=== PATIENT | female | born 1980 | race American Indian/Alaskan Native ===

== ENCOUNTER 2024-06-02 22:20 | Emergency (ER) | payer OTHER ==
[~2024-06-02] VITALS: Ht 170.2 cm; Wt 90.0 kg
[~2024-06-02 22:20] MED LIST: BACTRIM DS TAB1 EACH PO; CALCIUM + D SO1 EACH PO; CALCIUM500 MG PO; CYCLOBENZAPRINE10 MG PO; FLEXERIL10 MG PO; FLONASE ALLERG9.9 ML NAS; FLONASE2 SPRAY; GENTAMICIN SULFA5 ML OPTH; HYDROCODON-ACE1 EAC8 PO; IBU800 MG PO; KEFLEX500 MG PO; LEVOTHYROXINE25 MC1 PO; METAMUCIL0.4 GM PO; MINERAL OIL1 ML PO; MIRALAX119 GM PO; MIRALAX17 GM PO; NAPROXEN500 MG PO; REGLAN10 MG PO; ROBAXIN500 MG PO; SENOKOT-S TABL1 EACH PO; TOBRADEX ST EYE5 ML OPTH; TYLENOL EXTRA500 MG PO; VICODIN HP 10-1 EAC1 PO; VITAMIN B-121000 MC3 PO; VITAMIN D-40010 MCG PO; VITAMIN D5000 UNIT PO
[2024-06-02] MEDS ORDERED: SODIUM CHLORIDE 0.9% 500 ML IV PRN (23:15)
[2024-06-02 23:37] LABS: BASOPHILS 0.4 % (0-2); HEMATOCRIT 29.8 % (35.0-50.0); HEMOGLOBIN 9.3 g/dL (12.0-18.0); LYMPHOCYTES 22.6 % (24-44); MCH 22.7 (27-36); MCHC 31.2 g/dl (30-36); MCV 72.9 fl (81-99); MONOCYTES 4.9 % (0-12); NEUTROPHILS 71.1 % (39-80); PLATELET COUNT 268 K/uL (140-440); RBC 4.09 M/ul (4.3-5.7); RDW 16.6 (10.5-15.0)
[2024-06-02 23:53] LABS: ALBUMIN 3.2 g/dL (3.4-5.0); ALBUMIN/GLOBULIN RATIO 0.89 (1.1-2.4); ANION GAP 9.3 (7-21); BILIRUBIN, TOTAL 0.3 ng/dL (0.2-1.0); BUN/CREATININE RATIO 11.86 (6.0-28.6); CALCIUM 8.6 mg/dL (8.5-10.1); CREATININE, SERUM 0.59 mg/dL (0.55-1.02); POTASSIUM 3.3 mmol/L (3.5-5.1); PROTEIN, TOTAL 6.8 g/dL (6.4-8.2)
[2024-06-03 00:14] LABS: BILIRUBIN, URINE NEGATIVE (negative); BLOOD/HGB, URINE NEGATIVE (Negative); KETONE, URINE NEGATIVE (Negative); LEUK ESTERASE, URINE NEGATIVE (negative); NITRITE, URINE NEGATIVE (negative); PH, URINE 7.5 (5-7)
[2024-06-03] MEDS ORDERED: PYRIDIUM200 MG PO (00:35)
[2024-06-03] MEDS ORDERED: OXYBUTYNIN CHLOR5 MG PO (00:36)
[2024-06-03] MEDS ORDERED: oxyBUTYnin chloride 5 MG TAB PO ONE (00:45)
[2024-06-03 01:08] VITALS: BP 118/66
[2024-06-03 06:04] LABS: AMPHETAMINES, URINE POSITIVE (NEGATIVE); BARBITURATES, URINE NEGATIVE (NEGATIVE)
[2024-06-03 06:05] LABS: BENZODIAZEPINE, URINE NEGATIVE (NEGATIVE); BUPRENORPHINE, URINE NEGATIVE (NEGATIVE); CANNABINOID, URINE POSITIVE (NEGATIVE); COCAINE, URINE NEGATIVE (NEGATIVE); ECSTASY, URINE NEGATIVE (NEGATIVE); FENTANYL, URINE POSITIVE (NEGATIVE); METHADONE, URINE NEGATIVE (NEGATIVE); OPIATES, URINE NEGATIVE (NEGATIVE); OXYCODONE, URINE NEGATIVE (NEGATIVE); PHENCYCLIDINE, URINE NEGATIVE (NEGATIVE)
== END 2024-06-03 01:05 | disposition home or self-care (01) ==
LOC: ED 22:20
PROVIDERS: Family Medicine
DX: R30.0 Dysuria (principal); R33.9 Retention of urine, unspecified; Z88.8 Allergy status to other drugs, medicaments and biological substances; Z79.899 Other long term (current) drug therapy
CPT/HCPCS: 36415; 51701; 51798; 80053; 80307; 81003; 85025; 99283-25; J7040

== ENCOUNTER 2024-10-09 17:05 | Inpatient (IN) | payer OTHER ==
[~2024-10-09] VITALS: Ht 170.2 cm; Wt 89.6 kg
[~2024-10-09 17:05] MED LIST changes: +OXYBUTYNIN CHLOR5 MG PO; +PYRIDIUM200 MG PO
[2024-10-09] MEDS ORDERED: ondansetron HCL 4 MG/2 ML VIAL IV ONE (18:45)
[2024-10-09 19:01] LABS: BASOPHILS 0.2 % (0-2); EOSINOPHILS 0.3 % (0-6); HEMATOCRIT 35.9 % (35.0-50.0); HEMOGLOBIN 11.6 g/dL (12.0-18.0); LYMPHOCYTES 20.5 % (24-44); MCH 22.8 (27-36); MCHC 32.3 g/dl (30-36); MCV 70.6 fl (81-99); MONOCYTES 8.1 % (0-12); NEUTROPHILS 70.9 % (39-80); PLATELET COUNT 304 K/uL (140-440); RBC 5.08 M/ul (4.3-5.7); RDW 19.7 (10.5-15.0)
[2024-10-09 19:18] LABS: ALBUMIN 3.3 g/dL (3.4-5.0); ALBUMIN/GLOBULIN RATIO 0.87 (1.1-2.4); ANION GAP 13.4 (7-21); BILIRUBIN, TOTAL 0.9 mg/dL (0.2-1.0); BUN/CREATININE RATIO 9.25 (6.0-28.6); CREATININE, SERUM 0.54 mg/dL (0.55-1.02); POTASSIUM 3.4 mmol/L (3.5-5.1); PROTEIN, TOTAL 7.1 g/dL (6.4-8.2)
[2024-10-09 19:22] LABS: BILIRUBIN, URINE NEGATIVE (negative); BLOOD/HGB, URINE NEGATIVE (Negative); KETONE, URINE TRACE (Negative); LEUK ESTERASE, URINE NEGATIVE (negative); NITRITE, URINE NEGATIVE (negative); PH, URINE 7.5 (5-7)
[2024-10-09] MEDS ORDERED: LACTATED RINGER'S 1,000 ML IV ONE (19:45)
[2024-10-09] MEDS ORDERED: KETOROLAC TROMETHAMINE 30 MG/ML VIAL IV ONE (19:45)
[2024-10-09] MEDS ORDERED: GLYCERIN 2 GM SUPP PR ONE (19:45)
[2024-10-09] MEDS ORDERED: FAMOTIDINE 20 MG/ 2 ML VIAL IV ONE (20:00)
[2024-10-09] MEDS ORDERED: LACTATED RINGER'S 1,000 ML IV SCH (21:30)
[2024-10-09] MEDS ORDERED: HYDROmorphone HCL 1 MG/ML SYR IV PRN (21:30)
[2024-10-09] MEDS ORDERED: MEROPENEM 2,000 MG in SODIUM CHLORIDE 0.9% 250 ML IV ONE (21:30)
[2024-10-09] MEDS ORDERED: MEROPENEM 1,000 MG VIAL IV ONE (21:45)
[2024-10-09 22:43] LABS: AMPHETAMINES, URINE POSITIVE (NEGATIVE); BARBITURATES, URINE NEGATIVE (NEGATIVE); BENZODIAZEPINE, URINE NEGATIVE (NEGATIVE); BUPRENORPHINE, URINE NEGATIVE (NEGATIVE); COCAINE, URINE NEGATIVE (NEGATIVE); ECSTASY, URINE POSITIVE (NEGATIVE); FENTANYL, URINE POSITIVE (NEGATIVE); OPIATES, URINE NEGATIVE (NEGATIVE); OXYCODONE, URINE NEGATIVE (NEGATIVE)
[2024-10-09] MEDS ORDERED: KETOROLAC TROMETHAMINE 30 MG/ML VIAL ONE (22:45)
[2024-10-09] MEDS ORDERED: propofoL 200 MG/20 ML VIAL ONE (22:45)
[2024-10-09] MEDS ORDERED: ondansetron HCL 4 MG/2 ML VIAL ONE (22:45)
[2024-10-09] MEDS ORDERED: DEXAMETHASONE SOD PHOS 4 MG/ML VIAL ONE (22:45)
[2024-10-09] MEDS ORDERED: fentaNYL citrate 100 MCG/2 ML VIAL ONE ×2 (22:46→23:16)
[2024-10-09] MEDS ORDERED: LIDOCAINE HCL 2% 5 ML SDV ONE (22:46)
[2024-10-09] MEDS ORDERED: SUCCINYLCHOLINE IN 0.9% NACL 200 MG/10 ML SYRINGE ONE (22:46)
[2024-10-09 22:56] LABS: CANNABINOID, URINE POSITIVE (NEGATIVE); METHADONE, URINE POSITIVE (NEGATIVE); PHENCYCLIDINE, URINE NEGATIVE (NEGATIVE)
[2024-10-09] MEDS ORDERED: ROCURONIUM BROMIDE 50 MG/5 ML SYR ONE (23:07)
[2024-10-10] VITALS (17 sets, daily range): BP systolic 123–166; BP diastolic 76–93
[2024-10-10] MEDS ORDERED: SEVOFLURANE 250 ML BTL ONE (00:23)
[2024-10-10] MEDS ORDERED: SODIUM CHLORIDE 0.9% 20 ML IV ONE ×2 (00:24→02:08)
[2024-10-10] MEDS ORDERED: HYDROmorphone HCL 2 MG/ML VIAL ONE (00:24)
[2024-10-10] MEDS ORDERED: ROCURONIUM BROMIDE 50 MG/5 ML SYR ONE (00:27)
[2024-10-10] MEDS ORDERED: LACTATED RINGER'S 1,000 ML IV ONE (00:44)
[2024-10-10] MEDS ORDERED: fentaNYL citrate 100 MCG/2 ML VIAL ONE (02:06)
[2024-10-10] MEDS ORDERED: SODIUM CHLORIDE 0.9% 40 ML IV ONE (02:07)
[2024-10-10] MEDS ORDERED: dexmedeTOMIDine HCl 200 MCG/2 ML VIAL ONE (02:07)
[2024-10-10] MEDS ORDERED: Ropivacaine HCl 0.5% 30 ML VIAL ONE (02:07)
[2024-10-10] MEDS ORDERED: DEXAMETHASONE SOD PHOS 4 MG/ML VIAL ONE (02:07)
[2024-10-10] MEDS ORDERED: SUGAMMADEX SODIUM 200 MG/2 ML ML ONE (02:46)
--- NOTE | 2024-10-10 03:11 | NUR ---
10/10/24 0311 Sheets,Marge 0254 PT ARRIVED TO PACU WITH ORAL AIRWAY AND 6L VIA MASK. RESP EVEN AND UNLABORED. 0307 PT STARTED SWALLOWING AND MOVED HER HEAD TO VERBAL STIMULI. PT FOLLOWED COMMANDS TO OPEN HER MOUTH AND ORAL AIRWAY AND O2 MASK REMOVED. PT TURNED HEAD TO SIDE AND EYES REMAIN CLOSED. RESP EVEN AND UNLABORED.
[2024-10-10] MEDS ORDERED: MIDAZOLAM HCL 2 MG/2 ML VIAL IV PRN (03:15)
[2024-10-10] MEDS ORDERED: KETOROLAC TROMETHAMINE 30 MG/ML VIAL IV PRN (03:15)
[2024-10-10] MEDS ORDERED: IBLOOD GLUCOSE TEST STRIP 1 EA TEST VI PRN (03:15)
[2024-10-10] MEDS ORDERED: fentaNYL citrate 50 MCG/ML SDV IV PRN (03:15)
[2024-10-10] MEDS ORDERED: ondansetron HCL 4 MG/2 ML VIAL IV PRN ×2 (03:15)
[2024-10-10] MEDS ORDERED: MORPHINE SULFATE 10 MG/ML VIAL IV PRN (03:15)
[2024-10-10] MEDS ORDERED: NALOXONE HCL 0.4 MG SYR IV PRN (03:15)
[2024-10-10] MEDS ORDERED: LACTATED RINGER'S 1,000 ML IV SCH (03:15)
[2024-10-10] MEDS ORDERED: LIDOCAINE 2% VISCOUS 6 ML SYR TOP ONE (03:30)
[2024-10-10] MEDS ORDERED: MIRALAX17 GM PO (04:05)
--- NOTE | 2024-10-10 05:19 | NUR ---
LATE ENTRY: PATIENT ARRIVED TO UNIT FROM PACU AT 03:30. PATIENT AO TO PERSON, PLACE, TIME AND SITUATION. VS CHARTED. REPORT RECEIVED FROM AIME GILMORE. CELESTINO DRAIN IN PLACE AND DRAINING SEROSANGUINOUS FLUID. MIDLINE INCISION INTACT WITH SMALL AMOUNT OF DRAINAGE TO INFERIOR PORTION OF SURGICAL DRESSING. STOMA APPEARS DARK RED. COLOSTOMY APPLIACE IN PLACE WITH SMALL AMOUNT OF SEROSANGUINOUS OUTPUT. PATIENT ORIENTED TO NURSING STAFF, ROOM AND CALL LIGHT FUNCTIONS. PATIENT ARRIVED TO UNIT AFEBRILE AND ON ROOM AIR.
[2024-10-10] MEDS ORDERED: SODIUM CHLORIDE 0.9% 100 ML IV ONE ×3 (05:30→18:54)
[2024-10-10 05:33] LABS: BASOPHILS 0.3 % (0-2); HEMATOCRIT 36.7 % (35.0-50.0); HEMOGLOBIN 11.7 g/dL (12.0-18.0); LYMPHOCYTES 6.9 % (24-44); MCH 22.8 (27-36); MCHC 31.9 g/dl (30-36); MCV 71.5 fl (81-99); MONOCYTES 5.8 % (0-12); PLATELET COUNT 276 K/uL (140-440); RBC 5.14 M/ul (4.3-5.7)
[2024-10-10 05:40] LABS: ALBUMIN 3.1 g/dL (3.4-5.0); ALBUMIN/GLOBULIN RATIO 0.82 (1.1-2.4); ANION GAP 11.7 (7-21); BILIRUBIN, TOTAL 0.8 mg/dL (0.2-1.0); BUN/CREATININE RATIO 12.12 (6.0-28.6); CALCIUM 8.5 mg/dL (8.5-10.1); CREATININE, SERUM 0.66 mg/dL (0.55-1.02); POTASSIUM 3.7 mmol/L (3.5-5.1); PROTEIN, TOTAL 6.9 g/dL (6.4-8.2)
[2024-10-10] MEDS ORDERED: MEROPENEM 500 MG in SODIUM CHLORIDE 0.9% 100 ML IV SCH (06:00)
[2024-10-10] MEDS ORDERED: MEROPENEM 1,000 MG in SODIUM CHLORIDE 0.9% 100 ML IV SCH (06:00)
--- NOTE | 2024-10-10 06:05 | NUR ---
PATIENT CONTINUES TO ENDORSE 9/10 PAIN IN ABDOMEN STATING "IT HURTS LIKE WHEN I CAME IN" PATIENT IS HOLLERING IN PAIN IN SPITE OF PHARMACOLOGICAL INTERVENTIONS. PATIENT APPEARS ANXIOUS AND HARD TO CONSOLE. CALL PLACED TO DR. SCOTT. ORDERS RECEIVED FOR THE FOLLOWING: CHANGE IV DILAUDID TO 0.5-1.0MG Q30 MIN PRN SEVERE PAIN, 4MG PO DILAUDID Q4H PRN AND GIVE 1MG IV ATIVAN X ONE DOSE. PATIENT ABLE TO FEEL COLD SENSATION OF ALCOHOL WIPE ON ABD IN ALL QUADRANTS. DR. SCOTT NOTIFIED.
[2024-10-10] MEDS ORDERED: HYDROmorphone HCL 4 MG TAB PO PRN (06:15)
[2024-10-10] MEDS ORDERED: LORazepam 2 MG/ML VIAL IV ONE (06:15)
[2024-10-10] MEDS ORDERED: HYDROmorphone HCL 1 MG/ML SYR IV PRN (06:15)
--- NOTE | 2024-10-10 06:25 | NUR ---
ATIVAN ADMINISTERED. PATIENT NOW RESTING WITH EYES CLOSED. PATIENT REMAINS ON RA WITH O2 SAT 97-99%.
--- NOTE | 2024-10-10 06:51 | NUR ---
PATIENT WOKE AND C/O OF 9/10 PAIN. PATIENT RESTLESS IN BED AND CRYING. MEDICATED WITH 1MG IV DILAUDID. RR14, SPO2 98% ON RA. CALL LIGHT IN REACH. GUSTAVO DRAIN TOTAL OUTPUT SINCE ARRIVAL TO UNIT: 175. URINE OUTPUT SINCE ARRIVAL TO UNIT: 750. URINE IS DARK YELLOW TO SALVADOR COLORED. CELIS REMAINS IN PLACE AND PATENT. EDUCATION PROVIDED ON NOT ATTEMPTED TO TURN AND LAY FULLY ON RIGHT SIDE D/T CELESTINO DRAIN IN PLACE. EDUCATION ALSO PROVIDED TO BE MINDFUL OF DRAIN AND CALL NURSING STAFF FOR ASSISTANCE. CALL LIGHT IN REACH. PATIENT RESTING WITH EYES CLOSED AT THIS TIME.
--- NOTE | 2024-10-10 07:45 | NUR ---
REPORT RECEIVED FROM NETWORK SYSTEMS CONSULTANT RN. PATIENT RESLTESS IN BED. MOANING WITH CONSTANT MOVEMENT OF UPPER AND LOWER EXTREMITIES. PATIENT MOVING HOB UP AND DOWN CONSTANTLY. RN IN ROOM TO DISCUSS POC AND PAIN MANAGMENT. RN GAVE ICE CHIPS AND SMALL SIPS OF WATER. PATIENT TOLLERATED WELL WITH NO ISSUES OR CONCERNS FOR SWALLOWING. PRN PO PAIN MEDICATIONS ADMINSTERED. MEDICATION SWALLOWED WELL WITH NO CONCERNS.
--- NOTE | 2024-10-10 08:05 | NUR ---
PATIENT ALERT AND ORIENTED TO PERSON, PLACE AND LOCATIONS. UNAWARE OF DATE BUT KNOWS CORRECT DATE WITHIN 2 WEEKS. SPO2 WNL ON ROOM AIR, RR WNL NO NOTED RESPIRATORY DISTRESS. HEART SOUNDS REGUALR, NORMAL SINUS RYTHYM NOTED. PATIENT CONITNUES TO BE RESTLESS IN BED. NOTED METHADONE ON URINE TOX. DISCUSSED WITH PATIENT METHADONE USAGE. PATIENT REPORTS SHE HAS BEEN TAKING A "HALF DOSE" FROM HER FRIEND FOR THE LAST FEW DAYS FOR HER SEVERE ABD PAIN/CONSTIPATION. PATIENT IS UNAWARE OF HOW LARGE A DOSE SHE WAS TAKING. PT ALSO REPORTS SHE HAD TAKEN FENTANYL IN THE LAST FEW DAYS TO HELP WITH THE PAIN/CONSTIPATION BUT IS UNAWARE OF THE DOSE. LUNGS CTA, BOWEL TONES ACITVE X 4 QUADRANTS. 2 LAP SITES WITH BANDAIDS IN PLACE APPEAR WNL. MIDLINE INCISION WITH DRESSING INTACT, NOTED SMALL AMOUNT OF DRAINAGE TO INFERIOR ASPECT OF DRESSING. CELESTINO DRAIN IN PLACE AND FUNCTIONING WNL.CELIS CATHERTER DRAINAING YELLOW URINE. NOTED EDMEA TO BLLE. SCD'S IN PLACE. IV SITES PATENT AND WNL. INF INSUING WITH NO ISSUES OR CONCERNS. VSS.
[2024-10-10] MEDS ORDERED: FAMOTIDINE 20 MG/ 2 ML VIAL IV SCH (09:00)
--- NOTE | 2024-10-10 09:00 | NUR ---
PATIENT WAXES AND WANES ON WAKING AND CALLING OUT/MOANING AND DRIFTING OFF TO SLEEP.
--- NOTE | 2024-10-10 09:44 | NUR ---
CALL LIGHT ANSWERED. PATIENT RESTLESS, MOVING HOB UP AND DOWN CONSTANTLY. MOANING AND GROANING. RN IN TO ASSESS PAIN. REPORTS PAIN IS A 8/10 TO LOWER ABDOMEN AND LOWER BACK. PRN ADMINSTERED. DRESSINGS RAMAIN CDI. DENIES ANY NASEA, REORTS SHE FEELS LIKE SHE HAS "GAS". ICE CHIPS PFFERED. NO FURTHER NEEDS. PATIENT SETTLING AT THIS TIME.
--- NOTE | 2024-10-10 10:45 | NUR ---
PATIENT RESTING IN BED WITH EYES CLOSED. RESPIRATIONS EVEN AND UNLABORED. PATIENT APPEARS TO BE COMFORTABLE AT THIS TIME. IVF INFUSING WNL. CALL LIGHT WITHIN REACH. BED ALARM IN PLACE.
--- NOTE | 2024-10-10 11:55 | NUR ---
PATIENT RESTING IN BED, REPORT PAIN LEVEL 6/10. PRN ADMINSTERED. ASSESSMENT OCMPLETED. MIDLINE INCISION REMAINS WNL NO NEW DRAINAGE NOTED. CELESTINO DRAIN EMPTIED, CELIS CATHERTER DRAINING YELLOW URINE. BOWEL TONES REMAINS ACTIVE. NEW COLOSTOMY WITH APPLIANCE IN PLACE, STOMA RED IN COLOR WNL. VSS. IV SITE REMAIN PATENT.
--- NOTE | 2024-10-10 13:00 | NUR ---
IN ROOM TO SEE PATIENT.
[2024-10-10] MEDS ORDERED: POLYETHYLENE GLYCOL 3350 1 PACKET PO SCH (13:50)
[2024-10-10] MEDS ORDERED: IBUPROFEN 600 MG TAB PO PRN (14:00)
[2024-10-10] MEDS ORDERED: ACETAMINOPHEN 500 MG TAB PO SCH (14:00)
--- NOTE | 2024-10-10 14:14 | HP ---
[facility] [address], [place] [address] Signed ADMISSION DATE: 10/09/2024 REASON FOR ADMISSION: Free intraperitoneal air, probable perforated ulcer. HISTORY OF PRESENT ILLNESS: This 43-year-old [place] woman has ongoing drug substance abuse issues including use of fentanyl and occasional use of marijuana. In the past 48 hours, she has had rather significant pain in the epigastric area. She presented to the emergency room, was thoroughly evaluated by Dr. Avelar. This included a CT scan of the abdomen, which shows moderate volume of pneumoperitoneum mostly in the right upper abdomen. There is some gas and thickened thinning of the gastric wall suggesting possible gastric ulcer perforation. She is admitted for further evaluation and care. The patient denies any prior history of actual ulcer or stomach surgery in any way. She does use fentanyl in a relatively routine way as well as smokes. Her surgical history does include hysterectomy, but she now has what sounds like pelvic relaxation issues with probable vaginal prolapse. Surgery is planned for that at some point. The patient does have substance abuse using fentanyl and marijuana as previously described. She recently used yesterday the fentanyl to control her pain. Additionally, the patient has had two pieces of pizza and part of a diet Coke while waiting in the emergency room, though she was advised against doing this and was not known to have done this by her attending nurses. SOCIAL HISTORY: She is accompanied by boyfriend. He was laying on the ground, deep and asleep right now. She has three children, all of them grown, the youngest 21 years of age. REVIEW OF SYSTEMS: She denies any shortness of breath or actual chest pain. She has had no hematemesis or blood per rectum. Denies prior history of ulceration. PHYSICAL EXAMINATION: GENERAL: A pleasant, fair complexion [place] woman who is quite uncomfortable and somewhat teary-eyed. HEENT: The mucous membranes are slightly moist. Trachea is midline. She has no crepitus in the neck. Electronically Signed By: NIKOLE SCOTT MD 10/10/24 1414 PATIENT NAME: SHAMA MERLOS HISTORY AND PHYSICAL DATE OF : 80 REPORT #: [id number] PHYSICIAN: NIKOLE SCOTT MD PCP: RON GONZALEZ MD REPORT IS CONFIDENTIAL AND NOT TO BE RELEASED WITHOUT AUTHORIZATION [facility] [address], [place] [address] Signed CHEST: Clear. HEART: Regular without murmur. ABDOMEN: Scaphoid. There is marked tenderness in epigastric area. There is no palpable mass. She has no ascites. Left lower abdomen is nontender at this time. LABORATORY STUDIES: Show white count of only 8.6, hematocrit is 35.9, platelets are 304,000. Chem profile shows potassium of 3.4, creatinine of 0.54. Liver enzymes are normal. Albumin is 3.3. Beta HCG is negative (recall patient has had hysterectomy as well). Urinalysis is essentially normal. The CT scan report has been reviewed and previously described. Personal review of the images show free intraperitoneal air with some gastric contents. The gallbladder appears normal. There is haziness in the area of the naya hepatis. I see no evidence of diverticular disease in the left lower abdomen. There is some free air in this area, however too. ASSESSMENT: The patient is at most risk of perforated gastric ulcer given her smoking, location of pain and so forth. It is surprising she does have a more elevated white count, though she is markedly tender on palpation. She does not have much of any tenderness in the left lower abdomen and therefore gastric ulcer or duodenal ulcer perforation is the most likely underlying diagnosis. I discussed the findings on CT scan and clinical examination and have recommended diagnostic laparoscopy and definitive management of whatever perforated viscus is identified. Most likely this would be a perforated pre-pyloric ulcer of the stomach, though other etiologies could be present including perforated diverticulitis (less likely) or perforated small bowel or stomach or other hollow viscus not foreseen at this point. The risk of bleeding, infection, need for open procedure, and so forth were all reviewed in detail. She understands, wished to proceed. Though she did not heed the direction of nurse and physician to avoid eating, she has had some food while under observation in the emergency room. I do not believe this would or should delay emergency intervention to provide definitive treatment of the underlying problem whatever its etiology. She has begun treatment with meropenem and IV fluids are running. We will plan to do this operation as soon as the team can arrive. It is now 10 p.m. Nikole Scott MD Electronically Signed By: NIKOLE SCOTT MD 10/10/24 1414 PATIENT NAME: SHAMA MERLOS HISTORY AND PHYSICAL DATE OF : [birth year] REPORT #: [id number] PHYSICIAN: NIKOLE SCOTT MD PCP: RON GONZALEZ MD REPORT IS CONFIDENTIAL AND NOT TO BE RELEASED WITHOUT AUTHORIZATION [address] [address] Signed /SUMMER /[id number] cc: MD Jonathan Colby MD Copies: RON GONZALEZ MD ~ Electronically Signed By: NIKOLE SCOTT MD 10/10/24 1414 PATIENT NAME: JENSSHAMARIZWANA BARRIENTOS HISTORY AND PHYSICAL DATE OF : 80 REPORT #: [id number] PHYSICIAN: NIKOLE SCOTT MD PCP: RON GONZALEZ MD REPORT IS CONFIDENTIAL AND NOT TO BE RELEASED WITHOUT AUTHORIZATION
--- NOTE | 2024-10-10 14:14 | OR ---
[facility] [address], [place] [address] Signed DATE OF OPERATION: 10/10/2024 SURGEON: Nikole Scott MD PREOPERATIVE DIAGNOSIS: Generalized peritonitis with free intra-abdominal air, source uncertain. POSTOPERATIVE DIAGNOSIS: Sigmoid perforation secondary to stercoral ulceration. PROCEDURES: 1. Extensive exploratory laparoscopy. 2. Open laparotomy with segmental colonic resection and end colostomy and Valdo's pouch. 3. Fecal disimpaction, intraoperative. 4. Splenic flexure mobilization. All this prolonged, complicated and difficult. ANESTHESIA: General endotracheal; Tennille White CRNA. INDICATION: This 43-year-old woman has numerous medical problems including obesity and incessant drug use. She presented to the emergency room this evening with generalized abdominal pain that had been going on for [address] Jonathan Avelar included a CT scan of the abdomen, which showed moderate amount of free intraperitoneal air. There was inflammatory change in the left lower abdomen as well as in the epigastric area. She has been fluid resuscitated and has been recommended to undergo laparoscopy and laparoscopic remedy of the problem if possible. The risk of bleeding, infection, need for bowel resection, need for ostomy, and other unforeseen complications was reviewed with her in detail prior to operation. Understanding that she wished to proceed. FINDINGS: On laparoscopy, there was no evidence of generalized peritoneal contamination. Extensive evaluation of the upper abdomen on the high probability that this represented peptic perforation was undertaken, but there was in fact no gastric or duodenal ulceration or perforation. The gallbladder was floppy and relatively normal as was the liver. The small bowel was run from the terminal ileum to the ligament of Treitz showing a jejunal diverticulum, but without perforation or sign of ischemia. Ultimately, laparoscopy did confirm an area of a microperforation of the sigmoid colon Electronically Signed By: NIKOLE SCOTT MD 10/10/24 1414 PATIENT NAME: SHAMA MERLOS OPERATIVE REPORT DATE OF : 80 REPORT #: [id number] PHYSICIAN: NIKOLE SCOTT MD PCP: RON ROWLAND MD REPORT IS CONFIDENTIAL AND NOT TO BE RELEASED WITHOUT AUTHORIZATION [facility] [address] [place], [place] [address] Signed and deserosalization that was extensive related to very hard stool ball (stercoral colitis). This necessitated segmental bowel resection. Given the stool burden proximally and distally, primary anastomosis was deemed inadvisable and decompression of extensive stool burden was undertaken (fecal disimpaction intraoperatively) so as to allow for resolution of her colonic problem anticipating takedown of the colostomy in the future. DESCRIPTION OF PROCEDURE: The patient was brought to the operating room, given a general endotracheal anesthetic. An orogastric tube was placed. A Castro catheter was additionally placed. The abdomen was prepared with chlorhexidine solution and draped sterilely. She does have a fair amount of abdominal obesity. An infraumbilical incision was made and using an open Mary cannula technique, the abdomen was entered and pneumoperitoneum was achieved to a level of 14 mmHg of carbon dioxide gas. Intra-abdominal inspection showed no sign of ascites or carcinomatosis nor gross contamination. Attention was turned first to the upper abdomen as that was considered the more likely site of free air. Irrigation was undertaken in the area of the pylorus and there was some turbid fluid in the area. Further manipulation showed incomplete evaluation and therefore two additional trocars were placed in the epigastric and right midclavicular line. With two-hand manipulation, the duodenum and surrounding structures could be more fully evaluated. There appeared to be no evidence of perforated duodenal or gastric ulcer. Irrigation was undertaken and insufflation through the orogastric tube in the upper abdomen undertaken to assess for enteric leak. There was none and good security of the integrity of the stomach and duodenum was noted. Mindful that her pneumoperitoneum was significant, identification of the site of perforation was essential and attention to the left lower quadrant and lower abdomen was undertaken. Initial examination showed no obvious gross collection of fluid or focus of purulence or anything of that sort. A suprapubic port was placed to allow for two-hand manipulation of the small bowel. The small bowel was examined with all due care from the terminal ileum proximally to the ligament of Treitz. The only finding noted was a jejunal diverticulum as well as a small antimesenteric tag of fat which may represent a remnant of a Meckel's diverticulum, but certainly no lesion to account for free air or inflammatory change. Specifically, the single jejunal diverticulum was well intact. Mindful that some source of perforation did occur to allow for free air to the extent that was noted on the CT, reinspection of the upper abdomen was undertaken again confirming no sign of problem. From an approach on the patients right side laparoscopic manipulation of the intra abdominal contents was undertaken with focus on the left colon and sigmoid. Ultimately it was found that a small microperforation with enteric staining was noted. The segment of colon corresponding to this was in the Electronically Signed By: NIKOLE SCOTT MD 10/10/24 1414 PATIENT NAME: SHAMA MERLOS OPERATIVE REPORT DATE OF : 80 REPORT #: [id number] PHYSICIAN: NIKOLE SCOTT MD PCP: RON ROLWAND MD REPORT IS CONFIDENTIAL AND NOT TO BE RELEASED WITHOUT AUTHORIZATION [facility] [address] [place], [place] [address] Signed sigmoid. Impressive linear deserosalization of the taenia libera area was noted as well. Manipulation of the colon revealed dense hard stool balls associated with this area almost certainly represented stercoral perforation. On the basis of her underlying microperforation of the sigmoid and the hard stool ball simple drainage was unlikely to beneficial, particularly given the extent of deserosalization of that segment of the colon. On that basis low midline laparotomy was performed with a 15 blade inferior to the umbilicus and later extended just above it, allowing for entry to the abdominal cavity. A Bookwalter retractor was used. Small bowel was packed to the right side of the abdomen and full evaluation of colon could be undertaken. The area in question with a microperforation was easily identified. Beneath it was a dense hard stool ball and deserosalization of the wall of the colon more proximally. Palpation within the rectum showed numerous hard stool balls as well. Elsewhere, the right colon and transverse colon had a thick doughy texture consistent with medium soft stool. It was unlikely that anything other than segmental resection of the perforated bowel would be successful. The white line of Toldt was mobilized using electrocautery and the mesentery corresponding to the mid left colon and sigmoid was incised with electrocautery. Sequential application of hemostats to the vascular pedicles was undertaken and they were secured with 0 silk ties. Rectal stool balls were milked in a retrograde fashion up to the area designated appropriate for resection, which was essentially the distal sigmoid. Antegrade milking of dense stool balls from the left colon was undertaken to be entrapped in the area for resection. A ROCHELLE stapling device was used to transect the mid descending colon as well as the rectosigmoid junction distally. The specimen was passed off the table. Photographs were taken. The colon that remained was completely viable in every way. It was unprepped bowel, but more importantly had a considerable amount of soft diana like stool in the right transverse colon and dense hard stool balls in the left colon and splenic flexure. The splenic flexure was mobilized with all due care using blunt electrocautery dissection. This was rather time consuming as it extended high up to the spleen. When the splenic flexure was fully mobilized, antegrate disimpaction of stool was undertaken. The stapled end of the left colon was incised and secured into a basin and stool balls and diana-like stool milked from the colon into the container. When as much stool as could be forced out was complete, a stapling device was used to resecure the left colon. Irrigation was undertaken throughout the abdominal cavity. Through right lower stab incision, a 7 mm flat Skip drain was placed in the depths of the pelvis. Irrigation was undertaken more fully. An area marked appropriate for end colostomy was designated on the left side of the abdomen. The skin was elevated and incised transversely with a 20 blade and the subcutaneous tissue Electronically Signed By: NIKOLE SCOTT MD 10/10/24 1414 PATIENT NAME: SHAMA MERLOS OPERATIVE REPORT DATE OF : 80 REPORT #: [id number] PHYSICIAN: NIKOLE SCOTT MD PCP: RON ROWLAND MD REPORT IS CONFIDENTIAL AND NOT TO BE RELEASED WITHOUT AUTHORIZATION [address] [address] Signed with electrocautery. A cruciate incision was made in t he rectus sheath, tunneling the colon through the rectus muscle proper. This was delivered with a Jerusalem clamp, taking special care to see that there was no twisting of the colon as it exited from the abdominal cavity. Irrigation was undertaken more fully. The small bowel returned to its normal position and omentum used to cover the enteric contents. The midline fascia was reapproximated with running bidirectional #1 PDS suture. Subcutaneous tissue copiously irrigated and skin closed with stapling device. The segment of colon withdrawn through the ostomy site. The end colostomy was then matured with interrupted 3-0 Vicryl suture. Excellent viability to the colostomy was noted. Digital examination showed the colon to exit in a somewhat tangential manner, but dominantly through the left rectus abdominis muscle. An ostomy appliance was applied. The drain was then applied to bulb suction. Acticoat dressings were applied to the midline incision areas. Drains attached to bulb suction. The patient was extubated in the operating room, taken to the recovery room in good condition having suffered no complication. Sponge, needle, and instrument counts reported as correct x3. The operation was prolonged, complicated, and difficult lasting 4 hours for the aforementioned reasons. MD PRASHANT Genao/PATTI /[id number] cc: Dr. Jonathan Rowland MD Copies: RON ROWLAND MD ~ Electronically Signed By: NIKOLE SCOTT MD 10/10/24 1414 PATIENT NAME: SHAMA MERLOS OPERATIVE REPORT DATE OF : 80 REPORT #: [id number] PHYSICIAN: NIKOLE SCOTT MD PCP: RON ROWLAND MD REPORT IS CONFIDENTIAL AND NOT TO BE RELEASED WITHOUT AUTHORIZATION
--- NOTE | 2024-10-10 14:33 | NUR ---
PATIENT ASSISTED FROM BED TO RECLINER WITH 1 PA ASSIST. PATIENT TOLLERATED WELL. CALL LIGHT WITHIN REACH.
--- NOTE | 2024-10-10 15:30 | NUR ---
PATIENT MOANING AND REPORTS PAIN LEVEL HAS INCREASED. PATIENT REQUESTING TO GET BACK INTO BED. RN EDUCATED PATIENT ON IMPORTANCE OF BEING OUT OF BED POST OP. PATIENT REQUESTING MOMRE PAIN MEDICATIONS. PRN ADMISNTERED. REQUESTING ICE CHIPS. ICE CHIPS GIVEN. CALL LIGHT WITHIN REACH.
--- NOTE | 2024-10-10 16:08 | NUR ---
FAMILY/FRIEND IN TO VISIT PATIENT AT THIS TIME.
--- NOTE | 2024-10-10 17:09 | NUR ---
PATIENT SITTING IN RECLINER. EATING DINNER. REPORTS PAIN 12/22. PRN ADMINSTERED. NO FURTHER NEEDS. CALL LIGHT WITHIN REACH.
--- NOTE | 2024-10-10 18:00 | NUR ---
PATIENT ASSISTED BACK INTO BED. AMBULATED AROUND ROOM. PATIENT DID NOT TOLLERATE WELL. PATIENT CELESTINO DRAIN REMAINS WNL, DRESSING TO ABD REMAINS CDI. BOWEL TONES ACTIVE. IV SITE REMAIN PATENT. PATIENT WITH NO FURTHER NEEDS. CALL LIGHT WITHIN REACH.
[2024-10-10] MEDS ORDERED: SEVOFLURANE 250 ML BTL INH ONE (18:04)
--- NOTE | 2024-10-10 19:51 | NUR ---
CARGO SERVICE SUPERVISOR PROVIDED ICE CHIPS AND JELLO TO PT.
--- NOTE | 2024-10-10 19:52 | NUR ---
REPORT RECEIVED FROM AIME GIFFORD. PATIENT RESTING IN BED WHILE WATCHING TV. C/O ABDOMINAL PAIN. FRESH ICE GIVEN.
--- NOTE | 2024-10-10 20:15 | NUR ---
PATIENT RATES PAIN 7/10 IN HER ABDOMEN. MEDICATED PER EMAR WITH SCHEDULED TYLENOL AND PRN TORADOL. BOTH IVS FLUSHED AND PATENT HOWEVER, LEFT AC IV COVERED WITH WASHCLOTH AND COBAN PATIENT CONTINUOUSLY BENDS ARM THUS CLAMPING OFF IVF. PATIENT IS ANXIOUS AND TEARFUL BUT PARTICIPATES IN ASSESSMEMT. CATH CARE COMPLETED. FACE WASHED. GUSTAVO DRAIN HAS SMALL AMOUNT OF SEROSAGUINOUS OUTPUT. CELIS DRAINING CLEAR YELLOW URINE. OSTOMY BAG NOTED TO ALSO HAVE A SMALL AMOUNT OF SEROSANGUINOUS OUTPUT. STOMA IS DARK RED.
--- NOTE | 2024-10-10 20:31 | NUR ---
CALL PLACED TO DR. SCOTT. ORDER RECEIVED TO MAKE PATIENT MED/SURG STATUS.
--- NOTE | 2024-10-10 21:23 | NUR ---
PATIENT HAS HAD MULTIPLE VISITORS NICOLLE. REQUESTED THAT VISITS STAY BRIEF TO ENCOURAGE REST. PATIENT REQUESTS AYLIN VIERA PROVIDED. CALL LIGHT IN REACH.
--- NOTE | 2024-10-10 21:34 | NUR ---
PATIENT RESTING IN BED WITH EYES CLOSED. RESPIRATIONS EVEN AND UNLABORED. FACIAL EXPRESSION APPEARS RELAXED. CALL LIGHT IN REACH.
--- NOTE | 2024-10-10 22:11 | NUR ---
PATIENT C/O CELIS CATHETER LEAKING. UNDER SHEET NOTED TO BE WET BUT DID NOT SMELL LIKE OR LOOK LIKE URINE. BALLOON TESTED AND REMAINS SEATED. LINENS CHANGED. PATIENT DID NOT TOLERATED TURNING WELL BUT DECLINED GETTING OOB. COMPLAINS OF 8/10 PAIN AFTER TURNING ACTIVITY. MEDICATED WITH 4MG MORPHINE PER EMAR. PLAN OF CARE REVIEWED AND EDUCATION PROVIDE ABOUT REMOVING CELIS CATHETER, CELIS CARE AND INCREASED ACTIVITY. NOTIFIED PATIENT THAT WE WILL GET HER OOB AROUND 0500. PATIENT STARTED CRYING BUT REASSURED THAT REMAINING ACTIVE AND GETTING OOB IS IMPERATIVE TO GETTING HER BOWELS MOVING AND FOR HEALING. PATIENT CONTIUED TO CRY BUT SAID "OK". CALL LIGHT IN REACH.
--- NOTE | 2024-10-10 22:39 | NUR ---
PATIENT CONTINUES TO RATE PAIN 8/10. MEDICATED PER EMAR WITH PRN DILAUDID. THIS RN SAT AT BEDSIDE WITH PATIENT TO DISCUSS STOMA AND OSTOMY APPLIANCE CARE. BAG AND APPLIANCE GIVEN AND DEMONSTRATED USE. PATIENT BECAME TEARFUL BUT ASKED QUESTIONS ON CARE. ENCOURAGED PATIENT TO FAMILIARIZE HERSELF WITH APPLIANCE AND ASK QUESTIONS THEY ARISE.
[2024-10-11] VITALS (7 sets, daily range): BP systolic 124–138; BP diastolic 68–94
[2024-10-11] MEDS ORDERED: SODIUM CHLORIDE 0.9% 100 ML IV ONE ×4 (00:05→18:19)
--- NOTE | 2024-10-11 00:33 | NUR ---
PATIENT RESTING WITH EYES CLOSED. RESPIRATIONS EVEN AND UNLABORED. APPEARS RELAXED, NO MOANING OR GRIMACING NOTED. SPO2 97-100% ON ROOM AIR. CALL LIGHT IN REACH. IVF AND ABX INFUSING WITHOUT DIFFICULTY.
--- NOTE | 2024-10-11 00:54 | NUR ---
CELIS BAG EMPTIED FOR 500ML CLEAR YELLOW URINE. GUSTAVO DRAIN REMAINS COMPRESSED AND NOTED TO HAVE A SMALL AMOUNT OF SEROSANGUINOUS DRAINAGE. ABX INFUSING THROUGH LEFT AC IV BUT PATIENT FREQUENTLY BENDS ARM AND OCCLUDES INFUSION. AC WRAPPED WITH WASHCLOTH AND ARM PLACED ON PILLOW SUPPORT. IV FLUSHES EASILY. PATIENT MOANS AND WHINES DURING INTERVENTION STATING "THIS IS ALL FUCKING BULLSHIT" BUT THEN CLOSES EYES AND APPEARS TO RETURN TO REST. CALL LIGHT AND PERSON ITEMS IN REACH.
--- NOTE | 2024-10-11 01:15 | NUR ---
PATIENT REPORTS FEELING CLAUSTROPHOBIC AND DEMANDS SCD SLEEVES BE REMOVED. EDUCATION PROVIDED ON SCD USE BUT PATIENT CONTINUED TO REFUSE BUT AGREEABLE TO JUST TAKEING A BREAK FROM THEM AT THIS TIME.
--- NOTE | 2024-10-11 01:32 | NUR ---
[facility] ARRIVED AND TOOK PATIENT.
--- NOTE | 2024-10-11 02:13 | NUR ---
PATIENT LYING IN BED RESTING BUT WAKES TO RN IN ROOM. WHEN ASKED ABOUT PAIN AFTER IV MORPHINE DOSE, PATIENT STATES "I DON'T KNOW, I THINK SO". PATIENT PARTICIPATED IN ASSESSMENT. REMAINS AO X3. CELESTINO DRAIN REMAINS COMPRESSED WITH SMALL AMOUNT OF SEROSANGUINOUS OUTPUT; OUTPUT DOES NOT APPEAR TO BE INCREASED FROM LAST ASSESSMENT. CELIS REMAINS PATENT AND DRAINING CLEAR YELLOW URINE. CALL LIGHT IN REACH.
--- NOTE | 2024-10-11 03:27 | NUR ---
PATIENT HEARD MOANING. THIS RN TO ROOM. PATIENT FOUND TO BE USING THE MIRROR IN THE BEDSIDE TABLE TO LOOK AT STOMA AND APPLIANCE. PATIENT ASKS QUESTIONS ABOUT CARE. SHE WAS VERY TEARFUL AND EXPRESSING SELF IMAGE CONCERNS. THIS RN SAT 1:1 WITH PATIENT ALLOWING HER TO EXPRESS HER FEARS, CONCERNS AND ANSWERING QUESTIONS. PATIENT ENDORSES 7/10 PAIN. MEDICATED WITH PRN PO DILAUDID AND MOTRIN. ENCOURAGED REST. CALL LIGHT IN REACH.
--- NOTE | 2024-10-11 05:07 | NUR ---
PATIENT RESTING WITH EYES CLOSED. RESPIRATIONS EVEN AND UNLABORED. O2 SAT 96% RA. NEW BAG OF LR HUNG AND INFUSING. CALL LIGHT IN REACH.
--- NOTE | 2024-10-11 06:06 | NUR ---
PATIENT WOKE TO NAME WHEN THIS RN IN ROOM. VS CHARTED. CELESTINO DRAIN EMPTIED FOR 30ML SANGIUNOUS OUTPUT. PATIENT OOBTC WITH 1 PERSON ASSIST. TOLERATED ACTIVITY WELL WITH MINIMAL COMPLAINT. LEGS ELEVATED IN CHAIR WITH PILLOW SUPPORT. PATIENT CLOSED EYES AND RESTING IN CHAIR WHILE THIS RN IN ROOM. BED LINENS CHANGED. IVF INFUSING. IV ABX HUNG AND INFUSING. CALL LIGHT IN REACH.
--- NOTE | 2024-10-11 07:29 | NUR ---
DR. SCOTT UPDATED ON PATIENT. ORDER RECEIVED FOR CBC AND CELIS CATHETER REMOVAL.
[2024-10-11 08:07] LABS: BASOPHILS 0.2 % (0-2); EOSINOPHILS 0.1 % (0-6); HEMATOCRIT 30.9 % (35.0-50.0); LYMPHOCYTES 23.2 % (24-44); MCH 22.9 (27-36); MCHC 32.4 g/dl (30-36); MCV 70.7 fl (81-99); MONOCYTES 5.4 % (0-12); NEUTROPHILS 71.1 % (39-80); PLATELET COUNT 260 K/uL (140-440); RBC 4.36 M/ul (4.3-5.7); RDW 20.3 (10.5-15.0)
--- NOTE | 2024-10-11 08:30 | NUR ---
Patient up ambulating in room with TERESO Barrett. Pt tolerates clear liquid tray for breakfast, c/o severe ABD pain with movement. Scheduled medications administered and PRN PO dilaudid at this time for 7/10 pain. Pt sitting up to chair. Assessment complete. VSS, on RA, afebrile. A+O, tearful. Lungs clear, HRR, bowel tones hypoactive. Midline incision C/D/I. Ostomy with dark red stoma noted, scant amount bloody output noted. Skip drain WNL, serosanguinous drainage. Pt has generalized edema to extremities. IV ABX and IVF infusing. Education regarding ostomy care provided, patient is receptive at this time.
--- NOTE | 2024-10-11 08:51 | NUR ---
PATIENT UP IN CHAIR FOR BREAKFAST. IN TO DO VITALS AND I&O'S. PATIENT AMBULATED IN ROOM FROM CHAIR TO DOOR AND BACK TO CHAIR, SBA. PATIENT NOW BACK TO SITTING UP IN CHAIR, REQUESTING PAIN MEDS, RN NOTIFIED. CALL LIGHT IN REACH. RN IN ROOM AT THIS TIME.
--- NOTE | 2024-10-11 09:15 | NUR ---
Pt back to bed at this time to rest, made plan for ambulation prior to lunch, patient is agreeable.
--- NOTE | 2024-10-11 10:30 | NUR ---
IV to L AC occluded, not patent, removed. New U/S 2.5in started in L upper arm by Avila sup. Pt requires IV morphine for pain control at this time. Castro cath removed.
--- NOTE | 2024-10-11 12:22 | NUR ---
Patient calling out from room, moaning. c/o severe ABD pain. 2mg morphine administered. IVF SL. IV ABX infusing. Pt up to BR for void. Full liquid tray delivered. Pt consolable with communication. Agreeable to POC.
--- NOTE | 2024-10-11 14:30 | NUR ---
Pt medicated for pain. Pt tearful with ambulation but agreeable to staff encouragement of walking to BR for void.
--- NOTE | 2024-10-11 15:30 | NUR ---
PATIENT UP TO BATHROOM AND BACK TO BED, SBA. CALL LIGHT IN REACH. NO FURTHER NEEDS AT THIS TIME.
--- NOTE | 2024-10-11 16:56 | NUR ---
PATIENT UP TO BATHROOM, SBA. PATIENT THEN AMBULTAED IN CCU VIGIL THEN BACK TO BED, SBA. CALL LIGHT IN REACH. NO FURTHER NEEDS AT THIS TIME.
--- NOTE | 2024-10-11 18:20 | NUR ---
PATIENT UP TO BATHROOM AND BACK TO BED, SBA. VITALS AND I&'S DONE AND CHARTED. PATIENT REQUESTING PAIN MEDS, RN NOTIFIED. CALL LIGHT IN REACH. NO FURTHER NEEDS AT THIS TIME.
--- NOTE | 2024-10-11 18:36 | NUR ---
Scheduled medications administered along with PRN motrin and PO dilaudid. Pt tearful with conversation and requiring consolation. IV ABX infusing. Pt ambulates to BR for small void. States never had f/u after being told her "bladder sling needed fixing". Pt provided with applesauce per request, lights dimmed and room tidied. Call light in reach.
--- NOTE | 2024-10-11 19:42 | NUR ---
REPORT RECEIVED FROM AIME LEW. PATIENT USED CALL LIGHT TO REQUEST ASSISTANCE UP TO BATHROOM. PATIENT VOIDED 300ML CLEAR YELLOW URINE. LEFT AC IV FLUSHED AND PATENT. IV ABX INFUSING. CALL LIGHT AND PERSON ITEMS IN REACH.
--- NOTE | 2024-10-11 21:06 | NUR ---
PATIENT MOVED TO MED SURG UNIT. REPORT GIVEN TO AIME FLOWERS.
--- NOTE | 2024-10-11 21:15 | NUR ---
ARRIVAL IN ROOM 115 FROM CCU TXF. VITALS, ASSESSMENT PERFORMED, ORIENTED TO FLOOR. PT REPORTS PAIN 01/21. CALL LIGHT IN REACH
--- NOTE | 2024-10-11 23:45 | NUR ---
GIVEN PO DILAUDID FOR PAIN 12/22. PT REPORTS PREVIOUS MORPHINE HELPED "A LITTLE" THOUGH STILL SIGNIFICANT. NO OTHER NEEDS FOR NOW CALL LIGHT INREACH
[2024-10-12] VITALS (10 sets, daily range): BP systolic 113–149; BP diastolic 65–84
[2024-10-12] MEDS ORDERED: MEROPENEM 500 MG VIAL ONE ×2 (00:14→05:02)
--- NOTE | 2024-10-12 00:42 | NUR ---
VITALS, GIVEN IV ABX. PT DENIES NEEDS AT THIS TIME, CALL LGIHT IN REACH
--- NOTE | 2024-10-12 01:34 | NUR ---
PT C/O SEVERE PAIN AFTER GETTING UP TO THE BATHROOM. GIVEN DALJIT TYLENOL AND PRN MOTRIN. NO OTHER NEEDS PRESENTLY, CALL LIGHT IN REACH
--- NOTE | 2024-10-12 02:16 | NUR ---
PT CRYING, REPORTS 7/10 PAIN AT DRAIN SITE. GIVEN MORPHINE 2MG, THEN DILAUDID PO A BIT AFTER. PT REPORTS NO IMPROVEMENT FROM MORPHINE. ALSO GIVEN ICE PACK ON DRAIN SITE. DRAIN SITE WELL APPEARING WITH SMALL AMOUNT OF DRAINAGE IN BULB. GUIDED PT THROUGH SKOKOMISH BREATHING. PT STATES SHE "DOESN'T FEEL GOOD, I HURT". PT EVENTUALLY COPING BETTER PAIN SUBSIDES. ASSISTED PT TO LAY ON SIDE. CALL LIGHT IN REACH
--- NOTE | 2024-10-12 04:24 | NUR ---
RESPONDED TO BEEPING IV, DISCONNECTED ABX. ASSISTED PT TO THE BATHROOM, THEN REMOVED MIDLINE DRESSING PER ORDER. YASMEEN INTACT. PT REPORTS PAIN IMPROVED FROM PREVIOUS. CALL LIGHT IN REACH
--- NOTE | 2024-10-12 06:17 | NUR ---
VITALS, AM MEDS. ASSISTED PT TO BATHROOM AND DELIVERED PAIN MEDICATION. PT EXPRESSING ANXIETY OVER GOING HOME WITH COLOSTOMY. VALIDATED FEELING ADN THAT THIS IS A LIFE CHANGE
--- NOTE | 2024-10-12 07:30 | NUR ---
REPORT FROM BETSY SALOMON.
--- NOTE | 2024-10-12 08:00 | NUR ---
pt called to say her iv was wet. assessed and may be leaking a small amt but doesnt appear infiltrated and is unpainful.
--- NOTE | 2024-10-12 08:40 | NUR ---
PATIENT IN BED AT THIS TIME. QUALITY RN ASSISTED PATIENT TO BATHROOM AND THEN BACK TO BED, HOURLY ROUNDS DONE AT THIS TIME. CALL LIGHT WITHIN REACH, NO FURTHER NEEDS.
--- NOTE | 2024-10-12 08:53 | NUR ---
MORNING ASSESSMENT IS COMPLETE. PATIENT GIVEN TYLENOL AND IBUPROFEN FOR 5/10 ABD PAIN. PATIENT AMBULATED TO BR WITH 1PA TO VOID, UP TO CHAIR FOR BREAKFAST. LINENS CHANGED. IV MERRUM IS INFUSING. GUSTAVO DRAIN CARE REVIEWED WITH PATIENT. PATIENT IS BURPING HER OSTOMY, IT IS DRAINING PINK TINGED FLUID. PATIENT IS LEANING BACK IN CHAIR. BP TAKEN, PATIENT REPORTS "FEELING WEIRD" "LIKE A PANIC ATTACK." BP IS 128/70 (84) PULSE IS 76. NO OTHER NEEDS AT THIS TIME.
[2024-10-12] MEDS ORDERED: FAMOTIDINE 20 MG TAB PO SCH (09:00)
--- NOTE | 2024-10-12 09:41 | NUR ---
PATIENT IN CHAIR AT THIS TIME. CRIMINAL RECORDS TECHNICIAN CHARTED VITALS AND I&O'S. CALL LIGHT WITHIN REACH, NO FURTHER NEEDS AT THIS TIME.
--- NOTE | 2024-10-12 10:38 | NUR ---
PATIENT ATE 50% OF BREAKFAST, UP TO BATHROOM TO VOID. PATIENT IS UP TO CHAIR, SALINE LOCKED. PATIENT GIVEN 4MG OF PO DILAUDID FOR 6/10 ABDOMINAL PAIN. PATIENT IS STEADY ON HER FEET TO BATHROOM, PATIENT IS PLANNING TO AMBULATE IN HALLWAY AFTER LUNCH. NO OTHER NEEDS AT THIS TIME.
--- NOTE | 2024-10-12 12:41 | NUR ---
PATIENT REPORTS ABD PAIN IS 5/10 OR LESS, UP TO BATHROOM TO VOID. IV MERRUM INFUSING FOR 3 HOURS. PATIENT ATE 50% OF LUNCH. PLAN TO HAVE PATIENT EMPTY GUSTAVO HERSELF AT 2PM.
--- NOTE | 2024-10-12 13:09 | NUR ---
PATIENT IN BED AT THIS TIME. LETTER OF CREDIT CLERK CHARTED HOURLY ROUNDS. CALL LIGHT WITHIN REACH, NO FURTHER NEEDS.
--- NOTE | 2024-10-12 13:23 | NUR ---
UR CLINICAL REVIEW: AVRIL (ENCOUNTER INACTIVE), MEETS INPT FOR UPPER GI BLEED CT POSITIVE FOR GAS, PNEUMOPERITONITIS AND LIKELY GASTRIC ULCER PERFORATION SURGICAL INTERVENTION NEEDED, LIQUID DIET, IV ANTIBIOTICS, IV ANALGESICS BASIC DMAP ([place] MEDICAID) INPT 10/09/2024 @ 2305 ORDER MATCHES REG NO AUTH REQUIRED PER MEDICAID RULE PLAN TO DC HOME WHEN MEDICALLY STABLE. 10/14/2024
--- NOTE | 2024-10-12 14:00 | NUR ---
Spoke with Sherrill. She cont. to be homeless. Stays at a friends in their basement on the floor. Per family, area is dirty and has garbage. Pt with a new colostomy. Pt is tearful when I visited and concerned about living with a "shit bag". Pt tearful and cries throughout our visit. Pt was homeless last admission, but was able to get assist for a hotel through [employer]. She cont. to use multiple drugs and was + on admission. Pts Aunt Sera called and is requesting pt go to a SNF on dc. Pt initial did not agree, but did agree if it was a short stay. We discussed pt would have to have a qualifing need. I will request PT/OT order from Dr. Chung and speak with him when he comes in. Chart ready to send to [facility] for ostomy supplies. Pt does say she was getting ready to move into her uncles house that is now empty. It needs to be cleaned out and have some remodeling. Family will be here this weekend, I suggested they might be able to help her. Pt is still not sure where she wants to go on dc. Will discuss with Dr. Chung.
--- NOTE | 2024-10-12 14:29 | NUR ---
PATIENT GIVEN SCHEDULED TYLENOL, CONTINUES TO RATE ABD PAIN 5/10 AND SAYS, "ITS NOT TOO BAD."
--- NOTE | 2024-10-12 14:32 | NUR ---
VISITED DURING SPIRITUAL PRAYER ROUNDS. PT LYING IN BED, TEARFULLY EMOTIONAL, STATES SITUATION FEELS OVERWHELMING, MENTIONED "POOP BAG." FACULTY ADMINISTRATOR PROVIDED SUPPORTIVE PRESENCE, HOSPITALITY, PRAYER, ANXIETY CONTAINMENT, ANTICIPATORY GUIDANCE, ENCOURAGED FOCUS ON PRESENT, FACILITATED INTERACTION WITH THERAPY ANIMAL. PT APPEARED CALMER, SMILING THOUGH STILL TEARFUL.
--- NOTE | 2024-10-12 14:48 | NUR ---
PATIENT SITTING UP IN BED AT THIS TIME TALKING ON PHONE. VITALS AND I&O'S DONE AND CHARTED. VISITOR NOW IN ROOM. CALL LIGHT IN REACH. NO FURTHER NEEDS AT THIS TIME.
--- NOTE | 2024-10-12 15:38 | NUR ---
PATIENT IS SITTING UP IN BED TO EAT SNACK. PATIENT IS PLANNING ON AMBULATING IN HALLWAY AT THIS TIME.
--- NOTE | 2024-10-12 16:10 | NUR ---
DR. SCOTT IN TO SEE PATIENT. LEFT OSTOMY APPLIANCE CHANGED, PATIENT AND FRIEND WATCHING APPLIANCE CHANGE QUESTIONS AND ANSWERS. PATIENT UP TO AMBULATE IN HALLWAY ONE LAP WITH FRIEND.
--- NOTE | 2024-10-12 18:12 | NUR ---
IV MERROPENUM INFUSING FOR 3 HOURS. PATIENT IS SLEEPING AFTER DINNER. PATIENT TOLERATED 50% OF REGULAR MEAL.
--- NOTE | 2024-10-12 18:34 | NUR ---
PATIENT IN BED RESTIG WITH EYES CLOSED, VISITOR IN ROOM. VITALS AND I&O'S DONE AND CHARTED. CALL LIGHT IN REACH. NO FURTHER NEEDS AT THIS TIME.
--- NOTE | 2024-10-12 19:29 | NUR ---
RECEIVED REPORT. PT RESTING IN BED WITH EYES CLOSED, RISE AND FALL OF CHEST NOTED. SIGNIFICANT OTHER IN ROOM RESTING ON COUCH. [facility]
--- NOTE | 2024-10-12 20:56 | NUR ---
VITALS, ASSESSMENT, EVENING MEDS. PT WAKES UP WITH 7/10 PAIN. GIVEN PO DILAUDID AND SCHEDULED TYLENOL. SUPPORTIVE BOYFRIEND IN ROOM. COLOSTOMY STOMA PINKER TODAY, SMALL AMOUNTS OF GAS. CALL LIGHT IN REACH
--- NOTE | 2024-10-12 21:42 | NUR ---
RESPONDED TO BEEPING IV. PT REPORTS PAIN IMPROVED FROM EARLIER. SIGNIFICANT OTHER NO LONGER AT BEDSIDE, STATES HE WILL BE BACK IN THE MORNING. PT WATCHING TV IN BED, NO OTHER NEEDS PRESENTLY. CALL LIGHT INREACH
--- NOTE | 2024-10-12 22:24 | NUR ---
PT AMBULATED IN HALLWAY 3 TIMES, THEN REQUESTED TO TAKE A SHOWER. ASSISTED PT WITH SHOWER SETUP INCLUDING WRAPPING IV AND GUSTAVO DRAIN AND PROVIDING SHOWER CHAIR. REPORTS PAIN IMPROVED FROM EARLIER. PT IN SHOWER, DEMONSTRATED SHOWER SAFETY CORD IF NEEDED.
--- NOTE | 2024-10-12 23:11 | NUR ---
PT UP IN HALLWAY AMBULATING. GIVEN PRN MOTRIN FOR SORENESS. PT EXPRESSES FEELING ANXIOUS, IT FEELS LIKE THE REALITY OF HER NEW COLOSTOMY IS 'HITTING HER'. 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 LISTENED, ADN VALIDATED FEELINGS OF OVERWHELM AND WORRY. IV MADELIN INITIATED. CALL LIGHT IN REACH
[2024-10-13] VITALS (11 sets, daily range): BP systolic 117–130; BP diastolic 54–85
--- NOTE | 2024-10-13 00:39 | NUR ---
RESPONDED TO BEEPING IV. PT STRAIGHTENED ARM. CALL LIGHT IN REACH
--- NOTE | 2024-10-13 02:48 | NUR ---
PT UP TO BATHROOM. NO NEEDS PRESENTLY, CALL LIGHT IN REACH
--- NOTE | 2024-10-13 04:16 | NUR ---
RESPONDED TO BEEPING IV, ADJUSTED ARM TO ALLOW PATENCY. ASSISTED TO BATHROOM AND GIVEN DILAUDID 5MG FOR 7/10 PAIN. NO OTEHR NEEDS, CALL LIGHT IN REACH
[2024-10-13 05:58] LABS: BASOPHILS 0.7 % (0-2); EOSINOPHILS 4.7 % (0-6); HEMATOCRIT 30.8 % (35.0-50.0); LYMPHOCYTES 35.6 % (24-44); MCH 23.2 (27-36); MCHC 32.6 g/dl (30-36); MCV 71.1 fl (81-99); MONOCYTES 5.3 % (0-12); NEUTROPHILS 53.7 % (39-80); PLATELET COUNT 300 K/uL (140-440); RBC 4.34 M/ul (4.3-5.7); RDW 20.2 (10.5-15.0)
--- NOTE | 2024-10-13 06:06 | NUR ---
A&OX4, PT REPORTS FEELING OVERWHELMED, AND BECAME TEARY A FEW TIMES ON SHIFT. PT AMBULATED INDEPENDENTLY IN HALLWAY SEVERAL LAPS. PT ALSO SHOWERED INDEPENDENTLY. PAIN MODERATLEY WELL MANAGED WITH PRN DILAUDID 4MG AND PRN MOTRIN. COLOSTOMY WITH SMALL AMOUNT OF GAS, NO SOLID OUTPUT YET. STOMA APPEARS PINK AND COLLINS. MIDLINE INCISION C/D/I. PT TOLERATING GENERAL DIET, EXCEPT SOMEWHAT LIMITED APPETITE. PLAN TO CONTINUE AMBULATION AND CONTINUE PAIN MANAGEMENT.
[2024-10-13 06:08] LABS: ANION GAP 11.4 (7-21); BUN/CREATININE RATIO 12.24 (6.0-28.6); CALCIUM 8.9 mg/dL (8.5-10.1); CREATININE, SERUM 0.49 mg/dL (0.55-1.02); POTASSIUM 3.4 mmol/L (3.5-5.1)
--- NOTE | 2024-10-13 07:48 | NUR ---
Hourly RAounding. Board has been updated and call light placed within reach, no request from patient at this time
--- NOTE | 2024-10-13 08:30 | NUR ---
Patient resting in bed, easily wakes to verbal stimuli. Patient is alert and oriented x4, no acute distress. Patient intermittently emotional regarding her abdominal scarring per her report. Abdominal incision has megan, open to room air. GUSTAVO to rlq, small amount of serosang drainage in bulb. Stoma is beefy red, no output noted, patient reports she is passing flatus.
[2024-10-13] MEDS ORDERED: MEROPENEM 500 MG in SODIUM CHLORIDE 0.9% 100 ML IV SCH (09:00)
--- NOTE | 2024-10-13 09:14 | NUR ---
Admin dilaudid 4mg po at this time per pt request for reported 5/10 incisional pain.
--- NOTE | 2024-10-13 09:39 | NUR ---
Hourly Rounding. Patient says shes tired today, and that she plans on ambulating today in the hallways. No request from patient at this time.
--- NOTE | 2024-10-13 10:41 | NUR ---
Admin morphine 4mg iv at this time for reports of 7/10 incisional pain. IV abx continue to infuse. Patient denies further needs, call light within reach. Patient ambulated in hallway, x2 laps.
--- NOTE | 2024-10-13 12:55 | NUR ---
Patient sitting up in chair, alert/oriented x3, no acute distress. Patient just ambulated in hallway, tolerated well. Patient denies needs at this time, personal supplies and call light within reach.
--- NOTE | 2024-10-13 14:00 | NUR ---
Spoke with Tamela. It remains unclear where she wants to go on DC. I spoke with Dr. Chung and she is not ready at this time for dc. Chart was sent to Sona from [facility]. I have not received a reply. Orders were sent to [facility] for pts ostomy supplies. They did call and notify her today. They will not send supplies until she leaves the hospital. I asked her when they call her back ti [place] 24 [place]. We will send a few days of supplies with her. I will call them on dc and let them know. Pt is having supplies shipped to the [facility] as she has a mail box there.
[2024-10-13] MEDS ORDERED: MAGNESIUM HYDROXIDE 30 ML UDC PO SCH (14:15)
--- NOTE | 2024-10-13 14:53 | NUR ---
PATIENT GIVEN SCHEDULED TYLENOL FOR 4/10 ABD PAIN. PATIENT GIVEN SCHEDULED MOM.
--- NOTE | 2024-10-13 15:00 | NUR ---
Admin mortrin 600mg po for 5/10 abdominal pain. Patient sitting up in chair eating a snack. No further needs, call light within reach.
--- NOTE | 2024-10-13 15:29 | NUR ---
Hourly rounding. Patient is ambulating in the moreno. She appears to be in a good mood. She says she feels gassy sometimes, nurse has been notified. No request from patient at this time
--- NOTE | 2024-10-13 19:31 | NUR ---
REPORT RECIEVED FROM DAY SHIFT RN. PT LYING IN BED RESTING WITH EYES CLOSED. RESPIRATIONS EVEN. CALL LIGHT IN REACH.
--- NOTE | 2024-10-13 21:18 | NUR ---
PATIENT TOOK SHOWER INDEPENTLY. PATIENT IS SITTING UP IN THE CHAIR WHEN THIS CARTON FILLING MACHINE OPERATOR LEFT THE ROOM. BED LINEN CHANGED. V/S AND I&O'S COMPLETED. BATHROOM WIPED DRY AFTER PATIENT'S SHOWERED. USED BLANKETS AND GARBAGE PICKED UP. ROOM TIDIED.
--- NOTE | 2024-10-13 21:31 | NUR ---
EVENING ASSESSMENT COMPLETE. SCHEDULED MEDS ADMIN PER EMAR. IV ABX INFUSING WNL. PT REPORTS ABD PAIN /10. SCHEDULED TYLENOL GIVEN. NO C/O NAUSEA. BOWEL TONES ACTIVE. ABD SOFT. MIDLINE INCISION WELL APPROXIMATED WITH YASMEEN INTACT. NO REDNESS OR DRAINAGE NOTED. GUSTAVO RLQ WITH SEROSANG DRAINAGE. OSTOMY WITH NO DRAINAGE. PT REPORTS GAS IN OSTOMY BAG. SNACK PROVIDED. PT DENIES QUESTIONS OR CONCERNS. CALL LIGHT IN REACH.
--- NOTE | 2024-10-13 23:39 | NUR ---
PT RESTING IN BED WITH EYES CLOSED. RESPIRATIONS EVEN. CALL LIGHT IN REACH.
[2024-10-14] VITALS (7 sets, daily range): BP systolic 120–140; BP diastolic 68–84
--- NOTE | 2024-10-14 02:07 | NUR ---
PT UP AMB VIGIL INDEPENDENTLY. GAIT STEADY. BACK TO ROOM. REPORTS GUSTAVO INCISIONAL SITE PAIN 4/10 AND OCCASIONAL CRAMPING PAIN. PRN FOR PAIN ADMIN PER EMAR. ICE PACK PROVIDED FOR GUSTAVO SITE. ABD ASSESSMENT UNCHANGED. NO FURTHER NEEDS AT THIS TIME. CALL LIGHT IN REACH.
--- NOTE | 2024-10-14 03:25 | NUR ---
PT AMB VIGIL INDEPENDENTLY. EDUARDO WELL. GAIT STEADY.
--- NOTE | 2024-10-14 06:53 | NUR ---
PT REPORTS ABD PAIN 09/21. PRN FOR PAIN ADMIN PER EMAR. PT REPORTS FEELINGS OF URINARY RETENTION. BLADDER SCAN DONE WITH NO RETENTION NOTED. NO FURTHER NEEDS AT THIS TIME. CALL LIGHT IN REACH.
--- NOTE | 2024-10-14 07:46 | NUR ---
Hourly Rounding. Board has been updated and call light has beenplaced within reach. No request from patient at this time
--- NOTE | 2024-10-14 08:59 | NUR ---
Admin dilaudid 4mg po for reports of 5/10 abdmominal pain.
--- NOTE | 2024-10-14 09:56 | NUR ---
UR CONCURRENT REVIEW: AVRIL(ENCOUNTER INACTIVE)- DOES NOT MEET STAGE 2 GL FOR DISCHARGE DUE TO NO OUTPUT VIA COLOSTOMY WITH NEED FOR MONITORING ODS [facility] INPT 10/09/24 @ 2456 ORDER MATCHES REG DISCHARGE TO HOME WHEN STABLE 10/16/24
--- NOTE | 2024-10-14 10:10 | NUR ---
Spoke with Sherrill. No concerns. Cont. to wait to hear from [facility] if they will accept this pt. Sherrill vascillat between placement and going home on dc.
--- NOTE | 2024-10-14 11:03 | NUR ---
Patient ambulating in hallway, even gait, alec well.
--- NOTE | 2024-10-14 11:07 | NUR ---
Hourly Rounding. Patient is walking laps around the nurse station. She reports being gassy but no report of having a Bowel Movement. No request from patient at this time
--- NOTE | 2024-10-14 12:38 | NUR ---
Patient ambulating with her sister, tolerating well.
--- NOTE | 2024-10-14 12:39 | NUR ---
Patient awake, alert and oriented x4, no acute distress. Patient walking frequently. Abdominal incision has megan, open to room air. GUSTAVO intact/patent to RLQ, small amount of serosang drainage noted in closed bulb. Stoma to LLQ is beefy red, no notable outpt, pt passing flatus. Active bowel tones noted x4 quadrants. Patient tolerating diet well.
--- NOTE | 2024-10-14 14:37 | NUR ---
Dr. Chung at bedside to see patient. Scheduled abx started at this time. Patient reports 5/10 abdominal pain, admin dilaudid 4mg po and ibuprofen 600mg po with a snack.
[2024-10-14] MEDS ORDERED: FLUOXETINE HCL 20 MG CAP PO SCH (14:46)
[2024-10-14] MEDS ORDERED: hydrOXYzine pamoate 25 MG CAP PO PRN (15:00)
--- NOTE | 2024-10-14 15:18 | NUR ---
Vistaril 25mg po admin at this time for anxiety.
--- NOTE | 2024-10-14 15:52 | NUR ---
Spoke with Sherrill. Updated I received a response from Bisi from [facility]. They are unable to accept her due to her drug use. Pt is tearful, she does state she spoke with Dr. Chung and he started her on a antidepressant. We discussed a plan for when pt discharges. She does not want to try another SNF. She plans on returning to where she has been staying. She states she will need to get the physical address. She does agree to for education for colostomy care.
--- NOTE | 2024-10-14 16:39 | NUR ---
PATIENT WAS IN HER BED AT THIS TIME, WAS HAVING MAJOR STOMACH/OSTOMY PAIN. TERESO NOTIFIED THE RN THU WHO HAD JUST GIVEN THE PATIENT HER PAIN MEDS. SHE SUGGESTED A HOT PACK FOR THE PAIN WHICH I GOT FOR THE PATIENT AND SEEMS TO BE HELPING. TOOLROOM MACHINIST ALSO GOT FRESH ICE WATER AND BLANKET FOR PATIENT. CALL LIGHT WITH IN REACH AND NOTHING ELSE NEEDED AT THIS TIME.
--- NOTE | 2024-10-14 18:28 | NUR ---
PATIENT IN BED AT THIS TIME. MANUAL ARTS TEACHER CHARTED VITALS AND I&O'S. CALL LIGHT WITHIN REACH, NO FURTHER NEEDS AT THIS TIME.
--- NOTE | 2024-10-14 19:29 | NUR ---
REPORT RECEIVED FROM DAYSHIFT RN. PATIENT RESTING WITH EYES CLOSED, RESP EVEN AND UNLABORED. PATIENT LAYING ON LEFT SIDE, NO NEEDS IDENTIFIED, CALL LIGHT IN REACH.
--- NOTE | 2024-10-14 19:52 | NUR ---
aunt zane boyer [phone] called and asked for pt update, pt provided verbal okay w/ giving update to aunt zane. update provided. primary rn chang and becky both made aware.
--- NOTE | 2024-10-14 19:54 | NUR ---
PT C/O ABD PAIN AT INCISION 10/22. MEDICATED W/ PRN PO DILAUDID AND ROUTINE TYLENOL PER EMAR. NO OTHER NEEDS AT THIS TIME.
--- NOTE | 2024-10-14 20:31 | NUR ---
SCHEDULED MED ADMINISTERED, INTERIOR WALL ASSEMBLER AND AIME VILLANUEVA IN ROOM TO ASSIST PATIENT UP TO SHOWER. ASSESSMENT COMPLETED, VS OBTAINED AND RECORDED.
--- NOTE | 2024-10-14 20:40 | NUR ---
PT WANTED A SHOWER. RAYON CONER AND RN SET UP PT FOR SHOWER AND COVERED IV AND GUSTAVO DRAIN SITES. PT ABLE TO SHOWER INDEPENDENTLY. BED LINENS CHANGED AND PT GIVNE CLEAN GOWN. PT STATES NO FURTHER NEEDS AT THIS TIME AND IS BACK IN BED. CALL LIGHT WITHIN REACH.
--- NOTE | 2024-10-14 22:00 | NUR ---
PATIENT REPORTS LEAKING FROM OSTOMY. OSTOMY DRESSING CHANGED, SKIN PROTECTANT APPLIED, PATIENT TOLERATED WELL. NO FURTHER NEEDS IDENTIFIED, CALL LIGHT IN REACH.
--- NOTE | 2024-10-14 23:05 | NUR ---
PATIENT RESTING ON RIGHT SIDE, REPORTS PAIN HAS BEEN CONSISTENT. GIVEN PRN MEDICATION FOR ANXIETY PER REQUEST. NO FURTHER NEEDS IDENTIFIED, CALL LIGHT IN REACH.
[2024-10-15] VITALS (10 sets, daily range): BP systolic 101–145; BP diastolic 58–95
--- NOTE | 2024-10-15 01:25 | NUR ---
charles at front desk manager called rn station and informed this rn that friend zuleika ([phone]) called and has some "restorationist stuff" to bring to pt but cannot leave it with pt as it is cermony related. friend is a reported heavy truck mechanic and just came back into town. primary rn made aware and rounded on pt, pt currently sleeping in bed-friend updated by front desk manager and plans to let pt continue to sleep and return with belongings later this morning after breakfast. primary rn made aware.
--- NOTE | 2024-10-15 02:00 | NUR ---
MIDLINE ABD SURGICAL SITE WNL, WELL APPROXIMATED WITH NO DRAINAGE. OSTOMY WNL, NO CHANGES NOTED. GUSTAVO DRAIN SITE DRESSING C/D/I. NO CHANGES NOTED.
--- NOTE | 2024-10-15 02:04 | NUR ---
SCHEDULED MEDS ADMIN PER ORDER. PATIENT PROVIDED WITH WARM PACK, AND WARM BLANKETS. DENIES OTHER NEEDS, CALL LIGHT IN REACH.
--- NOTE | 2024-10-15 04:09 | NUR ---
PATIENT RESTING WITH EYES CLOSED, RESP EVEN AND UNLABORED. NO NEEDS IDENTIFIED, CALL LIGHT IN REACH.
--- NOTE | 2024-10-15 05:32 | NUR ---
FEDERAL APPELLATE LAW CLERK OBTAINED VITALS AND I&O. PT STATES NO NEEDS AT THIS TIME. CALL LIGHT WITHIN REACH.
--- NOTE | 2024-10-15 06:40 | NUR ---
GUSTAVO DRAIN EMPTIED. DRESSING FELL OFF, NEW DRESSING APPLIED. SMALL BM NOTED IN OSTOMY BAG. PATIENT CONTINUES TO REST, DENIES ANY NEEDS. CALL LIGHT IN REACH.
--- NOTE | 2024-10-15 07:34 | NUR ---
MORNING REPORT RECIEVED FROM AIME MENDEZ. PT LAYING IN BED WITH EYES CLOSED CHEST RISE EQUAL BILAT. DURING MORNING REPORT PT REPORTED GAS PAIN. PT DID HAVE SMALL OUTPUT IN OSTOMY. PT HAS CALL LIGHT IN REACH.
--- NOTE | 2024-10-15 07:50 | NUR ---
PT RESTING IN BED. RR EVEN AND UNLABORED. PT PROVIDED WARM WASH RAG. PT PROVIDED ICE WATER, APPLE JUICE, AND HEAT PACK PER PT REQ. PT STATES SHE WILL GET UP TO CHAIR INDEP WHEN READY. PT STARTS TO MOAN IN PAIN. RN NOTIFIED. CALL LIGHT IN REACH.
--- NOTE | 2024-10-15 09:20 | NUR ---
pt resting in bed. vitals and i's and o's complete. pt blinds opened. pt states she will get up in a little to eat breakfast. pt provided warm pack and blanket per request. pt ostomy checked and there is not sufficent stool to empty ostomy. pt denies needs at this time. call light in reach
--- NOTE | 2024-10-15 09:33 | PATH ---
[facility] [address] [facility] [place], [place] [address] Signed SPECIMEN(S): A SIGMOID COLON SPECIMEN SOURCE: A. SIGMOID COLON CLINICAL HISTORY: Abdominal pain, possible perforation. Divertic FINAL PATHOLOGIC DIAGNOSIS: Sigmoid colon, segmental resection: - Histologically unremarkable colonic mucosa and surrounding muscular layers and serosa. - No definitive diverticula identified in the sections examined. - Negative for inflammation, ischemia, dysplasia or malignancy. - Viable margins of resection. NA MICROSCOPIC EXAMINATION: Histologic sections of all submitted blocks are examined by light microscopy. These findings, together with the gross examination, support the pathologic diagnosis. GROSS DESCRIPTION: The specimen, labeled and designated "MegantoribioEllen, sigmoid colon per requisition," is received in formalin and consists of a 25.6 cm in length by 7 cm in circumference segment of previously open unoriented colon with moderate amount of attached pericolonic fat. The serosal surface is esparza-pink and smooth. The mucosa is esparza-pink with intact mucosal folds. There are no apparent diverticuli or areas of perforation. There are no masses or polyps. The pericolonic fat is yellow lobulated and unremarkable with no apparent abscess formation. Copy Messenger sections are submitted as follows: 10/14/2024: A second look over the specimen reveals a possible diverticuli present. There is no perforation. A section is submitted in cassette A4 per Dr. Rebolledo's request. Cassette Summary: (A1) unoriented margin #1 (A2) unoriented margin #2 (A3) mucosa AA (under the direct supervision of a pathologist) PATIENT NAME: SHAMA MERLOS PATHOLOGY DATE OF : 80 REPORT #: [id number] PHYSICIAN: GREGORIO COOK PCP: RON GONZALEZ MD REPORT IS CONFIDENTIAL AND NOT TO BE RELEASED WITHOUT AUTHORIZATION [facility] [address] [place], [place] [address] Signed The Gross Description was prepared using a voice recognition system. The report was reviewed for accuracy; however, sound-alike word errors, addition and/or deletions may occur. If there is any question about this report, please contact Client Services. ADDITIONAL NOTES: Immunohistochemical and/or in situ hybridization studies if performed in this case included appropriate positive controls that reacted as expected. This test was developed and its performance characteristics determined by [email or web address]. It has not been cleared or approved by the U.S. Food and Drug Administration. The FDA has determined that such clearance or approval is not necessary. This test is used for clinical purposes. It should not be regarded as investigational or for research. [email or web address] is certified under the Clinical Laboratory Improvement Amendments of 1988 (CLIA) as qualified to perform high complexity clinical laboratory testing. PERFORMING LABORATORY: Technical component was performed by [email or web address], [address] [place] [id number] (CLIA# [id number]). Professional interpretation was performed by [facility] - [facility], [address] [place] [address] (CLIA#: [id number]). Diagnostician: Michael Rebolledo MD Pathologist Electronically Signed 10/15/2024 Copies: ~ PATIENT NAME: SHAMA MERLOS PATHOLOGY DATE OF : 80 REPORT #: [id number] PHYSICIAN: GREGORIO PATHOLOGY PCP: RON GONZALEZ MD REPORT IS CONFIDENTIAL AND NOT TO BE RELEASED WITHOUT AUTHORIZATION
--- NOTE | 2024-10-15 09:50 | NUR ---
PT SEEN BY MD SCOTT. PT SITTING UP IN CHAIR, PT GUSTAVO DRAIN IN PLACE WITH DRESSING CDI, OSTOMY HAS SMALL ABOUT OF BROWN OUTPUT. PT DOES STATE SHE IS ANXIOUS AND WAS GIVEN PRN VISTRIL. PT WALKED A LAP AROUND UNIT AND RETURNED TO BED. PT HAS NO OTHER CONCERNS AT THIS TIME. CALL LIGHT IN REACH.
--- NOTE | 2024-10-15 09:59 | NUR ---
PT AMBULATING IN HALLS AROUND NURSES STATION. PT HAS A STEADY GAIT AND IS AMBULATING INDEPENDTLY WELL.
--- NOTE | 2024-10-15 10:49 | NUR ---
PT NOT AVAILABLE FOR VISIT. PROVIDED PRAYER.
--- NOTE | 2024-10-15 11:10 | NUR ---
pt resting in bed. meal tray cleared. pt still requesting to be in bed. pt denies any needs at this time. call light in reach.
--- NOTE | 2024-10-15 11:11 | NUR ---
WAS ABLE TO OBTAIN HOME ADDRESS FOR PATIENT. WILL NEED [facility] AT TIME OF DISCHARGE. [address]ESS [id number] [facility]. NO FUTHER CM NEEDS AT THIS TIME.
--- NOTE | 2024-10-15 11:47 | NUR ---
A HOT PACK WAS APPLIED TO PATIENT'S ABDOMEN AND A WARM BLANKET WAS GIVEN. CALL LIGHT AND PERSONAL ITEMS ARE WITHIN REACH. FRIEND IN THE ROOM VISITING. OSTOMY BAG WAS CHECKED AND HAD VERY LITTLE OUTPUT.
--- NOTE | 2024-10-15 13:00 | NUR ---
PT IS LAYING IN BED WITH EYES CLOSED CHEST RISE EQUAL BILAT. PT HAS CALL LIGHT IN REACH.
--- NOTE | 2024-10-15 14:08 | NUR ---
PT GIVEN TYLONOL, PT IS STILL EMOTIONAL AND AXIOUS. PT STATES SHE IS GOING TO WALK A LAP. PT HAS NO OTHER COCERNS AT THIS TIME.
--- NOTE | 2024-10-15 15:13 | NUR ---
PT LAYING IN BED, PT ANXIETY HAS DECREASED AFTER GOING ON A WALK AROUND THE FLOOR. PT HAS NO PAIN AT THIS TIME AND HAS HAD SMALL AMOUNTS OF NEW OUTPUT IN OSTOMY BAG. PT HAS CALL LIGHT IN REACH.
--- NOTE | 2024-10-15 16:18 | NUR ---
PT AMBULATING THE HALLS. PT DID HAS A SMALL AMOUNT OF EMESIS, DUE TO ANXIETY WHEN FAMILY SHOWED UP. PT WAS RETURNED TO ROOM VIA WHEEL CHAIR AND DENIED ANY FEELING OF NAUSEA AFTER EMESIS. PT RETURNED TO AMBULATING THE HALLS AFTER FAMILY LEFT AND DENIES NAUSEA. PT HAS NO PAIN BUT REQUESTED SOMETHING FOR ANXIETY. PT HAS NO OTHER CONCERNS AT THIS TIME.
--- NOTE | 2024-10-15 17:37 | NUR ---
PT CONTINUES TO AMBULATE THE HALLS. PT IS CURRENTLY SITTING AT EDGE OF BED IN ROOM WITH NO ANXIETY AT THIS TIME. PT GUSTAVO DRAIN INTACT AND IN PLACE. PT HAS NO CONCERNS AT THIS TIME CALL LIGHT IN REACH.
--- NOTE | 2024-10-15 19:30 | NUR ---
PATIENT RESTING IN BED, TALKING WITH FAMILY. DENIES NEEDS, CALL LIGHT IN REACH.
--- NOTE | 2024-10-15 20:49 | NUR ---
TIME STUDY STATISTICIAN OBTAINED VITALS AND I&O. ICE WATER REFILLED AND PT STATES NO FURTHER NEEDS AT THIS TIME. CALL LIGHT WITHIN REACH.
--- NOTE | 2024-10-15 21:25 | NUR ---
ASSESSMENT COMPLETED, OSTOMY DRESSING NOT FLESH WITH SKIN, DRESSING CHANGED, SKIN CLEANED. BM NOTED IN BAG. GUSTAVO DRAIN EMPTIED. PATIENT DECLINES NEEDS. CALL LIGHT IN REACH.
--- NOTE | 2024-10-15 23:23 | NUR ---
PATIENT RESTING WITH EYES CLOSED, RESP EVEN AND UNLABORED. NO NEEDS IDENTIFIED, CALL LIGHT IN REACH.
--- NOTE | 2024-10-16 00:19 | NUR ---
PATIENT RESTING WITH EYES CLOSED, RESP EVEN AND UNLABORED. NO NEEDS IDENTIFIED. CALL LIGHT IN REACH.
--- NOTE | 2024-10-16 02:35 | NUR ---
IN RM TO GIVE pt SCHEDULED MEDS. pt WAS UP WALKING LAPS IN THE HALLWAY. pt DENIES ANY OTHER NEEDS AT THIS TIME. CALL LIGHT WITHIN REACH.
--- NOTE | 2024-10-16 03:22 | NUR ---
PATIENT REQUESTED PRN MEDICATION FOR ANXIETY, ADMIN PER REQUEST. PATIENT REQUESTED BATHING WIPES, PROVIDED PER REQUEST. DENIES NEED OF ANY ASSISTANCE. PRIOR TO THIS, PATIENT WALKED MULTIPLE LAPS IN THE HALLWAY WITH EVEN GAIT. FRESH WATER PROVIDED. DENIES OTHER NEEDS CALL LIGHT IN REACH
--- NOTE | 2024-10-16 03:25 | NUR ---
COLOSTOMY DRESSING INTACT, GUSTAVO DRAIN REMAINS IN PLACE, BOTH WNL. GAS NOTED IN COLOSTOMY BAG.
[2024-10-16 06:05] VITALS: BP 118/74
--- NOTE | 2024-10-16 06:09 | NUR ---
COLLECTION SYSTEMS ADMINISTRATOR OBTAINED VITALS AND I&O. PT UP TO AMBULATE HALLWAY. PT STATES NO FURTHER NEEDS AT THIS TIME. CALL LIGHT WITHIN REACH.
--- NOTE | 2024-10-16 06:15 | NUR ---
PATIENT WALKING LAPS AROUND UNIT WITH EVEN GAIT. DENIES ANY NEEDS
[2024-10-16 06:16] VITALS: BP 118/74
--- NOTE | 2024-10-16 07:38 | NUR ---
Patient ambulating in the hallway, tolerating well. Patient denies needs.
--- NOTE | 2024-10-16 08:54 | NUR ---
PATIENT HAS BEEN UP AND AMBULATING THREE TIMES [facility] SHIFT CHANGE. THEY REPORTED FEELING GOOD AND IN BRIGHT SPIRITS. REQUESTED APPLE SAUCE AND ORANGE JUICE. CALL LIGHT AND PERSONAL ITEMS ARE WITHIN REACH. NO OTHER CARES WERE REQUESTED.
--- NOTE | 2024-10-16 09:00 | NUR ---
INTO SEE PATIENT. SHE SAID SHE IS FEELING MUCH BETTER. SHE IS GOING TO STAY WITH HER AUNT YOAN FOR AWHILE DURING HER RECOVERY. SHE STILL NEEDS A RIDE AT TIME OF DISCHARGE. NO FUTHER CM NEEDS AT THIS TIME.
[2024-10-16 09:17] VITALS: BP 125/70
--- NOTE | 2024-10-16 09:40 | NUR ---
VISITED WITH PT WHILE WALKING IN HALLWAY. PT APPEARED TO BE IN OVERALL GOOD SPIRITS, MUCH IMPROVED FROM PREVIOUS VISIT, TALKED OF HERNAN AT PROSPECT OF DISCHARGE, ABILITY TO GET OUT OF BED. PATTERNMAKER APPRENTICE WOOD PROVIDED SUPPORTIVE PRESENCE, PRAYER.
[2024-10-16 09:58] VITALS: BP 125/70
--- NOTE | 2024-10-16 10:00 | NUR ---
Patient reports tolerating diet well, no nausea. Abdominal incision is closed, well approx with megan. GUSTAVO to RLQ-scant serosang drainage noted. Beefy red stoma noted, no stool in bag-Patient reports self burping bag. No current needs, personal supplies and call light within reach.
[2024-10-16] MEDS ORDERED: IBUPROFEN600 MG PO (13:11)
[2024-10-16] MEDS ORDERED: ACETAMINOPHEN500 MG PO (13:11)
[2024-10-16] MEDS ORDERED: HYDROXYZINE PAM25 MG PO (13:12)
[2024-10-16] MEDS ORDERED: FLUOXETINE HCL20 MG PO (13:12)
[2024-10-16] MEDS ORDERED: HEALTHYLAX17 GM PO (13:13)
[2024-10-16] MEDS ORDERED: FAMOTIDINE20 MG PO (13:13)
[2024-10-16] MEDS ORDERED: MILK OF MA400 MG/5 M PO (13:13)
--- NOTE | 2024-10-16 13:24 | NUR ---
VISTARIL 25MG PO ADMIN FOR REPORTS OF ANXIETY.
--- NOTE | 2024-10-18 12:32 | DS ---
[facility] [address] [place], [place] [address] Signed ADMISSION DATE: 10/09/2024 DISCHARGE DATE: 10/16/2024 REASON FOR ADMISSION: Free intraperitoneal air, perforated viscus (ultimately found to be perforated stercoral colitis). HISTORY OF PRESENT ILLNESS: This 43-year-old Malaysian woman is undergoing substance abuse issues including use of fentanyl and occasional use of marijuana. In the preceding 48 hours, she had rather significant pain in the epigastric area and presented to the emergency room and thoroughly evaluated by Dr. Avelar. This included a CT scan of the abdomen showing moderate volume of pneumoperitoneum mostly in the right upper abdomen. There was some gas and thickening of the gastric wall suggesting possible gastric ulcer perforation. There is no evidence of diverticulosis per se. Surgical history does include hysterectomy and now pelvic relaxation issues with probable vaginal cuff prolapse. She has had persistent and recurrent substance abuse including fentanyl and marijuana. She is admitted for further evaluation and care. PERTINENT PHYSICAL EXAMINATION: GENERAL: Pleasant, fair complexion Malaysian woman who is quite uncomfortable and rather anxious. HEENT: Mucous membranes are slightly moist. NECK: Trachea is midline. CHEST: Clear. HEART: Regular without murmur. ABDOMEN: Scaphoid. There is marked tenderness in the epigastric area. There is no palpable mass. She has no ascites. Left lower abdomen is nontender at this time. LABORATORY STUDIES: White count was only 8.6, hematocrit 35.9, platelets 304,000. Chem profile showed potassium of 3.4, creatinine 0.54. Liver enzymes normal. Albumin 3.3. Beta HCG negative (the patient does have hysterectomy after all). Urinalysis was normal. HOSPITAL COURSE: The patient was fluid resuscitated and given broad-spectrum antibiotics. She is considered likely to have perforated gastric ulcer given her smoking history and location of tenderness and CT scan findings. She was taken promptly to operation at approximately midnight where she underwent laparoscopy. Generalized peritonitis with free intraperitoneal air was noted. Extensive laparoscopic evaluation showed no evidence of perforated duodenal or gastric ulcer. She was found indeed to have serosal Electronically Signed By: NIKOLE SCOTT MD 10/18/24 1232 PATIENT NAME: SHAMA MERLOS DISCHARGE SUMMARY DATE OF : 80 REPORT #: [id number] PHYSICIAN: NIKOLE SCOTT MD PCP: RON ROWLAND MD REPORT IS CONFIDENTIAL AND NOT TO BE RELEASED WITHOUT AUTHORIZATION [facility] [address] [place], [place] [address] Signed separation related to hard stool in the sigmoid colon and a very small, but real full-thickness perforation of the colon. This would be considered a perforated stercoral colitis. Given the extent of stool burden in the colon on the left side, rectum and elsewhere open operation was undertaken. Through a lower midline incision, rock hard stool balls were withdrawn from the rectum into the sigmoid, splenic flexure mobilization accomplished and multiple areas of hard stool ball were milked into the sigmoid and left colon allowing for the segmental resection in continuity with the perforated area. There was no diverticulitis to speak of but the perforation was real and documented by laparoscopic photos. Remaining stool which was less rock-like in the more proximal colon was milked out of the resected and divided left colon. Given the stool burden that remained for passage, it was deemed unwise to perform primary anastomosis even if more proximal diversion was to be accomplished (loop ileostomy). On that basis, she did have an end-colostomy and placement of drain in the pelvis. The rectal stump was secured to the pelvic sidewall for future reference for takedown of the colostomy. Postoperatively, she had much improvement as might be expected. The drain showed no noxious fluid. She did have a fair amount of anxiety for which she was treated with hydroxyzine with excellent benefit and started on Prozac as well. In due course, the colostomy began working and by the day of discharge, she is ambulating well, tolerating a regular diet, has minimal incisional pain and has a good ability of management of the colostomy for now. The drain that was placed was removed prior to discharge. The overall plan is to do takedown of the colostomy in approximately two months or so depending on her clinical course. Clearance of the remaining stool from the colon will be an ongoing endeavor with the use of MiraLAX on a daily basis and continued use of milk of magnesia as necessary also. Additionally, she will be maintained with Prozac on a daily basis and hydroxyzine on an episodic basis. She is recommended to shower on a routine basis and will be seeing the wound care clinic for ostomy assessment and evaluation on a weekly basis. I will remove her megan at the next opportunity. DISCHARGE MEDICATIONS: Will include: 1. Motrin 600 mg p.o. q.6 hours as needed for pain, #30. 2. Tylenol 1000 mg p.o. q.6 hours as needed for pain, #30, refill one. 3. Prozac, Fluoxetine 20 mg p.o. daily, #30, refill three. 4. Hydroxyzine pamoate 25 mg capsule p.o. q.6 hours as needed for anxiety, #60, refill three. 5. Magnesium hydroxide, milk of magnesia 30 mL p.o. daily as needed for constipation. 6. MiraLAX 17 g powder packet daily and every day and to avoid missing any doses, #30, Electronically Signed By: NIKOLE SCOTT MD 10/18/24 1232 PATIENT NAME: SHAMA MERLOS DISCHARGE SUMMARY DATE OF : 80 REPORT #: [id number] PHYSICIAN: NIKOLE SCOTT MD PCP: RON ROWLAND MD REPORT IS CONFIDENTIAL AND NOT TO BE RELEASED WITHOUT AUTHORIZATION [facility] [address] [place], [place] [address] Signed refill 12. 7. Famotidine 20 mg p.o. q.12 hours. DISCHARGE DIAGNOSES: 1. Free intraperitoneal air related to small perforation of sigmoid colon from stercoral perforation, status post laparoscopy with peritoneal lavage and open sigmoid resection with end colostomy and Valdo's pouch. 2. Underlying anxiety disorder. 3. Substance abuse, fentanyl and marijuana. 4. History of uterine prolapse requiring hysterectomy and subsequent vaginal prolapse pending repair. 5. Chronic constipation leading to stercoral colitis with focal perforation. MD PRASHANT Genao/PATTI /[id number] cc: Dr. Jonathan Rowland MD Copies: RON ROWLAND MD ~ Electronically Signed By: NIKOLE SCOTT MD 10/18/24 1232 PATIENT NAME: SHAMA MERLOS DISCHARGE SUMMARY DATE OF : 80 REPORT #: [id number] PHYSICIAN: NIKOLE SCOTT MD PCP: RON ROWLAND MD REPORT IS CONFIDENTIAL AND NOT TO BE RELEASED WITHOUT AUTHORIZATION
== END 2024-10-16 13:55 | disposition home or self-care (01) | DRG 344 ==
LOC: ED 17:05 → MS 23:05 → CCU 23:05 → MS 10-10 03:19 → ED 10-10 03:19 → CCU 10-10 03:19 → MS 10-11 21:04
PROVIDERS: Emergency Medicine; Internal Medicine; ADMIT Surgery; ATTEND Surgery
PROC: 0DSN0ZZ Reposition Sigmoid Colon, Open Approach (ICD-10-PCS; principal; 2024-10-10)
DX: K52.9 Noninfective gastroenteritis and colitis, unspecified (principal); K63.1 Perforation of intestine (nontraumatic); F41.9 Anxiety disorder, unspecified; F11.10 Opioid abuse, uncomplicated; E66.9 Obesity, unspecified; K57.10 Diverticulosis of small intestine without perforation or abscess without bleeding; N81.10 Cystocele, unspecified; K66.8 Other specified disorders of peritoneum; F12.10 Cannabis abuse, uncomplicated; K59.09 Other constipation; D64.9 Anemia, unspecified; Z98.51 Tubal ligation status; Z90.710 Acquired absence of both cervix and uterus; Z98.890 Other specified postprocedural states; Z88.8 Allergy status to other drugs, medicaments and biological substances
CPT/HCPCS: 00790; 36415; 74177; 76942; 80048; 80053; 80307; 81003; 83690; 83735; 84703; 85025; 88307; 96375; 97161; 97165; 97530; 99285-25; A9270; J0330; J1100; J1171; J1885; J2003; J2060; J2185; J2270; J2405; J2704; J2795; J3010; J3490; J7050; J7121; Q0177; Q9967

== ENCOUNTER 2024-11-06 15:01 | Emergency (ER) | payer OTHER ==
[~2024-11-06] VITALS: Ht 170.2 cm; Wt 93.2 kg
[~2024-11-06 15:01] MED LIST changes: +ACETAMINOPHEN500 MG PO; +FAMOTIDINE20 MG PO; +FLUOXETINE HCL20 MG PO; +HEALTHYLAX17 GM PO; +HYDROXYZINE PAM25 MG PO; +IBUPROFEN600 MG PO; +MILK OF MA400 MG/5 M PO
--- OUTSIDE RECORDS SUMMARY | 2024-11-06 15:07 | XMS ---
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 Mumtaz has no Care Guidelines for this patient. [facility] (12 MO[address] [facility] NOTE: Visits indicate total known visits. ED/C VISIT TRACKING (12 MO.) [facility] COMPLAINT: - LEG SWELLING 10/09/2024 17:06 [facility] [place] TYPE: Emergency COMPLAINT: - ABDOMINAL PAIN 06/02/2024 22:21 [facility] [place] TYPE: Emergency COMPLAINT: - POSS UTI DIAGNOSES: - Allergy status to other drugs, medicaments and biological substances - Dysuria - Other snf (current) drug therapy - Retention of urine, unspecified 04/11/2024 11:36 [facility] [place] TYPE: Emergency COMPLAINT: - LT EYE PAIN DIAGNOSES: - Allergy status to other drugs, medicaments and biological substances - Exposure to other specified factors, initial encounter - Injury of conjunctiva and corneal abrasion without foreign body, left eye, initial encounter - Other snf (current) drug therapy - Unspecified injury of left eye and orbit, initial encounter INPATIENT VISIT TRACKING (12 MO.) 10/09/2024 23:05 [facility] [place] TYPE: Medical Surgical COMPLAINT: - PEFORATED VISCOUS DIAGNOSES: - Acquired absence of both cervix and uterus - Acquired absence of both cervix and uterus - Allergy status to other drugs, medicaments and biological substances - Allergy status to other drugs, medicaments and biological substances - Anemia, unspecified - Anemia, unspecified - Anxiety disorder, unspecified - Anxiety disorder, unspecified - Cannabis abuse, uncomplicated - Cannabis abuse, uncomplicated - Cystocele, unspecified - Cystocele, unspecified - Diverticulosis of small intestine without perforation or abscess without bleeding - Diverticulosis of small intestine without perforation or abscess without bleeding - Noninfective gastroenteritis and colitis, unspecified - Noninfective gastroenteritis and colitis, unspecified - Obesity, unspecified - Obesity, unspecified - Opioid abuse, uncomplicated - Opioid abuse, uncomplicated - Other constipation - Other constipation - Other specified disorders of peritoneum - Other specified disorders of peritoneum - Other specified postprocedural states - Other specified postprocedural states - Perforation of intestine (nontraumatic) - Tubal ligation status - Tubal ligation status 04/01/2024 06:00 [facility] [place] TYPE: Medical Surgical COMPLAINT: - TVH,A P,SLING DIAGNOSES: - Acute posthemorrhagic anemia - Allergy status to other drugs, medicaments and biological substances - Complete uterovaginal prolapse - Homelessness unspecified - Mixed incontinence - Other constipation - Tubal ligation status [email or web address]
[2024-11-06] MEDS ORDERED: POTASSIUM CHLO10 MEQ PO (16:37)
[2024-11-06] MEDS ORDERED: LASIX20 MG PO (16:37)
[2024-11-06 16:40] VITALS: BP 115/57
== END 2024-11-06 16:42 | disposition home or self-care (01) ==
LOC: ED 15:01
DX: R60.0 Localized edema (principal); Z79.899 Other long term (current) drug therapy; Z88.8 Allergy status to other drugs, medicaments and biological substances
CPT/HCPCS: 93970; 99284-25

== ENCOUNTER 2025-01-14 19:57 | Emergency (ER) | payer OTHER ==
[~2025-01-14] VITALS: Ht 170.2 cm; Wt 86.0 kg
[~2025-01-14 19:57] MED LIST changes: +LASIX20 MG PO; +POTASSIUM CHLO10 MEQ PO
[2025-01-14] MEDS ORDERED: LACTATED RINGER'S 1,000 ML IV ONE (20:30)
[2025-01-14 20:34] LABS: BASOPHILS 0.5 % (0.1-1.2); EOSINOPHILS 3.9 % (0.7-5.8); LYMPHOCYTES 44.4 % (19.3-51.7); MCH 22.8 PG (25.6-32.2); MCHC 30.2 g/dL (32.2-35.5); MCV 75.6 fL (79.4-94.8); MONOCYTES 6.3 % (4.7-12.5); NEUTROPHILS 44.7 % (34.0-71.1); RBC 4.51 M/uL (3.93-5.22)
[2025-01-14 20:50] LABS: ALT (SGPT) 26.0 U/L (14-59); AST (SGOT) 30.0 U/L (15-37); GLOMERULAR FILTRATION RATE,EST 111.0 mL/min (>60); PROTEIN, TOTAL 7.2 g/dL (6.4-8.2); UREA NITROGEN 9.0 mg/dL (7-18)
[2025-01-14 22:18] VITALS: BP 119/66
== END 2025-01-14 22:20 | disposition home or self-care (01) ==
LOC: ED 19:57
PROVIDERS: Internal Medicine
DX: K94.09 Other complications of colostomy (principal); G89.18 Other acute postprocedural pain; Z88.8 Allergy status to other drugs, medicaments and biological substances; Z79.899 Other long term (current) drug therapy; Z79.2 Long term (current) use of antibiotics
CPT/HCPCS: 36415; 74177; 80053; 83690; 85025; 99284-25; J7121; Q9967

== ENCOUNTER 2025-03-09 13:52 | Day surgery (SDC) | payer OTHER ==
[~2025-03-09] VITALS: Ht 170.2 cm; Wt 86.6 kg
[~2025-03-09 13:52] MED LIST changes: +IBLOOD GLUCOSE TEST STRIP 1 EA TEST VI PRN; +LACTATED RINGER'S 1,000 ML IV SCH; +LIDOCAINE HCL 1% 5 ML SDV INJ ONE; +MIDAZOLAM HCL 5 MG/5 ML VIAL IV PRN; +MIDAZOLAM HCL 5 MG/5 ML VIAL ONE; +fentaNYL citrate 100 MCG/2 ML VIAL IV PRN; +fentaNYL citrate 100 MCG/2 ML VIAL ONE
[2025-03-09] MEDS ORDERED: BUPRENORPHINE-1 EACH IV/IM (14:07)
[2025-03-09] MEDS ORDERED: MIRALAX119 GM PO (14:07)
[2025-03-09 14:14] VITALS: BP 106/62
--- NOTE | 2025-03-09 15:17 | NUR ---
03/09/25 1517 Mary Talamantes HOB IS ELEVATED. PATIENT DENIES PAIN. ICED WATER IS GIVEN.
[2025-03-09 15:52] VITALS: BP 109/79
[2025-03-09 16:49] VITALS: BP 110/69
--- NOTE | 2025-03-09 16:50 | NUR ---
PATIENT WAKES TO MY VOICE. SHE TAKES DRINKS OF WATER AND IS TALKING WITH ME. SHE DOES WELL WITH DRINKING.
--- NOTE | 2025-03-09 16:52 | NUR ---
DISCHARGE INSTRUCTIONS ARE REVIEWED WITH PATIENT. SHE VERBALIZES UNDERSTANDING.
--- NOTE | 2025-03-09 16:58 | NUR ---
PATIENT REPOSITIONS HERSELF ON THE EDGE OF HER BED, WITH HER FEET DEPENDENT. SHE DOES WELL WITH THAT. SHE AMBULATES TO THE BATHROOM AND IS INDEPENDENT WITH HER CARES THERE.
--- NOTE | 2025-03-09 17:00 | NUR ---
PATIENT IS GETTING DRESSED BEHIND THE CURTAIN. SHE VERBALIZES UNDERSTANDING OF SAFETY PRECAUTIONS.
--- NOTE | 2025-03-09 17:11 | NUR ---
PATIENT IS DRESSED, TRANSFERS TO AND THEN TO PERSONAL VEHICLE AND TOLERATES THAT WELL.
--- NOTE | 2025-03-13 14:10 | OR ---
[facility] [address], [place] [address] Signed DATE OF OPERATION: 03/09/2025 SURGEON: Nikole Scott MD PREOPERATIVE DIAGNOSES: 1. History of emergent sigmoid resection for perforated stercoral ulceration on October 10, 2024. 2. Status post sigmoid resection with Valdo's procedure. POSTOPERATIVE DIAGNOSES: 1. Proximal colon without sign of lesion. 2. Rectal remnant 18 cm to include low portion of sigmoid. 3. Small polyp at 16 cm (excised). PROCEDURES: 1. Total colonoscopy to cecum via left colostomy origin. 2. Flexible proctoscopy with cold morcellation polypectomy. ANESTHESIA: Intravenous IV fentanyl 150 mcg and Versed 5 mg. INDICATION: This 44-year-old Citizen Of [place] woman presented with emergency findings of perforated colon in the sigmoid related to stercoral ulceration. The patient had profound constipation related to ongoing opiate abuse problems at that time. She required a Valdo's procedure (sigmoid resection with over-sew of rectosigmoid stump and end colostomy). This was all performed on October 10, 2024. She has recovered well from that and has maintained sobriety with the drug program and doing quite well. No longer dependent on opiate medication. Consideration is made for takedown of the colostomy at this point. So as to be certain there is no proximal lesion that would need to be accounted for or to modify intended takedown of the colostomy, colonoscopy and flexible proctoscopy have been recommended. The risk of bleeding, infection, and perforation were reviewed with her. She understands and wished to proceed. FINDINGS: The colon proximal to the colostomy related to the descending colon showed no evidence of polyps or neoplasm. The prep was not great but is certainly adequate for the purpose at hand. As regards the rectal stump, it extended to 18 cm by flexible sigmoidoscopy. There was an adenomatous polyp at approximately 16 cm which was excised completely. There were no contraindications to planned reanastomosis noted. Electronically Signed By: NIKOLE SCOTT MD 03/13/25 1410 PATIENT NAME: SHAMA MERLOS OPERATIVE REPORT DATE OF : 80 REPORT #: [id number] PHYSICIAN: NIKOLE SCOTT MD PCP: RON ROWLAND MD REPORT IS CONFIDENTIAL AND NOT TO BE RELEASED WITHOUT AUTHORIZATION [facility] [address] [place] [id number] Signed DESCRIPTION OF PROCEDURE: The patient was brought to the endoscopy suite and placed in a semirecumbent position, given intravenous sedation to the point of slurred speech and nystagmus. The ostomy appliance was removed and digital examination of the ostomy showed it to be well healed and intact. An Olympus video colonoscope was passed into the ostomy site and inflated proximally throughout the colon ultimately intubating the cecum itself. There was no sign of bulky stool but somewhat thick gelatinous covering. Irrigation was undertaken. There was no sign of lesion to contraindicate takedown of the colostomy, certainly no polyps, colitis, stricture or other problem. The scope was withdrawn and plans made for flexible sigmoidoscopy/proctoscopy. With the legs in frog-legged position with the assistance of the nurse (Nivia) digital rectal examination was undertaken allowing for introduction of the flexible colonoscope. The rectal stump was impressively well prepared, having had as a preparation approach to Fleet enemas. Scope was passed to about 16 cm where an adenomatous polyp was noted, this was excised with cold morcellation technique. The scope was further advanced to the end of the sigmoid/rectal stump, which was measured at approximately 18 cm from the anal verge. The scope was then withdrawal . There was no sign of abnormality specifically no diversion, colitis, diverticula in the proximal portion, only the small polyp noted. The scope was removed. The patient was taken to recovery room in good condition. CONCLUDING DIAGNOSIS: No lesion to contraindicate takedown of colostomy in the near future. PLAN: She will call our office, we will make arrangements to do so. MD PRASHANT Genao/SUMMERL /[id number] Electronically Signed By: NIKOLE SCOTT MD 03/13/25 1410 PATIENT NAME: SHAMA MERLOS OPERATIVE REPORT DATE OF : 80 REPORT #: [id number] PHYSICIAN: NIKOLE SCOTT MD PCP: RON ROWLAND MD REPORT IS CONFIDENTIAL AND NOT TO BE RELEASED WITHOUT AUTHORIZATION [address] [address] Signed cc: Dr. Rowland [facility] Copies: ~ Electronically Signed By: NIKOLE SCOTT MD 03/13/25 1410 PATIENT NAME: BENITA MERLOSQuiana BARRIENTOS OPERATIVE REPORT DATE OF : 80 REPORT #: [id number] PHYSICIAN: NIKOLE SCOTT MD PCP: RON ROWLAND MD REPORT IS CONFIDENTIAL AND NOT TO BE RELEASED WITHOUT AUTHORIZATION
== END 2025-03-09 17:06 | disposition home or self-care (01) ==
LOC: DS 13:52
PROVIDERS: ATTEND Surgery
PROC: 0DBN8ZX Excision of Sigmoid Colon, Via Natural or Artificial Opening Endoscopic, Diagnostic (ICD-10-PCS; 2025-03-09)
PROC: 0DJD8ZZ Inspection of Lower Intestinal Tract, Via Natural or Artificial Opening Endoscopic (ICD-10-PCS; principal; 2025-03-09 15:00)
DX: K63.5 Polyp of colon (principal); Z93.3 Colostomy status; Z90.49 Acquired absence of other specified parts of digestive tract; Z88.8 Allergy status to other drugs, medicaments and biological substances
CPT/HCPCS: 88305; G0500; J2250; J3010; J7121

== ENCOUNTER 2025-04-09 09:38 | Inpatient (IN) | payer OTHER ==
[~2025-04-09] VITALS: Ht 170.2 cm; Wt 86.8 kg
--- OUTSIDE RECORDS SUMMARY | ~2025-04-09 | XMS | Continuity of Care Document ---
Demographics + + + | Address | [address] | | | [place] [address] | + + + | Preferred Language | Unknown | + + + | Marital Status | | + + + | Pentecostalism Affiliation | Unknown | + + + | Race | or | + + + | Ethnic Group | Not or | + + + Author + + + | Author | [facility] | + + + | Organization | [facility] | + + + | Address | [address] | | | [place] [address] | + + + | Phone | | + + + Care Team Providers + + + + | Care Finished Goods Planner Name | Role | Phone | + [...] | (no date) | Buprenorphine HCl/Naloxone | [facility] | | | HCl | [facility] | + + + + | (no date) | SENNOSIDES/DOCUSATE SODIUM | [facility] | | | | [facility] | + + + + | (no date) | SENNOSIDES/DOCUSATE SODIUM | [facility] | | | | [facility] | + + + + | (no date) | ACETAMINOPHEN | [facility] | | | | [facility] | + + + + | (no date) | ACETAMINOPHEN | [facility] | | | | [facility] | + + + + | (no date) | Ibuprofen | [facility] | | | | [facility] | + + + + | (no date) | Ibuprofen | [facility] | | | | [facility] | + + + + | (no date) | Cyanocobalamin (Vitamin | [facility] | | | B-12) | [facility] | + + + + | (no date) | Cyanocobalamin (Vitamin | [facility] | | | B-12) | [facility] | + + + + | (no date) | POLYETHYLENE GLYCOL 3350 | [facility] | | | | [facility] | + + + + | (no date) | POLYETHYLENE GLYCOL 3350 | [facility] | | | | [facility] | + + + + Problems + + + + | date | description | facility | + + + + | 2025-01-14 00:00 | Abdominal pain | [facility] | | | | [facility] | + + + + | 2025-01-14 00:00 | Abdominal pain | [facility] | | | | [facility] | + + + + | 2025-02-22 00:00 | Patient left without being | [facility] | | | seen | [facility] | + + + + | 2025-02-22 00:00 | Patient left without being | [facility] | | | seen | [facility] | + + + + Procedures + + + + | date | description | facility | + + + + | 2025-03-09 00:00 | Colonoscopy with biopsy of | [facility] | | | colon | [facility] | + + + + | 2025-03-09 00:00 | Colonoscopy with biopsy of | [facility] | | | colon | [facility] | + + + + Results/Labs [...]
[~2025-04-09 09:38] MED LIST changes: +BUPRENORPHINE-1 EACH IV/IM; -IBLOOD GLUCOSE TEST STRIP 1 EA TEST VI PRN; -LACTATED RINGER'S 1,000 ML IV SCH; -LIDOCAINE HCL 1% 5 ML SDV INJ ONE; -MIDAZOLAM HCL 5 MG/5 ML VIAL IV PRN; -MIDAZOLAM HCL 5 MG/5 ML VIAL ONE; +SUBLOCADE100 MG/0.5 SUB-Q; -fentaNYL citrate 100 MCG/2 ML VIAL IV PRN; -fentaNYL citrate 100 MCG/2 ML VIAL ONE
[2025-04-13] VITALS (9 sets, daily range): BP systolic 107–128; BP diastolic 60–88
[2025-04-13] MEDS ORDERED: LACTATED RINGER'S 1,000 ML IV SCH ×2 (05:00→12:15)
[2025-04-13] MEDS ORDERED: HEParin SOD (PORCINE) 5,000 UNIT/ML SDV SUB-Q SCH (07:00)
[2025-04-13] MEDS ORDERED: IBLOOD GLUCOSE TEST STRIP 1 EA TEST VI PRN ×2 (07:00→10:45)
[2025-04-13] MEDS ORDERED: CEFAZOLIN SODIUM 2 GM in SODIUM CHLORIDE 0.9% 100 ML IV SCH ×2 (07:00→14:00)
[2025-04-13] MEDS ORDERED: LIDOCAINE HCL 1% 5 ML SDV INJ ONE (07:00)
[2025-04-13] MEDS ORDERED: SUGAMMADEX SODIUM 200 MG/2 ML ML ONE (07:08)
[2025-04-13] MEDS ORDERED: ROCURONIUM BROMIDE 50 MG/5 ML SYR ONE ×2 (07:08→09:03)
[2025-04-13] MEDS ORDERED: KETOROLAC TROMETHAMINE 30 MG/ML VIAL ONE (07:08)
[2025-04-13] MEDS ORDERED: LIDOCAINE HCL 2% 5 ML SDV ONE (07:08)
[2025-04-13] MEDS ORDERED: DEXAMETHASONE SOD PHOS 4 MG/ML VIAL ONE ×2 (07:08→08:18)
[2025-04-13] MEDS ORDERED: LIDOCAINE HCL 1% 30 ML SDV ONE (07:08)
[2025-04-13] MEDS ORDERED: KETAMINE in NS 50 MG/5 ML SYR ONE (07:09)
[2025-04-13] MEDS ORDERED: fentaNYL citrate 100 MCG/2 ML VIAL ONE (07:11)
[2025-04-13] MEDS ORDERED: MIDAZOLAM HCL 2 MG/2 ML VIAL ONE (07:11)
[2025-04-13] MEDS ORDERED: ACETAMINOPHEN 1,000 MG/100 ML VIAL ONE (07:13)
--- NOTE | 2025-04-13 07:57 | NUR ---
VISITED DURING SPIRITUAL CARE ROUNDS. PT SUPPORTED BY AUNT ADRIANA IN ROOM. BOTH IN OVERALL GOOD SPIRITS; NO IMMEDIATE NEEDS. ENGINEERING ASSOCIATE PROVIDED SUPPORTIVE PRESENCE, HOSPITALITY, PRAYER, FACILITATED INTERACTION WITH THERAPY ANIMAL. PT AND AUNT EXPRESSED GRATITUDE; FAMILY SOURCE OF STRENGTH.
[2025-04-13] MEDS ORDERED: Ropivacaine HCl 0.5% 30 ML VIAL ONE (08:16)
[2025-04-13] MEDS ORDERED: SODIUM CHLORIDE 0.9% 60 ML IV ONE (08:16)
[2025-04-13] MEDS ORDERED: LACTATED RINGER'S 1,000 ML IV ONE (08:34)
[2025-04-13] MEDS ORDERED: SODIUM CHLORIDE 0.9% 20 ML IV ONE (10:00)
[2025-04-13] MEDS ORDERED: SEVOFLURANE 250 ML BTL INH ONE (10:15)
[2025-04-13] MEDS ORDERED: MIDAZOLAM HCL 2 MG/2 ML VIAL IV PRN (10:45)
[2025-04-13] MEDS ORDERED: NALOXONE HCL 0.4 MG SYR IV PRN (10:45)
[2025-04-13] MEDS ORDERED: fentaNYL citrate 50 MCG/ML SDV IV PRN (10:45)
[2025-04-13] MEDS ORDERED: HYDROmorphone HCL 1 MG/ML SYR IV PRN (10:45)
--- NOTE | 2025-04-13 11:56 | NUR ---
04/13/25 Sharlene6 Vianey Marrero 1141-PATIENT ARRIVED TO PACU ON 6L MASK NONAROUSABLE ORAL AIRWAY IN PLACE RR EVEN. SR HR 60'S. IVF INFUSING. DRESSING TO MIDLINE INCISION INTACT. OLD OSTOMY SITE HAS DRAINAGE ON DRESSING. GUSTAVO DRAIN TO LLQ SANGUINOUS DRAINAGE. CELIS CATHETER DRAINING YELLOW URINE.
[2025-04-13] MEDS ORDERED: FAMOTIDINE 20 MG/ 2 ML VIAL IV SCH (12:08)
[2025-04-13] MEDS ORDERED: KETOROLAC TROMETHAMINE 30 MG/ML VIAL IV PRN (12:15)
[2025-04-13] MEDS ORDERED: LIDOCAINE 2% VISCOUS 6 ML SYR TOP ONE (12:15)
[2025-04-13] MEDS ORDERED: MORPHINE SULFATE 10 MG/ML VIAL IV PRN (12:15)
--- NOTE | 2025-04-13 12:58 | NUR ---
Pt arrived to the room at about 1249 hours, report received from [facility] CARE AND HOME HEALTH AIDES TEACHER. Pt is drowsy, responds to voice, mumbles a few words, then falls back to sleep. VS obtained and are stable with room air sats at 98%. Noted a silver dollar sized area of shadowing on the left lower quadrant dressing from old ostomy site. Side rails up x4, call light in reach. Castro catheter draining. IV Site is patent. IVF started at ordered rate per emar. White board updated. Pt provided with iced water but has not yet attempted to eat or drink anything. When asked, she states she isn't having any pain.
--- NOTE | 2025-04-13 13:10 | NUR ---
BIDSIDE REPORT RECEIVED FROM AIME MCNAMARA. PT RESTS IN BED WITH EYES CLOSED, RESP EVEN AND UNLABORED, CPOX IN PLACE, PT SPO2 99% ON RA.
--- NOTE | 2025-04-13 13:20 | NUR ---
PT RESTS IN BED WITH EYES CLOSES, ROUSES TO VOICE, DROWSY. SCD'S IN PLACE TO BLE, CPOX IN PLACE, PT SPO2 99% ON RA. IV IN LFA C/D/I, NO REDNESS OR SWELLING NOTED. LR INFUSING AT 85 ML/HR. LUNGS CLEAR, HRR, BT HYPOACTIVE X4 QUADRANTS. ABDOMEN SOFT. LUQ DRESSING INTACT WITH MODERATE SANGUINEOUS SHADOWING. RUQ DRESSING C/D/I. CELESTINO DRAIN EXITING LEFT ABDOMEN, BULD DECOMPRESSED, SEROSANGUINEOUS DRAINAGE NOTED. CELIS CATHETER IN PLACE, SECURED TO RLE, DRAINS CLEAR YELLOW URINE TO GRAVITY. CALL LIGHT IN REACH, BED IN LOW POSITION, RAILS UP X4. NO REQUESTS AT THIS TIME.
--- NOTE | 2025-04-13 14:09 | NUR ---
PT CONTINUES TO REST WITH EYES CLOSED, RESP EVEN AND UNLABORED, VSS. PT ROUSES EASILY TO VERBAL STIMULI. DRESSINGS TO ABDOMEN REMAIN INTACT. NO NEW DRAINAGE NOTED. CELESTINO DRAIN BULD REMAINS DECOMPRESSED. NO REQUESTS AT THIS TIME.
[2025-04-13] MEDS ORDERED: FAMOTIDINE 20 MG/ 2 ML VIAL ONE (14:14)
--- NOTE | 2025-04-13 14:45 | NUR ---
IN TO SEE PATIENT. ASLEEP. ALLOWED TO REST AT THIS TIME.
--- NOTE | 2025-04-13 14:59 | NUR ---
PT CONTINUES TO REST IN BED WITH EYES CLOSED, RESP EVEN AND UNLABORED, ROUSES EASILY TO VERBAL STIMULI. NO REQUESTS AT THIS TIME. VSS. CELIS CATHETER CONTINUES TO DRAIN CLEAR YELLOW URINE TO GRAVITY. LR INFUSING AT 85 ML/HR, IV SITE INTACT, NO REDNESS, SWELLING OR LEAKING NOTED. SCDS TO BLE. CPOX IN PLACE. DRESSING TO ABDOMEN REMAIN INTACT, NO NEW DRAINAGE NOTED. CELESTINO DRAIN BULB COMPRESSED. CALL LIGHT IN REACH.
--- NOTE | 2025-04-13 16:04 | NUR ---
PT RESTS IN BED WITH EYES CLOSED, RESP EVEN AND UNLABORED, ROUSES EASILY TO VOICE. VSS. VISITORS X2 AT BEDSIDE. CALL LIGHT IN REACH. DRESSING TO ABDOMEN REMAIN INTACT, NO NEW DRAINAGE. CELESTINO DRAIN BULB DECOMPRESSED. CELIS DRAINS CLEAR YELLOW URINE. NO REQUESTS AT THIS TIME.
--- NOTE | 2025-04-13 16:56 | NUR ---
PT USES CALL LIGHT, REPORTS 9/10 CRAMPING ABDOMINAL PAIN, TORADOL AND MORPHINE RECEIVED, SEE EMAR. VSS. CLEAR LIQUID DINNER TRAY APPRIVES. IS AT BEDSIDE. EDUCATION ON IS USE PROVIDED, PT RETURN DEMONSTRATES, VERBALIZES UNDERSTANDING. CELESTINO DRAIN EMPTIED, 25 MLS OF SEROSANGUINEOUS DRAINAGE NOTED. BULB DECROMPRESSED. NO NEW DRAINAGE NOTED ON ABDOMINAL DRESSINGS.
--- NOTE | 2025-04-13 17:59 | NUR ---
PATIENT IN BED RESTING AT THIS TIME. OUTPUT CHARTED. PATIENT STILL WORKING ON CLEAR LIQUID TRAY. CALL LIGHT IN REACH. NO FURTHER NEEDS AT THIS TIME.
--- NOTE | 2025-04-13 18:43 | NUR ---
PT RESTS IN BED WITH EYES CLOSED, RESP EVEN AND UNLABORED, CPOX SPO2 97% ON RA. CALL LIGHT IN REACH.
--- NOTE | 2025-04-13 19:23 | NUR ---
Awake, room air, cpox on at bedside, IVF infusing w/o problems. Pt on clear liquids. tolerating well, c/o mild abd discomfort but denies need for pain meds. SCD's in place, sitting up position in bed
--- NOTE | 2025-04-13 20:14 | NUR ---
Pt awake at times, drowsy others, on room air, post op CPOX ginny t bedside, sats WNL, Cooperative with vitals and assessments. lungs clear, IS at bedside, return demonstration done X3 while doing assessments. Abd tender, soft very faint bowel tones, denies passing gas, mid abd dressing opticot CDI and second surgical dressing L Mid flank/abd with old drainage, Deven tube dressing, deven tube with small amount of ss drainge. f/c patent, pericare done, drining small amount clear yellow urine at this time. SCD's on. helped with repositioning in bed. Tolerated well. c/o abd pain, medicated with Morphine 6mg IV, tolerating Jello and clear liquids small amounts, no c/o NV Alert and oriented, pleasant and cooperative.
--- NOTE | 2025-04-13 20:40 | EKG ---
[facility] [address] [place], [place] [address] Signed Normal sinus rhythm Normal ECG No previous ECGs available Confirmed by MAURA SOLIMAN MD ([id number]) on 04/13/2025 8:40:23 PM Electronically Signed By: MAURA SOLIMAN 04/13/252039 PATIENT NAME: BENITA MERLOSI FLOYD Electrocardiogram DATE OF : 80 PHYSICIAN: MAURA SOLIMAN REPORT #: [id number] REPORT IS CONFIDENTIAL AND NOT TO BE RELEASED WITHOUT AUTHORIZATION
--- NOTE | 2025-04-13 22:08 | NUR ---
Pt more awake, alert and oriented. Up to edge of bed and walked to BR door and back, 2PA, tolerated fair, Back to bed with assist. abd dressing no changes, not passing gas, CPOX at bedside, IVf and IV abx infusing w/o problems. f/c patent, brake tube with ss drainage. SCDS in place. pillow for abd in place. Alarms on for safety, reassured and efforts praised, cooperative
--- NOTE | 2025-04-13 22:22 | NUR ---
Crying, medicated with morphine 6mg IV 03/24 abd pain, reassured, Fresh jello and cranberry juice given on request. Denies n/v
--- NOTE | 2025-04-13 23:20 | NUR ---
Resting, eyes closed, no distress, on room air, CPOx at bedside. IVF infusing w/o miguelina, f/c patent. Bed alrm in place
[2025-04-14] VITALS (9 sets, daily range): BP systolic 106–120; BP diastolic 55–70
--- NOTE | 2025-04-14 02:00 | NUR ---
AWAKENS EASILY, NO C/O ABD PAIN, DENIES PASSING GAS. ICE TO ABD AREA. JELLO GIVEN ON REQUEST
--- NOTE | 2025-04-14 03:47 | NUR ---
awake, crying, turned and repositioned. Medicated with Toradol IV. f/c patent. Skip tube patent. IVF infusing w/o problems.ice chips and jello given on request
[2025-04-14 05:42] LABS: BASOPHILS 0.1 % (0.1-1.2); EOSINOPHILS 0 % (0.7-5.8); LYMPHOCYTES 16.8 % (19.3-51.7); MCH 25.0 PG (25.6-32.2); MCHC 32.3 g/dL (32.2-35.5); MCV 77.5 fL (79.4-94.8); MONOCYTES 7.3 % (4.7-12.5); NEUTROPHILS 75.6 % (34.0-71.1); RBC 4.08 M/uL (3.93-5.22)
[2025-04-14 05:51] LABS: GLOMERULAR FILTRATION RATE,EST 116.0 mL/min (>60); UREA NITROGEN 8.0 mg/dL (7-18)
--- NOTE | 2025-04-14 06:42 | NUR ---
Resting, eyes closed, awakens easily, IVF/IV abx infusing w/o problems. cooperative, abd soft tnder, not passing gas, dressings no changes. Skip tube patent draining SS drainage, total of 40cc this shift. f/c draining dark yellow urine. QS.
--- NOTE | 2025-04-14 07:13 | NUR ---
VERBAL REPORT RECEIVED FROM ELLA RN, PT RESTS IN BED WITH EYES CLOSED, RESP EVEN AND UNLABORED, CPOX IN PLACE SPO2 98% ON RA.
--- NOTE | 2025-04-14 09:21 | NUR ---
UR CLINICAL REVIEW: MCG-PER MCG REVIEW MEETS INPT FOR GEN TRICE GRG FOR TAKEDOWN OF COLOSTOMY WITH NEED FOR IV PAIN CONTROL, MONITORING AND SERIAL LABS BASIC DMAP INPT 04/13/25 @ 1210 ORDER MATCHES REG DISCHARGE TO HOME WHEN STABLE MD ANTICIPATE GREATER THAN 2 MN. 04/15/25 DC
--- NOTE | 2025-04-14 09:46 | NUR ---
CELESTINO DRAIN EMPTIED, 10 MLS OF SEROSANGUINEOUS DRAINAGE NOTED. CELIS CARE PROVIDED. PT UP TO RECLINER WITH 1PA, TOLERATES THIS FAIR WITH MOANING AND CRYING. REQUESTS PAIN MEDICATION. CALL LIGHT IN REACH, BLE ELEVATED, BELONGINGS IN REACH.
--- NOTE | 2025-04-14 10:04 | NUR ---
PT RECEIVES MORPHINE FOR ABDOMINAL PAIN [facility], SEE EMAR.
--- NOTE | 2025-04-14 10:45 | NUR ---
RECEIVED CALL FROM Americo MILAN RN. PATIENT'S ELECTRICITY WAS SHUT OFF AT HOME AND SHE IS CONCERNED ABOUT NOT HAVING POWER. UPON ENTERING ROOM, PATIENT IS UP IN RECLINER, TEARFUL. STATES HER ROOMMATE RECENTLY MOVED OUT AND WAS SUPPOSED TO PAY THE POWER BILL BUT HAS NOT PAID AND IT IS CURRENTLY $400. STATES SHE THINKS SHE HAS IS HANDLED AT THE MOMENT, SHE ABLE TO GET A HOLD OF SOMEONE TO PAY THE BILL. DID DISCUSS [employer] RESOURCE FOR ASSISTANCE IF NEEDED, PHONE NUMBER PROVIDED. DEMOGRAPHICS VERIFIED. PATIENT LIVES IN HOUSE. ALONE AT THE MOMENT. HOWEVER SHE STATES SHE HAS A COUPLE OF "BUDDIES" TO COME STAY WITH HER WHEN SHE RETURNS HOME. SHE PLANS ON HAVING ASSISTANCE DURING HER SURGICAL RECOVERY. 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 HAS NO DME. DOES HAVE FOOD STAMPS AND DOES NOT NEED ASSISTANCE TO PAY FOR MEDS BECAUSE MEDICAID AND [employer] COVER THE COST. STATES SHE CURRENTLY HAS NO OTHER CM NEEDS. PLANS TO RETURN HOME WHEN MEDICALLY READY.
--- NOTE | 2025-04-14 10:53 | NUR ---
VISITED DURING SPIRITUAL CARE ROUNDS. PT APPEARED TO BE SLEEPING. DID NOT DISTURB. PROVIDED PRAYER.
--- NOTE | 2025-04-14 12:31 | NUR ---
PATIENT HAD 50% OF CLEAR LUNCH, MOVED SELF BACK TO BED. PATIENT TOLERATED ACTIVITY WELL.
--- NOTE | 2025-04-14 12:52 | NUR ---
PT RECEIVES TORADOL AND MORPHINE FOR ABDOMINAL PAIN, SEE EMAR. PT RESTS IN BED, AWAKE AND ALERT, WATCHES TV AND VISITS WITH HER AUNT IN ROOM. CALL LIGHT IN REACH, NO REQUESTS AT THIS TIME.
--- NOTE | 2025-04-14 13:31 | NUR ---
HOURLY ROUNDING, PATIENT VISITING WITH AUNT. NO REQUEST FROMPATIENT. CALL LIGHT PLACED WITHIN REACH
--- NOTE | 2025-04-14 13:56 | OR ---
[facility] [address], [place] [address] Signed DATE OF OPERATION: 04/13/2025 SURGEON: Nikole Scott MD PREOPERATIVE DIAGNOSES: 1. History of stercoral perforation of sigmoid colon, status post Valdo's procedure September 30, 2024 (sigmoid resection with end colostomy and rectal stump). 2. Ongoing substance abuse. POSTOPERATIVE DIAGNOSES: 1. History of stercoral perforation of sigmoid colon, status post Valdo's procedure September 30, 2024 (sigmoid resection with end colostomy and rectal stump). 2. Ongoing substance abuse. PROCEDURES: 1. Takedown of end LEFT colostomy with end-to-end colocolostomy. 2. Excision of colostomy site left abdomen and repair of abdominal wall. 3. Partial colectomy. ANESTHESIA: General endotracheal; Tennille Cindy, MANAGER EQUIPMENT and TAP block postoperatively. INDICATION: This 44-year-old woman has a longstanding history of substance abuse and last September in particular had a fair amount of fentanyl as part of her abused substances and had profound constipation ultimately developing a stercoral perforation of sigmoid colon. On September 30, 2024, she underwent emergency Valdo's procedure including sigmoid resection, end colostomy and over-sewing of the distal colonic segment. She has recovered fully from that and now is in a drug program, though she still episodically uses illicit drugs as well. She has undergone bowel prep and now to undergo takedown of the colostomy, which may include partial colectomy. The risk of bleeding, infection, anastomotic failure, and other unforeseen complications was reviewed with her in detail. She understands and wished to proceed. FINDINGS: There were very few intraabdominal adhesions, though there were considerable number of adhesions in relation to the end colostomy and omental adhesions. Once freed up, the end-to-end colocolostomy was undertaken in a hand-sewn technique with reapproximation of the mesentery. The left ovary and tube were intact and normal. There was a clip like device in the subperitoneal space on the left pelvic peritoneum, which was suggestive, Electronically Signed By: NIKOLE SCOTT MD 04/14/25 1356 PATIENT NAME: SHAMA MERLOS OPERATIVE REPORT DATE OF : 80 REPORT #: [id number] PHYSICIAN: NIKOLE SCOTT MD PCP: RON ROWLAND MD REPORT IS CONFIDENTIAL AND NOT TO BE RELEASED WITHOUT AUTHORIZATION [facility] [address] [place] [id number] Signed though nondiagnostic, of a tube clip, though I am not certain what it was, it was left in situ that was certainly not around the tube itself. There were no other findings of concern. She tolerated procedure well. DESCRIPTION OF PROCEDURE: The patient was brought to the operating room, given a general endotracheal anesthetic. She had undergone a complete bowel prep and preoperative antibiotics had been given as well. A Castro catheter was placed. Sequential compression device stockings were used and heparin subcutaneously administered. The ostomy appliance was removed. The abdomen was prepared with chlorhexidine solution and draped sterilely. An Ioban dressing was applied over the abdominal wall including the ostomy site itself. The previous infraumbilical incision was made and dissection was carried through the subcutaneous tissue with electrocautery. The midline fascia was incised and the abdomen entered. An incision was taken a bit around the umbilicus allowing for good access to the abdomen. There was no sign of inflammatory process at this point. There were dense omental adhesions to the exit site of the colostomy. Long sutures designating the end of the remaining colon were easily identified. The small bowel was packed to the right side of the abdomen after application of Bookwalter retractor isolating the colonic segments well. The more proximal colon emanating to the abdominal wall was taken down with meticulous care using sharp and electrocautery dissection freeing the omentum from that colonic segment. A 60 mm ROCHELLE stapling device was used to transect the colon near the abdominal wall itself. The redundant colon was secured in the upper abdomen. Attention was turned towards the distal segment. There did remain some small amount of sigmoid colon. This was dissected free from surrounding soft tissue and a segment of colon isolated away from the remaining portion. The right angle bowel clamp was applied to this area. The proximal end of the colon had a segment excised after freeing it entirely, but preserving its blood supply. An end-to-end colocolostomy then was undertaken in a two-layer technique of interrupted 3-0 silk suture. The mesenteric defect was reapproximated with interrupted 3-0 silk suture as well. After the anastomosis, gloves and gowns were changed. Irrigation undertaken into abdominal cavity. Through a left lower quadrant stab incision, a 7 mm flat Skip drain was placed in the depths of the pelvis. The uterus and left adnexal structures were identified as normal. There was a metallic clip like implement that was in the subperitoneal space. It was left in situ. It was definitely not surrounding the tube. Plans were then made for closure. Isolating laparotomy packs and Bookwalter instruments were removed and complete instrument and glove and gown change for new product protocol for closure of the wounds employed. The midline fascia was reapproximated with running bidirectional #1 PDS suture. Subcutaneous tissue was irrigated and skin closed with running subcuticular 3-0 Vicryl. Steri-Strips were applied as was a medium size Acticoat dressing. Ioban was removed and Electronically Signed By: NIKOLE SCOTT MD 04/14/25 1356 PATIENT NAME: SHAMA MERLOS OPERATIVE REPORT DATE OF : 80 REPORT #: [id number] PHYSICIAN: NIKOLE SCOTT MD PCP: RON ROWLAND MD REPORT IS CONFIDENTIAL AND NOT TO BE RELEASED WITHOUT AUTHORIZATION [facility] [address], [place] [address] Signed attention turned towards the remaining ostomy site. Electrocautery was used to incise the skin around the colostomy site and on traction, it was dissected free from the subcutaneous space ultimately intubating once again the peritoneal cavity. The peritoneal layer was isolated from the overlying muscle and secured with running #1 PDS suture. The muscular layers were reapproximated with interrupted #1 PDS as well. Irrigation was undertaken copiously. The subcutaneous space was left only minimally reapproximated with a single 3-0 Vicryl including the subcutaneous tissue and the dermis. This would allow for egress of fluid. An Acticoat dressing was applied to that area as well. The drain was attached to bulb suction. The patient then underwent TAP block anesthesia bilaterally. She was ultimately taken to recovery room in good condition having suffered no complications. Sponge, needle, and instrument counts were reported as correct x3. MD PRASHANT Genao/SUMMERL /[id number] cc: Ron Rowland MD Copies: RON ROWLAND MD ~ Electronically Signed By: NIKOLE SCOTT MD 04/14/25 1356 PATIENT NAME: SHAMA MERLOS OPERATIVE REPORT DATE OF : 80 REPORT #: [id number] PHYSICIAN: NIKOLE SCOTT MD PCP: RON ROWLAND MD REPORT IS CONFIDENTIAL AND NOT TO BE RELEASED WITHOUT AUTHORIZATION
--- NOTE | 2025-04-14 15:28 | NUR ---
HOURLY ROUNDING. PATIENT TAKING A NAP. NO REQUEST FROM PATIENT AT THIS TIME.
--- NOTE | 2025-04-14 17:26 | NUR ---
PT RECEIVES MORPHINE FOR PAIN MANAGEMENT PRIOR TO AMBULATION. IV TO SL, NO REDNESS, SWELLING OR LEAKING NOTED. DRESSING C/D/I. CPOX REMOVED. 25MLS OF SEROSANGUINEOUS DRAINAGE COLLECTED FROM CELESTINO DRAIN, BULB DECOMPRESSED. DRESSINGS TO ABDOMEN REMAIN C/D/I, NO NEW DRAINAGE NOTED. PT AMBULATES IN HALLWAY WITH DAJANEE, TREE CUTTER, STEADY GAIT.
--- NOTE | 2025-04-14 17:30 | NUR ---
PT COMPLETES TWO LAPS AROUND THE NURSES STATION, TOLERATES THIS WELL. PT BACK TO ROOM 116, SITS UP IN RECLINER. CALL LIGHT IN REACH. DINNER TRAY IN REACH, NO REQUESTS AT THIS TIME.
--- NOTE | 2025-04-14 18:30 | NUR ---
PATIENT ATE 90% OF FULL LIQUID DINNER WHILE UP TO CHAIR. PATIENT BACK TO BED, SCDS ARE ON. NO OTHER NEEDS AT THIS TIME.
--- NOTE | 2025-04-14 19:55 | NUR ---
PATIENT RESTING IN BED, DENIES NEEDS AT THIS TIME. CALL LIGHT IN REACH.
--- NOTE | 2025-04-14 21:27 | NUR ---
PATIENT LAYING IN BED. VITAL SIGNS AND I&OS WERE DONE. PATIENTS CALL LIGHT IS WITHIN REACH AND NO FURTHER NEEDS AT THIS TIME.
--- NOTE | 2025-04-14 21:50 | NUR ---
PATIENT RESTING IN BED. SCHEDULED MEDICATION ADMINISTERED PER ORDER. ASSESSMENT COMPLETE. IV FLUSHES WNL. PATIENT DENIES FURTHER NEEDS. CALL LIGHT IN REACH.
[2025-04-15] VITALS (9 sets, daily range): BP systolic 113–127; BP diastolic 53–74
--- NOTE | 2025-04-15 01:10 | NUR ---
THIS RN HELPED pt WALK 2 LAPS AROUND MED/SURG. pt HAD ONE ARM AROUND RN SHOULDER. pt DENIES ANY DIZINESS. pt DENIES ANY OTHER NEEDS AT THIS TIME. CALL LIGHT WITHIN REACH.
--- NOTE | 2025-04-15 01:27 | NUR ---
ROUNDING ON PATIENT. PATIENT CRYING IN BED. PATIENT STATING THAT SHE WANTS TO WALK. PATIENT AMBULATED 2 LAPS AROUND MED-SURG FLOOR. PATIENT STATED "SONIA WILL REALLY LOVE TO SEE THAT I WALKED". PATIENT BACK TO BED. PATIENT REPORTING 9/10 ABD PAIN. PRN PAIN MEDICATION ADMINISTERED. NO NEW DRAINAGE ON ABD DRESSINGS AND GUSTAVO DRAIN HAS MINIMAL DRAINAGE NOTED. BOWEL TONES ACTIVE. PATIENT HAS NO FURTHER NEEDS. BED ALARM ON. CALL LIGHT IN REACH.
--- NOTE | 2025-04-15 02:28 | NUR ---
PATIENT RESTING IN BED ON BACK WITH EYES CLOSED. RESPIRATIONS EVEN AND UNLABORED. CALL LIGHT IN REACH.
--- NOTE | 2025-04-15 04:20 | NUR ---
PATIENT RESTING IN BED ON BACK WITH EYES CLOSED. RESPIRATIONS EVEN AND UNLABORED. CALL LIGHT IN REACH.
--- NOTE | 2025-04-15 05:30 | NUR ---
PATIENT RESTING IN BED REPORTING PAIN. PRN PAIN MEDICATION ADMINISTERED. VS AND I&Os OBTAINED AND RECORDED. PATIENT DENIES FURTHER NEEDS AT THIS TIME. CALL LIGHT IN REACH.
--- NOTE | 2025-04-15 06:52 | NUR ---
pt WALKED 2 LAPS WITH THIS RN AROUND MED/SURG. pt DENIES ANY DIZINESS. pt BACK TO THE BED. pt DENIES ANY OTHER NEEDS AT THIS TIME. CALL LIGHT WITHIN REACH.
--- NOTE | 2025-04-15 08:08 | NUR ---
PATIENT IN CHAIR AT THIS TIME. COLLAR SHAPER OPERATOR CHARTED HOURLY ROUNDS. CALL LIGHT WITHIN REACH, NO FURTHER NEEDS.
--- NOTE | 2025-04-15 08:21 | NUR ---
sitting up in chair, eating, cooperative with vitals, medicated with MS 6mg IV. IVF infusing w/o problems, f/c in place
--- NOTE | 2025-04-15 08:39 | NUR ---
PATIENT IN CHAIR AT THIS TIME. HEAT TREAT OPERATOR CHANGED PATIENTS LINENS. CALL LIGHT WITHIN REACH, NO FURTHER NEEDS.
--- NOTE | 2025-04-15 09:20 | NUR ---
INTO SEE PATIENT. PATIENT STATES SHE IS SORE FROM SURGERY BUT FEELING ALRIGHT. SHE STATES THAT HER POWER IS EXPECTED TO BE TURNED ON TODAY AT SOME POINT. SHE HAS FRIENDS AND FAMILY AT HER HOUSE WAITING FOR WHEN SHE DISCHARGES. NO FUTHER CM NEEDS AT THIS TIME.
--- NOTE | 2025-04-15 10:04 | NUR ---
VISITED DURING SPIRITUAL CARE ROUNDS. PT APPEARED TO BE IN OVERALL GOOD SPIRITS, NO IMMEDIATE NEEDS. LIFE EDUCATOR PROVIDED SUPPORTIVE PRESENCE, HOSPITALITY, PRAYER. PT EXPRESSED GRATITUDE, HOPE.
--- NOTE | 2025-04-15 10:23 | PATH ---
[facility] [address], [place] [address] Signed SPECIMEN(S): A PORTION OF SIGMOID SPECIMEN(S): B COLOSTOMY SITE SPECIMEN SOURCE: A. PORTION OF SIGMOID B. COLOSTOMY SITE CLINICAL HISTORY: History perforation with colostomy FINAL PATHOLOGIC DIAGNOSIS: A. Portion of sigmoid per requisition, Part A per container: - Segment of large bowel with adventitial and serosal adhesions and patchy chronic inflammation - Negative for atypia or malignant neoplasm B. Colostomy site per requisition part B per container: - Skin and large bowel with adventitial fibrosis and adhesions; consistent with ostomy - Negative for atypia or malignant neoplasm BB MICROSCOPIC EXAMINATION: Histologic sections of all submitted blocks are examined by light microscopy. These findings, together with the gross examination, support the pathologic diagnosis. GROSS DESCRIPTION: A. The specimen, labeled and designated "Jimbo Uribe., portion of sigmoid per requisition, Part A per container," is received in formalin and consists of a 3 x 1.5 x 1.5 cm portion of colon with moderate amount of attached yellow lobulated adipose. 1 margin is opened while the opposing margin is sutured and stapled closed.. The serosal surface is esparza-pink and smooth. The mucosa is esparza-pink with intact mucosal folds. There are no discrete masses or polyps. Canal Equipment Maintenance Supervisor sections are submitted as follows: Cassette Summary: (A1) open margin (A2) close margin (A3) mucosa B. The specimen, labeled and designated "[place], K., colostomy site per requisition part B per container," is received in formalin and consists of a PATIENT NAME: SHAMA URIBE PATHOLOGY DATE OF : 80 REPORT #: [id number] PHYSICIAN: GREGORIO COOK PCP: RON GONZALEZ MD REPORT IS CONFIDENTIAL AND NOT TO BE RELEASED WITHOUT AUTHORIZATION [facility] [address], [place] [address] Signed 5.3 x 3.3 x 3.2 cm segment of bowel with a 3.2 x 2.8 cm ostomy site. There is scant amount of surrounding esparza skin. The serosal surface is esparza-pink with moderate amount of attached yellow lobulated adipose. The opposing margin is open but otherwise unremarkable. The mucosa is esparza-pink with intact mucosal folds. There are no discrete masses or polyps. Canal Equipment Maintenance Supervisor sections are submitted as follows: Cassette Summary: (B1) ostomy site, perpendicular (B2) margin, shaved AA (under the direct supervision of a pathologist) The Gross Description was prepared using a voice recognition system. The report was reviewed for accuracy; however, sound-alike word errors, addition and/or deletions may occur. If there is any question about this report, please contact Client Services. ADDITIONAL NOTES: Immunohistochemical and/or in situ hybridization studies if performed in this case included appropriate positive controls that reacted as expected. This test was developed and its performance characteristics determined by [facility]. It has not been cleared or approved by the U.S. Food and Drug Administration. The FDA has determined that such clearance or approval is not necessary. This test is used for clinical purposes. It should not be regarded as investigational or for research. [facility] is certified under the Clinical Laboratory Improvement Amendments of 1988 (CLIA) as qualified to perform high complexity clinical laboratory testing. PERFORMING LABORATORY: Technical component was performed by [facility], [address] [place] [id number] (CLIA# [id number]). Professional interpretation was performed by [facility] - [address] [place] [id number] (CLIA#: [id number]). Diagnostician: Ahsan Lo MD Pathologist Electronically Signed 04/15/2025 PATIENT NAME: SHAMA URIBE PATHOLOGY DATE OF : 80 REPORT #: [id number] PHYSICIAN: [facility] PCP: RON GONZALEZ MD REPORT IS CONFIDENTIAL AND NOT TO BE RELEASED WITHOUT AUTHORIZATION
--- NOTE | 2025-04-15 10:48 | NUR ---
Pt walked around nursing stations x3 and back to bed, tolerated well. On room air, abd soft tender, denies passing gas. dressing with old drainage. f/c patent. c/o abd pain medicated with morsphine 6mg
--- NOTE | 2025-04-15 10:55 | NUR ---
MED REC COMPLETE
--- NOTE | 2025-04-15 12:23 | NUR ---
Pt in bed, resting, eyes closed, was medicated earlie with good pain relief. IVF infusing w/o problems. f/c patent
--- NOTE | 2025-04-15 12:52 | NUR ---
c/o abd pain. GUSTAVO and old stoma dressing was removed by . midline incision with steri strips in place, old drainiage. CDI. and tender. KIKO, not passing gas yet. Medicated with Toradol IV. reassured. on low fiber now.
--- NOTE | 2025-04-15 13:21 | NUR ---
DC REVIEW: IV FLUIDS, INCREASE TO LOW FIBER DIET, NO BOWEL FUNCTION YET RETURNED. NEED TO CONTINUE TO MONITOR RETURN OF NORMAL BOWEL FUNCTION PLANS TO DC TO HOME WITH FRIENDS ASSISTING WHEN READY ADD: UNCLEAR, PENDING RETURN OF NORMAL BOWEL FUNCTION
--- NOTE | 2025-04-15 15:03 | NUR ---
REFERRED BY MEDICAL STAFF WHO INDICATED PT HAD REQUESTED VISIT FROM THERAPY ANIMAL. PT IN BED, OVERALL HAPPY WITH PROGRESS, STATED FEELING GOOD, DETERMINED TO WORK TOWARDS RECOVERY. HONING MACHINE OPERATOR SEMIAUTOMATIC PROVIDED SUPPORTIVE PRESENCE, FACILITATED INTERACTION WITH THERAPY ANIMAL. PT EXPRESSED GRATITUDE.
--- NOTE | 2025-04-15 17:33 | NUR ---
up in chair eating, walked earlier, c/o abd pain, medicated with Morphine 6mg IV
--- NOTE | 2025-04-15 17:52 | NUR ---
PATIENT IN BED AT THIS TIME. OPTOELECTRONICS ENGINEER CHARTED VITALS AND I&O'S, OPTOELECTRONICS ENGINEER ALSO PROVIDED CATHETER CARE. CALL [facility] WITHIN REACH, NO FURTHER NEEDS.
--- NOTE | 2025-04-15 18:51 | NUR ---
RESTING, EYS CLOSED, NO FURTHER C/O PAIN. HAS AMBULATED HALLWAYS SEVERAL TIMES, TOLERATED WELL, ON ROOM AIR, IVF INFUSING W/O PROBLEMS. SLIGHT SS DRAINAGE FROM UMBILICAL AREA SS IN PLACE. NO DC FROM OLD CELESTINO OR OSTOMY SITES. F/C PATENT. EDEMA TO LE , ELEVATED.
--- NOTE | 2025-04-15 19:36 | NUR ---
REPORT RECEIVED FROM DAY SHIFT RN. PATIENT RESTING IN BED. DENIES NEEDS AT THIS TIME. CALL LIGHT IN REACH.
--- NOTE | 2025-04-15 20:30 | NUR ---
CALL LIGHT ANSWERED. PATIENT REPORTS ABD PAIN. PRN PAIN MEDICATION ADMINISTERED. SCHEDULED MEDICATION ADMINISTERED. ASSESSMENT COMPLETE. MINIMAL DRY DRAINAGE NOTED ON ABD INCISIONS. CELIS CATH CARE COMPLETED INDEPENDENTLY BY PATIENT. PATIENT DENIES FURTHER NEEDS AT THIS TIME. CALL LIGHT IN REACH.
--- NOTE | 2025-04-15 20:35 | NUR ---
PATIENT AMBULATED 2 LAPS AROUND THE VIGIL USING MINIMAL SBA. PATIENT BACK TO BED. EDUARDO BELINDA.
--- NOTE | 2025-04-15 20:44 | NUR ---
pt RECENTLY COMPLETED AMBULATING X2 LAPS IN HALLWAY, TOLERATED WELL. VS AND I&O'S COMPLETE, pT HAS FRESH ICE WATER AT BEDSIDE, CALL LIGHT AND PERSONAL BELONGINGS IN REACH. SIG OTHER AT BEDSIDE.
--- NOTE | 2025-04-15 21:35 | NUR ---
THIS RN ROUNDING ON PATIENT. SEROSANGUINEOUS DRAINAGE NOTED TO DISTAL END OF MIDLINE INCISION. DRAINAGE NOTED TO GOWN, SATURATED APPROXIMATELY THE SIZE OF A PAPER PLATE. NEW GOWN PLACED. ABD SOFT TO TOUCH. NO NEW PAIN REPORTED. BOTTOM 2-3 STERI STRIPS SATURATED. ABD PAD PLACED FOR ANY NEW DRAINAGE. ATTEMPTED TO UPDATE MD SCOTT VIA CELLPHONE AND HOME PHONE AND UNABLE TO LEAVE VOICEMAIL BECAUSE PHONE CONTINUED TO RING. CEMENT MASON AWARE. 0 - WOUND CARE NURSE/HOUSE FLOAT MOHSEN IN TO SEE PATIENT. NO NEW DRAINAGE NOTED AT THIS TIME. ABD PAD REMAINS IN PLACE.
--- NOTE | 2025-04-15 22:29 | NUR ---
pt CALLED TO RM FOR IV ALARMING. THIS RN FINISHED pt IV ABX LINE. pt DENIES ANY OTHER NEEDS AT THIS TIME. CALL LIGHT WITHIN REACH.
[2025-04-16] VITALS (8 sets, daily range): BP systolic 112–119; BP diastolic 67–80
--- NOTE | 2025-04-16 00:13 | NUR ---
PATIENT RESTING IN BED, WATCHING HER PHONE. DENIES NEEDS AT THIS TIME. CALL LIGHT IN REACH.
--- NOTE | 2025-04-16 00:22 | NUR ---
NEW BAG IV FLUID INFUSING PER ORDER. NO FURTHER NEEDS. CALL LIGHT IN REACH.
--- NOTE | 2025-04-16 02:16 | NUR ---
ROUNDING ON PATIENT. PATIENT REQUESTING TO WALK HALLWAY. PATIENT WALKED 3 LAPS INDEPENDENTLY AROUND VIGIL. PATIENT BACK TO BED. PATIENT REPORTS 7/10 ABD PAIN. PRN PAIN MEDICATION ADMINISTERED. PATIENT DENIES FURTHER NEEDS AT THIS TIME. CALL LIGHT IN REACH.
--- NOTE | 2025-04-16 03:29 | NUR ---
PATIENT RESTING IN BED. DENIES NEEDS AT THIS TIME. CALL LIGHT IN REACH.
--- NOTE | 2025-04-16 05:43 | NUR ---
PATIENT RESTING IN BED WITH EYES CLOSED. VS AND I&Os OBTAINED AND RECORDED. SCHEDULED MEDICATION ADMINISTERED. PATIENT REPORTS 01/21 ABD PAIN. PRN PAIN MEDICATION ADMINISTERED PER PATIENT REQUEST. PATIENT DENIES FURTHER NEEDS AT THIS TIME. CALL LIGHT IN REACH.
--- NOTE | 2025-04-16 06:27 | NUR ---
MD SCOTT CALLED VIA TELEPHONE REGARDING PATIENTS MIDLINE INCISION FROM EARLIER IN THE EVENING. NO NEW ORDERS AT THIS TIME.
--- NOTE | 2025-04-16 07:34 | NUR ---
RECIEVED REPORT FROM KAY SALOMON. PT IS SITTING IN BED WITH EYES OPEN, RR EVEN AND UNLABORED. CALL LIGHT AND PERSONAL BELONGINGS ARE WITHIN REACH.
--- NOTE | 2025-04-16 08:26 | NUR ---
PATIENT TRANSFERED TO RECLINER WITH ASSIST, PROVIDED PATIENT WITH EDUCATION OF SPLINTING WITH PILLOW. PATIENT RATED PAIN 7/10 ON PAIN SCALE, REPORTS PAIN SHARP WHEN GETTING UP, AND THEN AT REST 5/10 ON PAIN SCALE, CONSTANT. PATIENT REQUESTING PAIN MEDICATION. PLANS TO AMBULATE IN VIGIL AFTER BREAKFAST. REPORTED ALTERATION IN COMFORT AND REQUEST FOR PAIN MEDICATION TO PRIMARY NURSE. CALL LIGHT WITHIN REACH. PROVIDED WARM BLANKET. NO OTHER NEEDS AT THIS TIME.
[2025-04-16] MEDS ORDERED: IBUPROFEN 600 MG TAB PO PRN (08:30)
[2025-04-16] MEDS ORDERED: FAMOTIDINE 20 MG TAB PO SCH (09:00)
--- NOTE | 2025-04-16 09:00 | NUR ---
PT SITTING UP IN CHAIR BY WINDOW. FULL ASSESSMENT COMPLETE AND DOCUMENTED IN CHART. DEPENDENT EDEMA NOTED TO BLE. CARDIAC WITH NORMAL S1, S2. LUNGS CLEAR THROUGHOUT. PT ON ROOM AIR. BOWEL TONES ARE ACTIVE. DRESSING TO ABDOMINAL MIDLINE INCISION WITH NO NEW DRAINAGE. CELIS CATHETER REMOVED AT THIS TIME. NO C/O NAUSEA. PT REPORTED 6/10 PAIN IN ABDOMEN AND LOWER BACK. PRN PAIN MEDICATIONS ADMINISTERED PER THE EMAR. PT IS NOW AMBULATING IN THE HALLWAY WITH [facility] CONCEPT ARTIST.
--- NOTE | 2025-04-16 09:33 | NUR ---
PT AMBULATING IN VIGIL WITH [facility] STUDENT NURSE AT THIS TIME.
--- NOTE | 2025-04-16 09:56 | NUR ---
INTO SEE PATIENT. PATIENT WITH PRIMARY RN. PATIENT STATES SHE HAS NO CM NEEDS AT THIS TIME.
--- NOTE | 2025-04-16 10:30 | NUR ---
PATIENT IS LYING IN BED WITH HOB ELEVATED AND TALKING ON THE PHONE. CALL LIGHT AND PERSONAL BELONGINGS ARE WITHIN REACH.
--- NOTE | 2025-04-16 10:38 | NUR ---
VISITED DURING SPIRITUAL CARE ROUNDS. PT APPEARED TO BE SLEEPING. DID NOT DISTURB. PROVIDED PRAYER.
--- NOTE | 2025-04-16 11:34 | NUR ---
TERESO CLARK, IN ROOM VISITING WITH PT AND BRAIDING PT'S HAIR. PT DENIES ANY NEEDS AT THIS TIME. CALL LIGHT AND PERSONAL BELONGINGS ARE WITHIN REACH.
--- NOTE | 2025-04-16 12:18 | NUR ---
PT SITTING UP IN BED, EATING LUNCH. CALL LIGHT AND PERSONAL BELONGINGS ARE WITHIN REACH.
--- NOTE | 2025-04-16 13:04 | NUR ---
PATIENT IS IN BED AT THIS TIME, INSURANCE ADJUSTOR ASSISTED PATIENT WITH BED BATH, INSURANCE ADJUSTOR CHARTED VITALS AND I&O'S, CALL LIGHT WITH INREACH AND NOTHING ELSE NEEDED AT THIS TIME.
--- NOTE | 2025-04-16 13:41 | NUR ---
PT IN BED WITH EYES CLOSED. RR EVEN AND UNLABORED. CALL LIGHT AND PERSONAL BELONGINGS ARE WITHIN REACH.
--- NOTE | 2025-04-16 14:10 | NUR ---
PT CALLED REPORTING A BOWEL MOVEMENT. THIS RN AND DEONDRE RN IN ROOM TO ASSIST PT. FRESH BRIEF AND BARRIER CREAM APPLIED. VS AND INTAKE AND OUTPUT VALUES TAKEN AND DOCUMENTED IN CHART. CELIS CARE COMPLETE AT THIS TIME. PT STATED NO FURTHER NEEDS. CALL LIGHT AND PERSONAL BELONGINGS WITHIN REACH.
--- NOTE | 2025-04-16 14:20 | NUR ---
PT AMBULATING THE HALLWAY AT THIS TIME.
--- NOTE | 2025-04-16 14:27 | NUR ---
PATIENT IN BED AT THIS TIME. PATIENT AND THIS PANEL FLOW MACHINE OPERATOR WALKED 3 LAPS AROUND HALLS. CALL LIGHT WITHIN REACH, NO FURTHER NEEDS.
--- NOTE | 2025-04-16 15:25 | NUR ---
PT VISITING WITH FAMILY IN ROOM. CALL LIGHT AND PERSONAL BELONGINGS WITHIN REACH.
--- NOTE | 2025-04-16 16:30 | NUR ---
PT SITTING IN BED WITH HEAD ELEVATED. PT REPORTS 5/10 PAIN, NOT REQUESTING MEDICATIONS AT THIS TIME. BOWEL TONES ACTIVE IN ALL FOUR QUADRANTS. IV DRESSING CLEAN DRY AND INTACT. NO SIGNS OF SWELLING, WARMTH, OR REDNESS. MIDLINE ABDOMINAL INCISION WITH NO NEW DRAINAGE - DRESSING DRY AND INTACT. PT NOW AMBULATING IN HALLWAY WITH TERESO TOLEDO.
--- NOTE | 2025-04-16 17:19 | NUR ---
ABD PAD ON TOP OF THE MIDLINE ABDOMINAL INCISION WITH MODERATE AMOUNT OF SEROSANGUINEOUS DRAINAGE NOTED. THIS RN CHANGED THE ABD PAD AND APPLIED NEW TAPE. PATIENT IS NOW AMBULATING TO THE BATHROOM WITH AIME MORALEZ. THIS RN CALLED . DID NOT ANSWER.
--- NOTE | 2025-04-16 18:03 | NUR ---
PT SITTING IN BED, TALKING WITH VISITORS. CALL LIGHT AND PERSONAL BELONGINGS ARE WITHIN REACH.
--- NOTE | 2025-04-16 18:32 | NUR ---
CALLED REGARDING THE MIDLINE ABDOMINAL ABD PAD BEING CHANGED. MD UNAVAILABLE AT THIS TIME.
--- NOTE | 2025-04-16 19:43 | NUR ---
REPORT RECEIVED FROM DAY SHIFT RN. PATIENT RESTING IN BED. DENIES NEEDS AT THIS TIME. CALL LIGHT IN REACH.
--- NOTE | 2025-04-16 21:20 | NUR ---
ANSWERED PATIENT CALL LIGHT FOR OUTPUT AND REQUESTED AMBULATE AROUND THE UNIT. PATIENT WALKS WITH STEADY GAIT, SCHEDULED MEDICATION GIVEN, TAKEN WITHOUT DIFFICULTY. PATIENT DENIES ANY OTHER NEEDS AT THIS TIME.
--- NOTE | 2025-04-16 22:23 | NUR ---
PATIENT AMBULATED 4 LAPS INDEPENDENTLY AROUND UNIT. PATIENT BACK TO BED AND REQUESTING PAIN MEDICATION. PRN PAIN MEDICATION ADMINISTERED. SMALL DRAINAGE NOTED ON MIDLINE INCISION, ABD PAD IN PLACE. PATIENT DENIES FURTHER NEEDS AT THIS TIME. BOWEL TONES ACTIVE. CALL LIGHT IN REACH.
--- NOTE | 2025-04-16 23:07 | NUR ---
PATIENT AMBULATED 5 LAPS AROUND THE HALLWAY. PATIENT EDUARDO WELL. PATIENT BACK TO BED. NO FURTHER NEEDS. CALL LIGHT IN REACH.
[2025-04-17] VITALS (10 sets, daily range): BP systolic 107–122; BP diastolic 59–71
--- NOTE | 2025-04-17 00:13 | NUR ---
PATIENT RESTING IN BED ON BACK. DENIES NEEDS AT THIS TIME. CALL LIGHT IN REACH. RESPIRATIONS EVEN AND UNLABORED.
--- NOTE | 2025-04-17 02:14 | NUR ---
ROUNDED ON PATIENT, LAYING ON BACK IN BED, RESTING WITH EYES CLOSED, AUDIBLE SNORING, REPSIRATIONS EVEN AND UNLABORED. NO NEEDS IDENTIFIED AT THIS TIME, CALL LIGHT IN REACH.
--- NOTE | 2025-04-17 04:30 | NUR ---
PATIENT RESTING IN BED. REQUESTING PRN PAIN MEDICATION. PRN PAIN MEDICATION ADMINISTERED. VS AND I&Os OBTAINED AND RECORDED. ABD INCISIONS C/D/I WITH MINIMAL DRY DRAINAGE. PATIENT DENIES FURTHER NEEDS AT THIS TIME. CALL LIGHT IN REACH.
--- NOTE | 2025-04-17 05:01 | NUR ---
ROUNDED ON PATIENT, LAYING IN BED WITH EYES OPEN, REQUESTING PRN PAIN MEDS FOR 5/10 PAIN. MORTIN GIVEN PER EMAR ORDER, VITALS AND I&O'S DOCUMENTED. PATIENT DENIES ANY FURTHER NEEDS AT THIS TIME. CALL LIGHT IN REACH.
--- NOTE | 2025-04-17 06:18 | NUR ---
ROUNDED ON PATIENT, SLEEPING ON BACK IN BED, EYES CLOSED, AUDIBLE SNORING, RESPIRATIONS EVEN AND UNLABORED, NO NEEDS IDENTIFIED AT THIS TIME, CALL LIGHT IN REACH.
--- NOTE | 2025-04-17 07:05 | NUR ---
RECIEVED REPORT FROM AIME VILLANUEVA, AND AIME ELDER. PT IS LAYING IN BED WITH EYES CLOSED. HOB IS ELEVATED AND RR IS EVEN AND UNLABORED. CALL LIGHT AND PERSONAL BELONGINGS ARE WITHIN REACH.
--- NOTE | 2025-04-17 07:43 | NUR ---
PATIENT WAS PROVIDED WITH A WARM WASH CLOTH AND BRUSHED TEETH. BEDDING WAS CHANGED. PATIENT WAS ASSISTED TO THE BATHROOM. PATIENT IS AMBULATING IN HALLS.
--- NOTE | 2025-04-17 08:23 | NUR ---
PT SITTING UP IN CHAIR WITH BREAKFAST TRAY. PT STATES THAT PAIN IS 5/10 AND IS NOT REQUESTING ANY PAIN MEDICATION AT THIS TIME. PT STATES SHE IS HAVING SOME NAUSEA DUE TO EATING BREAKFAST BUT IS NOT REQUESTING NAUSEA MEDICATION AT THIS TIME. FULL ASSESSMENT COMPLETE AND DOCUMENTED IN CHART. DEPENDENT EDEMA NOTED TO BLE. ABD PAD ON MIDLINE INCISION NOTED TO HAVE SEROSANGINEOUS DRAINAGE AND TWO STERI STRIPS HAD FALLEN OFF. FRESH ABD PAD APPLIED. MORNING MEDICATION ADMINISTERED PER THE EMAR. PT DENIES ANY NEEDS AT THIS TIME. CALL LIGHT AND PERSONAL BELONGINGS ARE WITHIN REACH.
--- NOTE | 2025-04-17 09:07 | NUR ---
PT RESTING IN BED WITH EYES CLOSED. RR EVEN AND UNLABORED. CALL LIGHT AND PERSONAL BELONGINGS ARE WITHIN REACH.
--- NOTE | 2025-04-17 09:24 | NUR ---
PATIENT LAYING IN BED. VITAL SIGNS AND I&OS WERE DONE. PATIENTS CALL LIGHT IS WITHIN REACH AND NO FURTHER NEEDS AT THIS TIME.
--- NOTE | 2025-04-17 10:13 | NUR ---
PATIENT IS LYING IN BED WITH HOB ELEVATED. PATIENT WITH EYES OPEN AND RESPIRATIONS ARE EVEN AND UNLABORED. PATIENT REPORTS GOING TO THE BATHROOM AT THIS TIME. PATIENT STATED NOT NEEDING ANY HELP. CALL LIGHT AND PERSONAL BELONGINGS ARE WITHIN REACH.
--- NOTE | 2025-04-17 11:27 | NUR ---
PT SITTING UP IN BED TALKING ON PHONE. CALL LIGHT AND PERSONAL BELONGINGS ARE WITHIN REACH.
--- NOTE | 2025-04-17 11:43 | NUR ---
PT AMBULATING HALLS AT THIS TIME.
--- NOTE | 2025-04-17 12:30 | NUR ---
PT BACK IN BED AFTER FINISHING LUNCH. CALL LIGHT AND PERSONAL BELONGINGS WITHIN REACH. FRESH SOCKS PROVIDED PER PT REQUEST. TERESO GARDNER, PROVIDED PT WITH FRESH ICE WATER. NO FURTHER NEEDS.
--- NOTE | 2025-04-17 14:18 | NUR ---
PT AMBULATING VIGIL AT THIS TIME.
--- NOTE | 2025-04-17 15:10 | NUR ---
THIS RN ROUNDED WITH AT THIS TIME.
[2025-04-17] MEDS ORDERED: POLYETHYLENE GLYCOL 3350 1 PACKET PO SCH (15:22)
[2025-04-17] MEDS ORDERED: MAGNESIUM HYDROXIDE 30 ML UDC PO ONE (15:30)
--- NOTE | 2025-04-17 16:24 | NUR ---
PT RESTING IN BED WITH EYES CLOSED. RR EVEN AND UNLABORED. CALL LIGHT AND PERSONAL BELONGINGS ARE WITHIN REACH.
--- NOTE | 2025-04-17 17:17 | NUR ---
PT CALLED REQUESTING AIME MENDOSA AND THIS RN'S PRESENCE. UPON ENTERING ROOM, PT WAS TEARFUL IN BED, EXPRESSING CONCERNS REGARDING DRAINAGE FROM MIDLINE INCISION. PT STATED THAT IN ADDITION TO THAT, SHE JUST "WASN'T FEELING GOOD." SMALL AMOUNT OF SEROSANGINEOUS DRAINAGE NOTED TO PT'S GOWN AND TO THE UMBILICUS. FRESH GOWN PROVIDED TO PT. FOLDED ABD PAD PLACED OVER UMBILICUS TO CATCH DRAINAGE. VS AND INTAKE AND OUTPUT VALUES TAKEN AND DOCUMENTED IN CHART. PT REQUESTING TO NOT TAKE HER SHOWER AT THIS TIME. CALL LIGHT AND PERSONAL BELONGINGS ARE WITHIN REACH.
--- NOTE | 2025-04-17 17:42 | NUR ---
PATIENT REQUESTED SHOWER AFTER DINNER. PATIENT WAS OFFERED SHOWER AFTER DINNER BUT DECLINED DUE TO BEING TIRED. PATIENT IS GOING TO CALL WHEN READY FOR SHOWER.
--- NOTE | 2025-04-17 18:08 | NUR ---
PT IN BED, TALKING ON PHONE. CALL LIGHT AND PERSONAL BELONGINGS ARE WITHIN REACH.
--- NOTE | 2025-04-17 21:16 | NUR ---
PATIENT IN BED AFTER HER SHOWER. TERESO BUCHANAN HELPED TO DRY ANY WET SPOTS ON THE FLOOR AFTER HER SHOWER TO PROVIDE PATIENT SAFETY. TERESO BUCHANAN CONVERSATED WITH PAATIENT IN THE ROOM. WHEN INTERACTION WAS OVER PATIENT WAS LEFT WITH CALL LIGHT WITHIN REACH, NO FURTHER NEEDS.
--- NOTE | 2025-04-17 21:27 | NUR ---
Patient showered this evening, she tolerated well independently. Patient denies passing of stool thus far. Admin ibuporfen 600mg po with a snack for reported 6/10 abdominal pain. Patient encouraged to rest, fresh water provided.
--- NOTE | 2025-04-17 22:35 | NUR ---
Inferior abdominal wound site is draining small amounts of serosang drainage. Pau pad placed in underwear to catch drainage. Per dayshift report, wound site has been leaking. Patient ambulated in hallway as well, even gait noted.
[2025-04-18] VITALS (10 sets, daily range): BP systolic 109–124; BP diastolic 55–72
--- NOTE | 2025-04-18 01:50 | NUR ---
Patient awake ambulating in hallway, no needs per pt report.
--- NOTE | 2025-04-18 03:46 | NUR ---
PT AMB IN VIGIL INDEPENDENTLY. AT NURSES STATION TO REPORTS ABD/HEADACHE PAIN. PRN FOR PAIN ADMIN PER EMAR. PRIMARY RN AWARE.
--- NOTE | 2025-04-18 07:00 | NUR ---
REPORT RECEIVED FROM COMMANDER POLICE RESERVES AIME ANDINO. PATIENT IS LYING IN BED WITH EYES CLOSED AND RESPIRATIONS ARE EVEN AND UNLABORED. CALL LIGHT AND PERSONAL BELONGINGS ARE WITHIN REACH.
--- NOTE | 2025-04-18 08:59 | NUR ---
hourly rounding. patient asked for a new gown, gown was given. no further request from patient
--- NOTE | 2025-04-18 09:24 | NUR ---
PATIENT IS LYING IN BED ON HER LEFT SIDE WITH EYES OPEN AND RESPIRATIONS ARE EVEN AND UNLABORED. PATIENT IS WATCHING TV ON HER PHONE. CALL LIGHT AND PERSONAL BELONGINGS ARE WITHIN REACH.
--- NOTE | 2025-04-18 10:00 | NUR ---
PATIENT IS AMBULATING IN THE HALLWAY INDEPENDENTLY AT THIS TIME.
--- NOTE | 2025-04-18 11:13 | NUR ---
PATIENT IS SITTING UPRIGHT IN THE CHAIR. PATIENT WITH EYES OPEN AND RESPIRATIONS ARE EVEN AND UNLABORED. I CARE CARDS PROVIDED TO THE PATIENT PER PATIENT REQUEST. TERESO MAYORGA IS IN THE ROOM AND CHANGING THE BED LINENS AT THIS TIME. PATIENT STATED NO FURTHER NEEDS AT THIS TIME. CALL LIGHT AND PERSONAL BELONGINGS ARE WITHIN REACH.
--- NOTE | 2025-04-18 11:14 | NUR ---
HOURLY ROUNDING.PATIENT WALKING LAPS AROUND THE NURSE STATION. PATIENT REQUEST BABY WIPES, WIPES GIVEN. NO FURTHER REQUEST FROM PATIENT
--- NOTE | 2025-04-18 12:21 | NUR ---
PATIENT IS LYING IN BED WITH EYES OPEN AND RESPIRATIONS ARE EVEN AND UNLABORED. PATIENT STATED NO FURTHER NEEDS AT THIS TIME. CALL LIGHT AND PERSONAL BELONGINGS ARE WITHIN REACH.
--- NOTE | 2025-04-18 13:08 | NUR ---
PATIENT IS LYING IN BED WITH HOB ELEVATED. PATIENT WITH EYES OPEN AND IS EATING LUNCH. PATIENT IS SPEAKING WITH TWO VISITORS WHO ARE IN THE ROOM. CALL LIGHT AND PERSONAL BELONGINGS ARE WITHIN REACH.
--- NOTE | 2025-04-18 13:12 | NUR ---
HOURLY ROUNDING. PATIENT VISITING WITH FAMILY, NO REQUEST AT THIS TIME
--- NOTE | 2025-04-18 15:09 | NUR ---
PATIENT IS AMBULATING IN THE HALLWAY AT THIS TIME. PATIENT IS TOLERATING WELL.
--- NOTE | 2025-04-18 16:14 | NUR ---
PATIENT IS LYING IN BED ON HER RIGHT SIDE WITH EYES OPEN AND RESPIRATIONS ARE EVEN AND UNLABORED. PATIENT REPORTED PAIN 4/10 IN THE ABDOMEN. PATIENT IS WATCHING SOMETHING ON HER PHONE. PATIENT STATED NO FURTHER NEEDS AT THIS TIME. CALL LIGHT AND PERSONAL BELONGINGS ARE WITHIN REACH.
--- NOTE | 2025-04-18 16:43 | NUR ---
PT TOOK A PARTIAL SHOWER, SHE URINATED A LITTLE SHE TRIED TO GET TO THE TOILET. SO PARTIAL SHOWER, GOWN CHANGE, NEW SOCKS AND WILD CARE. THIS LINUX KERNEL DEVELOPER CLEANED UP THE BATHROOM FOLLOWING PT'S SHOWER. ALSO EMPTIED TRASH AND CLEANED UP THE PT'S ROOM. CALL LIGHT WITHIN REACH, AND FRESH ICE WATER ON TABLE WITHIN REACH OF PT. PT REPORTS NEEDING NOTHING MORE AT THIS TIME.
--- NOTE | 2025-04-18 17:04 | NUR ---
PATIENT IS AMBULATING IN THE HALLWAY INDEPENDENTLY AT THIS TIME. PATIENT IS TOLERATING WELL.
--- NOTE | 2025-04-18 17:54 | NUR ---
HOURLY ROUNDING. PATIENT SLEEPING IN BED, WOKE PATIENT FOR VITALS. NO REQUEST AT THIS TIME FOR PATIENT. CALL LIGHT HAS BEEN PLACED WITHIN REACH
--- NOTE | 2025-04-18 18:01 | NUR ---
PATIENT IS LYING IN BED ON HER RIGHT SIDE WITH EYES CLOSED AND RESPIRATIONS ARE EVEN AND UNLABORED. CALL LIGHT AND PERSONAL BELONGINGS ARE WITHIN REACH.
--- NOTE | 2025-04-18 18:35 | NUR ---
PATIENT IS AMBULATING IN THE HALLWAY INDEPENDENTLY AT THIS TIME.
--- NOTE | 2025-04-18 20:00 | NUR ---
Patient awake, alert and oriented x3, no acute distress. Patient reports tolerable pain, no nausea, she is passing flatus but no bm yet. Patient walking in hallway frequently. No current needs, call light within reach.
--- NOTE | 2025-04-18 20:55 | NUR ---
Admin ibuprofen 600mg po for reports of 4/10 abdominal pain.
--- NOTE | 2025-04-18 20:56 | NUR ---
VITALS DONE, PATIENT SITTING IN BED AND ABLE TO MAKE NEEDS KNOWN.
--- NOTE | 2025-04-18 23:13 | NUR ---
Patient resting in bed, eyes closed, respirations even and non labored.
[2025-04-19] VITALS (10 sets, daily range): BP systolic 110–132; BP diastolic 69–82
--- NOTE | 2025-04-19 00:15 | NUR ---
REPORT RECIEVED FROM AIME ANDINO. PATIENT RESTING IN BED ON HER RIGHT SIDE WITH HER EYES CLOSED. EVEN AND UNLABORED RESPIRATIONS NOTED. CALL LIGHT AND PERSONAL BELONGINGS ARE WITHIN REACH.
--- NOTE | 2025-04-19 02:23 | NUR ---
PATIENT RESTING IN BED ON HER BACK WITH HER EYES CLOSED. EVEN AND UNLABORED RESPIRATIONS NOTED. CALL LIGHT AND PERSONAL BELONGINGS ARE WITHIN REACH.
--- NOTE | 2025-04-19 04:32 | NUR ---
PATIENT RESTING IN BED ON HER BACK WITH HER EYES CLOSED AND HER MOUTH OPEN. EVEN AND UNLABORED RESPIRATIONS NOTED. CALL LIGHT AND PERSONAL BELONGINGS ARE WTIHIN REACH.
--- NOTE | 2025-04-19 05:30 | NUR ---
PATIENT RESTING IN BED WITH HER EYES CLOSED. EVEN AND UNLABORED RESPIRATIONS NOTED. CALL LIGHT AND PERSONAL BELONGINGS ARE WITHIN REACH.
--- NOTE | 2025-04-19 06:15 | NUR ---
PATIENT RESTING IN BED WITH HER EYES CLOSED. EVEN AND UNLABORED RESPIRATIONS NOTED. CALL LIGHT AND PERSONAL BELONGINGS ARE WITHIN REACH.
--- NOTE | 2025-04-19 06:40 | NUR ---
PATIENT UP WALKING THE HALLS AND REQUESTING HOT WATER. HOT WATER PROVIDED FOR PATIENT'S TEA. PATIENT'S WOUND ASSESSED. LUQ (OLD OSTOMY SITE) NOTED TO BE SLIGHTLY OPEN. SCANT DRAINAGE NOTED, BLEEDING CONTROLLED. DR SCOTT NOTIFIED, MD STATES "NO STERI STRIPS, LEAVE IT OPEN, LET IT DRAIN IF IT WANTS TO DRAIN". ALSO STATES PATIENT IS STILL OKAY TO SHOWER AND RN'S OKAY TO CLEANSE WOUND NEEDED. MD WITH NO FURTHER ORDER AT THIS TIME. CALL ENDED. PATIENT'S WOUNDS CLEANSED WITH WOUND CLEANSER AND GAUZE. PATIENT WITHOUT FURTHER NEEDS AT THIS TIME. CALL LIGHT AND PERSONAL BELONGINGS ARE WITHIN REACH.
--- NOTE | 2025-04-19 07:35 | NUR ---
PT AWAKE AND INTERACTIVE AT TIME OF SHIFT REPORT. UP AMBULATING THE ROOM INDEPENDANTLY. DENIES PAIN OR DISCOMFORTS. FRESH H20 AND PERSONAL CARE ITEMS PROVIDED
--- NOTE | 2025-04-19 07:59 | NUR ---
HOURLY ROUNDING. BOARD HAS BEEN UPDATED, PATIENT WAS IN RECLINER CHAIR. NO REQUEST PATIENT WALKINGLAPS AROUND THE NURSE STATION. PATIENT IS WALKING INDEPENDENTLY. NO REQUEST FROM PATIENT AT THIS TIME
--- NOTE | 2025-04-19 08:01 | NUR ---
UR CONCURRENT CLINICAL REVIEW: MCG-PER MCG REVIEW MEETS INPT FOR GEN TRICE GRG FOR TAKEDOWN OF COLOSTOMY WITH MONITORING AND SERIAL LABS MONITOR BOWEL FUNCTION BASIC DMAP INPT 04/13/25 @ 1210 ORDER MATCHES [facility] DC TO HOME TODAY 04/24/2025
--- NOTE | 2025-04-19 08:09 | NUR ---
PT UP AMBULATING LAPS IN THE VIGIL STATES SHE IS ANXIOUS FOR HER BOWELS TO MOVE AND HER TO BE DC'D. PT REPORTS PASSING GAS FEELS LIKE "THINGS ARE WORKING" DENIES DISCOMFORT AGREES SHE IS READY FOR MORNING MEAL
--- NOTE | 2025-04-19 09:02 | NUR ---
HOURLY ROUNDING. PATIENT WALKING LAPS HOPING TO HAVE BM NO SUCESS ON BM YET. VITALS COMPLETE, CALL LIGHT PLACED WITHIN REACH
--- NOTE | 2025-04-19 10:17 | NUR ---
DC SUPERCHARGER MECHANIC NOTIFIED OF PT CONCERNS OF POWER CUT OFF AND NEED OF SHORT TERM DISABILTY IF AVAILABLE. SHE IS GOING IN TO ASSIST PT WITH CONTACTS AND REPORTS SHE ALREADY CALLED THE [facility]
--- NOTE | 2025-04-19 10:47 | NUR ---
DC BANQUET LINE COOK RETURNS TO THE ROOM TO DISCUSS ASSIST AND SUPPLY INFORMATION FOR PT. ALL QUESTIONS ANSWERED
--- NOTE | 2025-04-19 10:49 | NUR ---
INTO TO SEE PATIENT. PATIENT TEARFUL ABOUT HER ELECTRICITY BEING SHUT OFF. SHE STATED IT WAS SUPPOSED TO BE TURNED ON LAST WEEK. SHE STATES "THE [employer] [employer] LOST HER LEASE AGREEMENT AND THATS WHY THEY WILL NOT TURN IT BACK ON." CALLED [facility] LET HER KNOW SHE HAD BEEN HOSPITALIZED THEY SAID THEY WOULD REACH BACK OUT TO HER AND SPEAK TO HER ABOUT EMERGENCY FUNDS. ALSO GAVE THE PATIENT RESOURCES FOR [facility], [facility] AND [place] PAID LEAVE. PATIENT HAS NOT WORKED IN THE LAST YEAR BUT SHE DID SAY SHE WOULD REACH OUT TO [facility] AND [facility] FOR MORE ASSISTANCE. NO FUTHER CM OR QUESTIONS AT THIS TIME.
--- NOTE | 2025-04-19 11:00 | NUR ---
HOURLY ROUNDING. PATIENT SHAMPOOED HAIR, WASHED FACE, DID ALOT OF AM CARE ADLS. NO REQUEST FROM PATIENT AT THIS TIME
--- NOTE | 2025-04-19 11:01 | NUR ---
PT AMBULATING THE HALLS AGAIN
--- NOTE | 2025-04-19 12:09 | NUR ---
PT EATS A SMALL NOON MEAL THEN LAYS DOWN TO REST. SHE HAS AMBULATED SEVERAL LAPS THIS SHIFT AND STATES SHE WILL WALK AGAIN WHEN SHE GETS UP
--- NOTE | 2025-04-19 13:08 | NUR ---
HOURLY ROUNDING. PATIENT WALKING LAPS, NO REQUEST AT THIS TIME
--- NOTE | 2025-04-19 13:30 | NUR ---
PT AGREES DC NOC ENGINEER WAS HELPFUL, SHE IS WAITING ON A CALL FROM THE COMANCHE AT THIS TIME. DENIES FUTHER NEEDS
--- NOTE | 2025-04-19 14:23 | NUR ---
PT AMBULATING THE HALLS AGAIN
--- NOTE | 2025-04-19 14:40 | NUR ---
HOURLY ROUNDING. PATIENT IS VISTING WITH HER AUNT, NO REQUEST FROM PATIENT AT THIS TIME
--- NOTE | 2025-04-19 16:30 | NUR ---
PT AMBULATING THE VIGIL STILL HAS NOT PASSED STOOL TODAY. HAD MIRILAX WELL APPLESAUCE WHICH SHE REPORTS WORKS FOR HER. SHE DENIES DISCOMFORTS OR SENSATION OF CONSTIPATION JUST STATES SHE WANTS TO KNOW EVERYTHING IS WORKING.
--- NOTE | 2025-04-19 17:55 | NUR ---
PT TO THE SHOWER PERSONAL CARE ITEMS PROVIDED DENIES NEED OF ASSIST AGREES TO USE CALL CORD IF NEEDED.
--- NOTE | 2025-04-19 18:01 | NUR ---
HOURLY ROUNDING. VITALS ARE COMPLETED PATIENT IS NOW TAKING A SHOWER. PATIENT IS INDEPENDENT
--- NOTE | 2025-04-19 18:16 | NUR ---
PT CONTINUES IN THE SHOWER DR SCOTT CALLS FOR UPDATE ON HER.
--- NOTE | 2025-04-19 19:10 | NUR ---
REPORT RECEIVED FROM TASHI SALOMON. WALKING LAPS IN THE VIGIL. BOARD UPDATED. pt DENIES ANY OTHER NEEDS AT THIS TIME. CALL LIGHT WITHIN REACH.
--- NOTE | 2025-04-19 20:56 | NUR ---
PT OOB AMBULATING HALLS, WENT TO EDGE OF BED FOR VITALS.TOOK VITALS, EMPTIED HAT AND REFILLED WATER.
--- NOTE | 2025-04-19 21:10 | NUR ---
ASSESSMENT DONE. pt RESTING IN THE BED. BOWEL TONE ACTIVE. pt STATES SHE HAS BEEN PASSING GAS. IV ASSESSED, WNL. pt DENIES ANY OTHER NEEDS AT THIS TIME. CALL LIGHT WITHIN REACH. MIDLINE INCISION DRY AND INTACT. OSTOMY SITE INTACT.
--- NOTE | 2025-04-19 23:00 | NUR ---
pt UP WALKING LAPS AROUND MED/SURG. pt DENIES ANY NEEDS OR PAIN AT THIS TIME. pt STATES SHE IS TRYING TO GET HER BOWELS TO MOVE.
--- NOTE | 2025-04-20 00:25 | NUR ---
pt HAD A BM AND C/O 5/10 PAIN AND CRAMPING IN HER STOMACH. pt DENIES ANY OTHER NEEDS AT THIS TIME. CALL LIGHT WITHIN REACH.
--- NOTE | 2025-04-20 00:57 | NUR ---
pt CAME TO THE NURSES STATION TO REQUEST HOT CHOCOLATE. HOT CHOCOLATE PROVIDED. pt DENIES ANY OTHER NEEDS AT THIS TIME. CALL LIGHT WITHIN REACH.
--- NOTE | 2025-04-20 03:11 | NUR ---
pt RESTING IN THE BED WITH EYES CLOSED. RR EVEN AND UNLABORED. CALL LIGHT WITHIN REACH.
--- NOTE | 2025-04-20 04:47 | NUR ---
pt SITTING IN THE CHAIR RESTING. pt DENIES ANY NEEDS AT THIS TIME. CALL LIGHT WITHIN REACH.
[2025-04-20 05:12] VITALS: BP 127/81
--- NOTE | 2025-04-20 05:58 | NUR ---
VITAL SIGNS DONE. pt REQUESTED SNACK AND HEAT PACK. PUDDING AND HEAT PACK PROVIDED. pt DENIES ANY OTHER NEEDS AT THIS TIME. CALL LIGHT WITHIN REACH.
--- NOTE | 2025-04-20 07:27 | NUR ---
PT UP AMBULATING THE VIGIL AT TIME OF SHIFT REPORT. REPORTS HER BOWELS HAVE MOVED 3X SINCE YESTERDAY. SHE FEELS WELL AND LOOKS FORWARD TO GOING HOME TODAY.
--- NOTE | 2025-04-20 08:12 | NUR ---
PT HAS BEEN UP AMBULATING ALL MORNING. ATE BREAKFAST, RESTING IN BED NOW. PT DECLINES MIRALAX STATING HER STOOLS ARE LOOSE.
--- NOTE | 2025-04-20 09:45 | NUR ---
In and spoke with Tamela and recieved an update of the improvements in her life over the last year. Pt feels she is doing a lot bed. She now has stable housing. Her power was shut off, but turned back on today. She had assistance from her rastafari and now the kaguyuk. She denies further needs.
--- NOTE | 2025-04-20 09:48 | NUR ---
DISCUSSED BOWEL MANAGEMENT AT LENGTH PT VERBALIZES UNDERSTANDING. PT UP INDEPENDANTLY TAKES A SHOWER AND DOES SELF CARES. DC PILL MAKER IN SPEAKING WITH HER AT THIS TIME
[2025-04-20 10:45] VITALS: BP 119/71
--- NOTE | 2025-04-20 10:48 | NUR ---
THIS BLOOD BANK CALENDAR CONTROL CLERK IN TO DO VITALS AND I&O'S, DONE AND CHARTED. PATIENT SHOWERED INDEPENDENTLY. PATIENT DID AM CARE AND ORAL CARE AT SINK. CALL LIGHT IN REACH. NO FURTHER NEEDS AT THIS TIME.
--- NOTE | 2025-04-20 11:03 | NUR ---
PT MEETS WITH DC COMMUNITY MENTAL HEALTH SOCIAL WORKER ALL CONCERNS HAVE BEEN ADDRESSED, PT LOOKING FORWARD TO DC .
--- NOTE | 2025-04-20 11:21 | NUR ---
DR SCOTT IN TO SEE PT ANSWERS HER CONCERNS R/T WOUND ALL QUESTIONS ANSWERED. PT AGREES SHE IS READY FOR DC.
--- NOTE | 2025-04-20 11:22 | NUR ---
ENCOUNTERED PATIENT IN HALLWAY SHE IS PREPARING TO DISCHARGE. PT IN GOOD SPIRITS, LOOKING FORWARD TO IMMINENT DISCHARGE, NO NEEDS. PUBLIC POLICY PROFESSOR PROVIDED SUPPORTIVE PRESENCE, PRAYER, FACILITATED INTERACTION WITH THERAPY ANIMAL.
[2025-04-20] MEDS ORDERED: IBUPROFEN600 MG PO (11:27)
[2025-04-20] MEDS ORDERED: TYLENOL EXTRA500 MG PO (11:28)
[2025-04-20 12:12] VITALS: BP 118/75
--- NOTE | 2025-04-21 09:34 | DS ---
[facility] [address] [place], [place] [address] Signed ADMISSION DATE: 04/13/2025 DISCHARGE DATE: 04/20/2025 REASON FOR ADMISSION: History of Valdo's procedure for perforated sigmoid colon (stercoral erosion with perforation). HISTORY: This 44-year-old Maur[place] woman has longstanding history of substance abuse including opiates. Last September, she had a fair amount of fentanyl as part of her abuse substances and have profound constipation. Ultimately developing a stercoral perforation of the sigmoid colon. On September 30, 2024, she underwent emergency partial sigmoid resection with end colostomy. She has recovered fully from that and now is in a drug program. She is here for takedown colostomy PERTINENT PHYSICAL EXAMINATION: GENERAL: Showed a somewhat obese Maur[place] woman who is pleasant, alert and nontoxic. NECK: Trachea is midline. CHEST: Clear. HEART: Regular without murmur. ABDOMEN: Soft and easily palpated. There is a well-functioning left-sided end colostomy noted. HOSPITAL COURSE: On April 13, 2025, she underwent takedown of the colostomy. Mobilization of the left colon and portions of sigmoid and distal sigmoid were undertaken and end-to-end colocolostomy was performed. A drain was left in place. She had a TAP block postoperatively for postoperative analgesic benefit. She had progressive improvement over time starting on liquids promptly and advancing them relatively slowly based on her tolerance. By day of discharge, she is ambulating well, tolerating a regular diet and having liquid bowel movements. She was started on MiraLAX on a daily basis and initially given a single dose of milk of magnesia. The former colostomy did show some drainage, but no erythema or tenderness of the wound itself. The midline incision is healing well. In followup she will see me back in four weeks. She is to lift no more than 20 pounds for the next four weeks and is to walk on a daily basis. She should shower routinely and cleanse the former ostomy site with soapy water. She will leave Steri-Strips in place. Electronically Signed By: NIKOLE SCOTT MD 04/21/25 0934 PATIENT NAME: SHAMA MERLOS DISCHARGE SUMMARY DATE OF : 80 REPORT #: [id number] PHYSICIAN: NIKOLE SCOTT MD PCP: RON ROWLAND MD REPORT IS CONFIDENTIAL AND NOT TO BE RELEASED WITHOUT AUTHORIZATION [facility] [address] [place], [place] [address] Signed DISCHARGE MEDICATIONS: 1. Will include ibuprofen 600 mg p.o. q.6 hours as needed for pain, #60, no refill. 2. Tylenol Extra Strength 500 mg two tablets p.o. q.6 hours as needed for pain, #60, no refill. She will continue her home medications which include buprenorphine naloxone 8 mg/2 mg film 0.5 to 1 each daily for opiate cravings. 3. Buprenorphine Sublocade 100 mg/0.5 mL, 100 mg subcutaneously monthly. 4. Polyethylene glycol, MiraLAX 17 g p.o. daily. DISCHARGE DIAGNOSES: 1. History of stercoral perforation of sigmoid colon related to chronic constipation secondary to opiate abuse problem, status post Valdo's procedure in September 2024. 2. Takedown of colostomy with end-to-end colocolostomy on April 13, 2025. 3. History of substance abuse. 4. On depot buprenorphine therapy. 5. Obesity. 6. History of hysterectomy and pelvic floor dysfunction. MD PRASHANT Genao/MODL /[id number] cc: Dr. Rowland [facility] Copies: ~ Electronically Signed By: NIKOLE SCOTT MD 04/21/25 0934 PATIENT NAME: SHAMA MERLOS DISCHARGE SUMMARY DATE OF : 80 REPORT #: [id number] PHYSICIAN: NIKOLE SCOTT MD PCP: RON ROWLAND MD REPORT IS CONFIDENTIAL AND NOT TO BE RELEASED WITHOUT AUTHORIZATION
== END 2025-04-20 12:18 | disposition home or self-care (01) | DRG 330 ==
LOC: MS 04-13 06:03 → DSVR 04-13 06:03 → MS 04-13 07:30
PROVIDERS: ADMIT Surgery; ATTEND Surgery
PROC: 0T9B70Z Drainage of Bladder with Drainage Device, Via Natural or Artificial Opening (ICD-10-PCS; 2025-04-13)
PROC: 0DBN0ZZ Excision of Sigmoid Colon, Open Approach (ICD-10-PCS; principal; 2025-04-13 07:30)
DX: Z43.3 Encounter for attention to colostomy (principal); Q43.8 Other specified congenital malformations of intestine; E66.9 Obesity, unspecified; K66.0 Peritoneal adhesions (postprocedural) (postinfection); F11.10 Opioid abuse, uncomplicated; K59.00 Constipation, unspecified; Z90.49 Acquired absence of other specified parts of digestive tract; Z90.710 Acquired absence of both cervix and uterus; Z68.29 Body mass index [BMI] 29.0-29.9, adult; Z88.8 Allergy status to other drugs, medicaments and biological substances
CPT/HCPCS: 00840; 36415; 76942; 80048; 85025; 88304; 88307; 93005; 93010; A9270; J0131; J0688; J1100; J1644; J1885; J2003; J2250; J2270; J2405; J2704; J2795; J3010; J3490; J7121

== ENCOUNTER 2025-04-27 07:29 | Emergency (ER) | payer OTHER ==
[~2025-04-27] VITALS: Ht 170.2 cm; Wt 85.1 kg
--- OUTSIDE RECORDS SUMMARY | ~2025-04-27 | XMS | Continuity of Care Document ---
Demographics + + + | Address | [address] | | | [place] [address] | + + + | Preferred Language | Unknown | + + + | Marital Status | | + + + | Moravian Affiliation | Unknown | + + + | Race | or | + + + | Ethnic Group | Not or | + + + Author + + + | Author | [facility] | + + + | Organization | [facility] | + + + | Address | [address] | | | [place] [address] | + + + | Phone | | + + + Care Team Providers + + + + | Care Data Warehousing Manager Name | Role | Phone | + + + + Unavailable | Unavailable | + + + + Unavailable | Unavailable | + + + + Unavailable | Unavailable | + + + + Allergies No information. Encounters No information. Functional Status No information. Immunizations No information. Medications + + + + | date | description | facility | + + + + | (no date) | Buprenorphine HCl/Naloxone | [facility] | | | HCl | [facility] | + + + + | (no date) | SENNOSIDES/DOCUSATE SODIUM | [facility] | | | | [facility] | + + + + | (no date) | SENNOSIDES/DOCUSATE SODIUM | [facility] | | | | [facility] | + + + + | (no date) | ACETAMINOPHEN | [facility] | | | | [facility] | + + + + | (no date) | ACETAMINOPHEN | [facility] | | | | [facility] | + + + + | (no date) | Ibuprofen | [facility] | | | | [facility] | + + + + | (no date) | Ibuprofen | [facility] | | | | [facility] | + + + + | (no date) | Cyanocobalamin (Vitamin | [facility] | | | B-12) | [facility] | + + + + | (no date) | Cyanocobalamin (Vitamin | [facility] | | | B-12) | [facility] | + + + + | (no date) | POLYETHYLENE GLYCOL 3350 | [facility] | | | | [facility] | + + + + | (no date) | POLYETHYLENE GLYCOL 3350 | [facility] | | | | [facility] | + + + + Problems + + + + | date | description | facility | + + + + | 2025-02-22 00:00 | Patient left without being | [facility] | | | seen | [facility] | + + + + | 2025-02-22 00:00 | Patient left without being | [facility] | | | seen | [facility] | + + + + Procedures + + + + | date | description | facility | + + + + | 2025-03-09 00:00 | Colonoscopy with biopsy of | [facility] | | | colon | [facility] | + + + + | 2025-03-09 00:00 | Colonoscopy with biopsy of | [facility] | | | colon | [facility] | + + + + Results/Labs No information. Social History +--------+ + + | date | description | facility | +--------+ + + Vital Signs + + + +---------+ | date | measurement | value | units | + + + +---------+ | 2025-02-22 00:00 | BMI | 29.3 | kg/m2 | + + + +---------+ | 2025-02-22 00:00 | BP_diastolic | 00 | mmHg | + + + +---------+ | 2025-02-22 00:00 | BP_systolic | 00 | mmHg | + + + +---------+ | 2025-02-22 00:00 | heart_rate | 00 | /min | + + + +---------+ | 2025-02-22 00:00 | height_metric | 170.18 | cm | + + + +---------+ | 2025-02-22 00:00 | height_standard | 67 | in | + + + +---------+ | 2025-02-22 00:00 | o2_saturation | 00 | % | + + + +---------+ | 2025-02-22 00:00 | respiration_rate | 00 | /min | + + + +---------+ | 2025-02-22 00:00 | temperature_metric | -17.78 | C | | | | | | + + + +---------+ | 2025-02-22 00:00 | | 0 | F | | | temperature_standar | | | | | d | | | + + + +---------+ | 2025-02-22 00:00 | weight_metric | 85 | kg | + + + +---------+ | 2025-02-22 00:00 | weight_standard | 187.39 | lb | + + + +---------+ | 2025-02-22 00:00 | weight_standard | 187.393 | lb | + + + +---------+ | 2025-03-08 00:00 | BMI | 29.9 | kg/m2 | + + + +---------+ | 2025-03-08 00:00 | height_metric | 170.18 | cm | + + + +---------+ | 2025-03-08 00:00 | height_standard | 67 | in | + + + +---------+ | 2025-03-08 00:00 | weight_metric | 86.636 | kg | + + + +---------+ | 2025-03-08 00:00 | weight_standard | 191.000 | lb | + + + +---------+ | 2025-03-09 00:00 | BP_diastolic | 69 | mmHg | + + + +---------+ | 2025-03-09 00:00 | BP_systolic | 110 | mmHg | + + + +---------+ | 2025-03-09 00:00 | heart_rate | 72 | /min | + + + +---------+ | 2025-03-09 00:00 | o2_saturation | 100 | % | + + + +---------+ | 2025-03-09 00:00 | respiration_rate | 16 | /min | + + + +---------+ | 2025-03-09 00:00 | | 98.9 | F | | | temperature_standar | | | | | d | | | + + + +---------+"
--- OUTSIDE RECORDS SUMMARY | 2025-04-27 07:36 | XMS ---
PreManage Notification: SHAMA MERLOS Security Senior Manager Mmcoe Events No recent Security Events currently on file CRITERIA MET - Group Notification CARE PROVIDERS [facility] 02/25/2025-Current PHONE: Unknown Mumtaz has no Care Guidelines for this patient. Stephen VISIT COUNT (12 MO.) 6 ONIEL Downing TOTAL 6 NOTE: Visits indicate total known visits. ED/UCC VISIT TRACKING (12 MO.) 04/27/2025 07:29 [facility] [place] TYPE: Emergency COMPLAINT: - LOSS OF APPETITE 02/22/2025 12:48 ONIEL [facility] [place] TYPE: Emergency COMPLAINT: - WOUND CHECK 01/14/2025 19:59 ONIEL [facility] [place] TYPE: Emergency COMPLAINT: - ABDOM PAIN DIAGNOSES: - Allergy status to other drugs, medicaments and biological substances - medical terminologist (current) use of antibiotics - Other acute postprocedural pain - Other complications of colostomy - Other retirement (current) drug therapy - Unspecified abdominal pain 11/06/2024 15:01 ONIEL [place]ia [facility] [place] TYPE: Emergency COMPLAINT: - LEG SWELLING DIAGNOSES: - Allergy status to other drugs, medicaments and biological substances - Localized edema - Other petroleum terminal plant operator (current) drug therapy 10/09/2024 17:06 [place] [facility] [place] TYPE: Emergency COMPLAINT: - ABDOMINAL PAIN 06/02/2024 22:21 [place] TYPE: Emergency COMPLAINT: - POSS UTI DIAGNOSES: - Allergy status to other drugs, medicaments and biological substances - Dysuria - Other retirement (current) drug therapy - Retention of urine, unspecified INPATIENT VISIT TRACKING (12 MO.) 04/13/2025 06:03 ONIEL [facility] [place] TYPE: Medical Surgical COMPLAINT: - TAKE DOWN COLECTOMY DIAGNOSES: - Acquired absence of both cervix and uterus - Acquired absence of other specified parts of digestive tract - Allergy status to other drugs, medicaments and biological substances - Body mass index [BMI] 29.0-29.9, adult - Constipation, unspecified - Encounter for attention to colostomy - Obesity, unspecified - Opioid abuse, uncomplicated - Other specified congenital malformations of intestine - Peritoneal adhesions (postprocedural) (postinfection) 04/01/2025 09:25 ONIEL [facility] [place] TYPE: Surgery COMPLAINT: - COLECTOMY REVERSAL 10/09/2024 23:05 ONIEL [facility] [place] TYPE: Medical [...] Tubal ligation status - Tubal ligation status [email or web address]
[2025-04-27] MEDS ORDERED: LACTATED RINGER'S 1,000 ML IV ONE (08:15)
[2025-04-27 08:51] LABS: BASOPHILS 0.3 % (0.1-1.2); EOSINOPHILS 0.5 % (0.7-5.8); LYMPHOCYTES 12.4 % (19.3-51.7); MCH 24.7 PG (25.6-32.2); MCHC 31.7 g/dL (32.2-35.5); MCV 78.0 fL (79.4-94.8); MONOCYTES 5.3 % (4.7-12.5); NEUTROPHILS 81.3 % (34.0-71.1); RBC 4.13 M/uL (3.93-5.22)
[2025-04-27 09:10] LABS: LACTIC ACID, BLOOD 0.7 mmol/L (0.4-2.0)
[2025-04-27 09:21] LABS: ALT (SGPT) 18.0 U/L (14-59); AST (SGOT) 26.0 U/L (15-37); GLOMERULAR FILTRATION RATE,EST 119.0 mL/min (>60); PROTEIN, TOTAL 6.7 g/dL (6.4-8.2); UREA NITROGEN 7.0 mg/dL (7-18)
[2025-04-27 10:47] LABS: BLOOD/HGB, URINE NEGATIVE (Negative); KETONE, URINE NEGATIVE (Negative); LEUK ESTERASE, URINE NEGATIVE (negative); NITRITE, URINE NEGATIVE (negative)
[2025-04-27 10:57] LABS: BACTERIA, URINE NONE SEEN /hpf (negative); CASTS, URINE NONE SEEN \\lpf; CRYSTALS, URINE NONE SEEN (0-1+); EPITHELIAL CELLS, URINE SQUAMOUS 4+ /lpf (0-1+)
[2025-04-27 10:58] LABS: REFLEX CULTURE, URINE No (No)
[2025-04-27] MEDS ORDERED: ACETAMINOPHEN 325 MG TAB PO ONE (11:30)
[2025-04-27] MEDS ORDERED: HYDROCODON-ACE1 EA10 PO (12:48)
[2025-04-27] MEDS ORDERED: AMOX TR-K CLV1 EAC1 PO (12:48)
[2025-04-27 13:19] VITALS: BP 102/64
== END 2025-04-27 13:19 ==
LOC: ED 07:29
PROVIDERS: Emergency Medicine
DX: T81.31XA Disruption of external operation (surgical) wound, not elsewhere classified, initial encounter (principal); Z88.8 Allergy status to other drugs, medicaments and biological substances; Z79.899 Other long term (current) drug therapy
CPT/HCPCS: 36415; 74177; 80053; 81001; 83605; 85025; 96360; 99284-25; A9270; J7121; Q9967